=== PATIENT | male | born 1945 | race Caucasian/White ===

== ENCOUNTER 2019-06-29 12:12 | Emergency (ER) | payer OTHER ==
--- NOTE | 2019-06-29 13:42 | RAD REPORT ---
EXAM DESCRIPTION: RAD - Chest Pa And Lat (2 Views) - 06/29/2019 1:35 pm CLINICAL HISTORY: BLUNT CHEST TRAUMA Chest pain. COMPARISON: CHEST PA AND LAT 2 VIEW dated 02/02/2014; CHEST SINGLE VIEW dated 05/26/2009; CHEST SINGLE VIEW dated 05/23/2009; CHEST SINGLE VIEW dated 05/21/2009 FINDINGS: Emphysematous changes are present throughout the lungs. Nondisplaced left lateral seventh, eighth and ninth rib fractures seen. No pneumothorax. Trace left pleural fluid. Heart is mildly enla rged in size.
[2019-06-29] MEDS ORDERED: MORPHINE 4 MG/ML SYR ONE (14:33)
[2019-06-29] MEDS ORDERED: ONDANSETRON 4 MG/2 ML VIAL ONE (14:33)
--- NOTE | 2019-06-29 15:16 | RAD REPORT ---
EXAM DESCRIPTION: CT - Thorax Wo Con - 06/29/2019 2:41 pm CLINICAL HISTORY: PAIN, fall, left-sided chest pain, abnormal chest film COMPARISON: Chest Pa And Lat (2 Views) dated 06/29/2019 TECHNIQUE: Axial 5 mm thick images of the chest were obtained without IV contrast. All CT scans are performed using dose optimization technique as appropriate and may include automated exposure control or mA/KV adjustment according to patient size. FINDINGS: Lungs are fibrotic. Minimal atelectasis change in the posterior gutter. No pulmonary contu jose or acute significant lung parenchymal process. No pleural thickening or pleural effusion. No pne umothorax. No abnormal mediastinal or hilar masses or lymphadenopathy seen. No gross aortic or pulmonary artery finding suspected. Assessment is limited in the absence of IV contrast. No pericardial thickening or effusion. No chest wall mass or abnormal axillary lymphadenopathy. Prominent thoracic spine degenerative changes are present. No thoracic spine compression fracture. La teral left seventh- ninth ribs are fractured. These are nondisplaced fractures. There is questionable nondisplaced fracture of the left sixth rib. These are in a typical linear traumatic orientation. No significant hematoma in the soft tissues. IMPRESSION: Nondisplaced left lateral seventh- ninth rib fractures with questionable nondisplaced si xth rib fracture. Minimal atelectasis changes are present. No pneumothorax, pulmonary contusion or hemothorax.
--- NOTE | 2019-06-29 15:54 | EDPHYS ---
Physician Documentation [facility] Name: Mitch Jim Jr Age: 74 yrs Sex: Male : 1945 Arrival Date: 06/29/2019 Time: 12:16 Bed 20 Private MD: ED Physician Shawn Mota HPI: 06/28 19:56 This 74 yrs old Male presents to ER via Ambulatory with complaints of Fall tw4 Injury. 19:56 Details of fall: The patient fell from an upright position, while standing. tw4 19:56 Onset: The symptoms/episode began/occurred 3 day(s) ago. Associated injuries: The tw4 patient sustained left breast. The patient has not experienced similar symptoms in the past. Historical: - Allergies: 12:58 No Known Allergies; ca1 - Home Meds: 12:58 metoprolol tartrate 25 mg Oral tab 1 tab once daily [Active]; aspirin 81 mg Oral chew 1 ca1 tab once daily [Active]; Symbicort 160-4.5 mcg/actuation inhalation HFAA 2 puffs 2 times per day [Active]; temazepam 30 mg Oral cap 1 cap once daily [Active]; hydrocodone-acetaminophen 5-325 mg Oral tab 1 tab three times a day [Active]; gabapentin 600 mg oral tab 1 tab 3 times per day [Active]; cyclobenzaprine 10 mg Oral tab 1 tab daily [Active]; Requip 1 mg Oral tab 1 tab daily [Active]; - PMHx: 12:58 Hypertension; ca1 - Immunization history:: Adult Immunizations up to date, Pneumococcal vaccine is up to date, Flu vaccine is up to date. - Social history:: Smoking status: Patient reports the use of cigarette tobacco products, smokes one pack cigarettes per day. ROS: 19:56 Constitutional: Negative for fever, chills, and weight loss, Respiratory: Negative for tw4 shortness of breath, cough, wheezing, and pleuritic chest pain, Abdomen/GI: Negative for abdominal pain, nausea, vomiting, diarrhea, and constipation, Back: Negative for injury and pain, MS/Extremity: Negative for injury and deformity, Skin: Negative for injury, rash, and discoloration, Neuro: Negative for headache, weakness, numbness, tingling, and seizure. 19:56 Eyes: Negative for injury, pain, redness, and discharge. 19:56 Cardiovascular: Positive for chest pain, Negative for edema, orthopnea. Exam: 19:56 Constitutional: This is a well developed, well nourished patient who is awake, alert, tw4 and in no acute distress. Head/Face: Normocephalic, atraumatic. Cardiovascular: Regular rate and rhythm with a normal S1 and S2. No gallops, murmurs, or rubs. Normal PMI, no JVD. No pulse deficits. Respiratory: Lungs have equal breath sounds bilaterally, clear to auscultation and percussion. No rales, rhonchi or wheezes noted. No increased work of breathing, no retractions or nasal flaring. Abdomen/GI: Soft, non-tender, with normal bowel sounds. No distension or tympany. No guarding or rebound. No evidence of tenderness throughout. Back: No spinal tenderness. No costovertebral tenderness. Full range of motion. MS/ Extremity: Pulses equal, no cyanosis. Neurovascular intact. Full, normal range of motion. Neuro: Awake and alert, GCS 15, oriented to person, place, time, and situation. Cranial nerves II-XII grossly intact. Motor strength 5/5 in all extremities. Sensory grossly intact. Cerebellar exam normal. Normal gait. 19:56 Chest/axilla: Inspection: normal, Palpation: Vital Signs: 12:48 BP 128 / 73; Pulse 68; Resp 18 S; Temp 97(TE); Pulse Ox 97% on R/A; Weight 68.04 kg ca1 (R); Height 6 ft. 2 in. (187.96 cm) (R); Pain 7/10; 14:16 BP 143 / 65; Pulse 63; Resp 18; Temp 98.6; Pulse Ox 97% on R/A; mg2 16:10 BP 122 / 74; Pulse 63; Resp 18; Pulse Ox 96% on R/A; mg2 12:48 Body Mass Index 19.26 (68.04 kg, 187.96 cm) ca1 Johnny Coma Score: 13:56 Eye Response: spontaneous(4). Verbal Response: oriented(5). Motor Response: obeys mg2 commands(6). Total: 15. Trauma Score (Adult): 13:56 Eye Response: spontaneous(1); Verbal Response: oriented(1); Motor Response: obeys mg2 commands(2); Systolic BP: > 89 mm Hg(4); Respiratory Rate: 10 to 29 per min(4); Glasford Score: 15; Trauma Score: 12 MDM: 14:09 Patient medically screened. tw4 19:56 Differential diagnosis: abrasion, closed head injury, fracture. Data reviewed: vital tw4 signs, nurses notes. Counseling: I had a detailed discussion with the patient and/or guardian regarding: the historical points, exam findings, and any diagnostic results supporting the discharge/admit diagnosis. Special discussion: I discussed with the patient/guardian in detail that at this point there is no indication for admission to the hospital. It is understood, however, that if the symptoms persist or worsen the patient needs to return immediately for re-evaluation. 06/28 12:59 Order name: XRAY Chest Pa And Lat (2 Views); Complete Time: 13:55 ca1 06/28 14:16 Order name: CT Chest Wo Con; Complete Time: 15:51 tw4 06/28 15:51 Interpretation: Abnormal. tw4 Administered Medications: 15:00 Drug: morphine 4 mg Route: IVP; Site: right antecubital; mg2 16:10 Follow up: Response: No adverse reaction; Marked relief of symptoms; RASS: Alert and mg2 Calm (0) 15:00 Drug: Zofran (Ondansetron) 4 mg Route: IVP; Site: right antecubital; mg2 16:09 Follow up: Response: No adverse reaction mg2 Disposition: 06/29/19 15:53 Discharged to Home. Impression: Fracture of one rib, left side. - Condition is Stable. - Discharge Instructions: Rib Fracture, Dteb-so-Indt. - Medication Reconciliation Form, Thank You Letter, Antibiotic Education, Prescription Opioid Use form. - Follow up: Private Physician; When: Upon discharge from the Emergency Department; Reason: Recheck today's complaints, Continuance of care, Re-evaluation by your physician. - Problem is new. - Symptoms have improved. Signatures: Dispatcher [employer] EDMS Shawn Mota MD MD tw4 Dar Mayorga, MARIELA RN mg2 Danni Oliver RN RN ca1 Corrections: (The following items were deleted from the chart) 15:52 15:51 No acute disease except. tw4 tw4 16:20 15:53 06/29/2019 15:53 Discharged to Home. Impression: Fracture of one rib, left side. mg2 Condition is Stable. Forms are Medication Reconciliation Form, Thank You Letter, Antibiotic Education, Prescription Opioid Use. Follow up: Private Physician; When: Upon discharge from the Emergency Department; Reason: Recheck today's complaints, Continuance of care, Re-evaluation by your physician. Problem is new. Symptoms have improved. tw4
--- NOTE | 2019-06-29 15:54 | ER ---
Nurse's Notes [facility] Name: Mitch Jim Jr Age: 74 yrs Sex: Male : 1945 Arrival Date: 06/29/2019 Time: 12:16 Bed 20 Private MD: Diagnosis: Fracture of one rib, left side Presentation: 06/28 12:48 Chief complaint: Patient states: a week and half ago, Fell and hit the L side of the ca1 body. Chest Xray done on Saturday at [place]. Resulted today and told to come to the ER for rib fractures. Xray reads, "1) Fracture L lateral 7th through 9th ribs. 2) Small Pleural effusion. Cannot rule out small L hemothorax'. Coronavirus screen: The patient has NOT traveled to [place] in the past 14 days. The patient has NOT had contact with known and/or suspected case of Coronavirus. Ebola Screen: Patient negative for fever greater than or equal to 101.5 degrees Fahrenheit, and additional compatible Ebola Virus Disease symptoms Patient denies exposure to infectious person. Patient denies travel to an Ebola-affected area in the 21 days before illness onset. No symptoms or risks identified at this time. Initial Sepsis Screen: Does the patient meet any 2 criteria? No. Patient's initial sepsis screen is negative. Does the patient have a suspected source of infection? No. Patient's initial sepsis screen is negative. Risk Assessment: Do you want to hurt yourself or someone else? Patient reports no desire to harm self or others. Onset of symptoms was June 29, 2019. 12:48 Method Of Arrival: Ambulatory ca1 12:48 Acuity: MARYLIN 3 ca1 Triage Assessment: 12:58 General: Appears in no apparent distress. comfortable, Behavior is calm, cooperative, ca1 appropriate for age. Respiratory: Airway is patent Respiratory effort is even, unlabored, Respiratory pattern is regular, symmetrical. Historical: - Allergies: 12:58 No Known Allergies; ca1 - Home Meds: 12:58 metoprolol tartrate 25 mg Oral tab 1 tab once daily [Active]; aspirin 81 mg Oral chew 1 ca1 tab once daily [Active]; Symbicort 160-4.5 mcg/actuation inhalation HFAA 2 puffs 2 times per day [Active]; temazepam 30 mg Oral cap 1 cap once daily [Active]; hydrocodone-acetaminophen 5-325 mg Oral tab 1 tab three times a day [Active]; gabapentin 600 mg oral tab 1 tab 3 times per day [Active]; cyclobenzaprine 10 mg Oral tab 1 tab daily [Active]; Requip 1 mg Oral tab 1 tab daily [Active]; - PMHx: 12:58 Hypertension; ca1 - Immunization history:: Adult Immunizations up to date, Pneumococcal vaccine is up to date, Flu vaccine is up to date. - Social history:: Smoking status: Patient reports the use of cigarette tobacco products, smokes one pack cigarettes per day. Screenin:58 Abuse screen: Denies threats or abuse. Denies injuries from another. Nutritional mg2 screening: No deficits noted. Tuberculosis screening: No symptoms or risk factors identified. 14:00 Fall Risk mg2 Primary Survey: 13:56 NO uncontrolled hemorrhage observed. A: The patient is alert. Breathing/Chest: mg2 Respiratory pattern: regular, Respiratory effort: spontaneous, unlabored. Circulation:. Disability Alert. Exposure/Environment: All clothing and personal items were removed. Forensic evidence collection is not deemed to be indicated at this time. Items placed in patient belonging bag. There is no evidence of uncontrolled external bleeding. No obvious injuries are noted at this time. A warming method has been applied: A warm blanket has been provided to the patient. Assessment: 13:59 General: Appears in no apparent distress. comfortable, Behavior is calm, cooperative. mg2 Pain: Complains of pain in chest. Neuro: Level of Consciousness is awake, alert, obeys commands, Oriented to person, place, time, situation. Cardiovascular: Capillary refill < 3 seconds Patient's skin is warm and dry. Respiratory: Airway is patent Respiratory effort is even, unlabored, Respiratory pattern is regular, symmetrical. GI: No signs and/or symptoms were reported involving the gastrointestinal system. : No signs and/or symptoms were reported regarding the genitourinary system. EENT: No signs and/or symptoms were reported regarding the EENT system. Derm: Skin is intact, is healthy with good turgor, Skin is pink, warm \\T\\ dry. normal. Musculoskeletal: Circulation, motion, and sensation intact. Capillary refill < 3 seconds. 14:30 Reassessment: pt sent to ct scan. mg2 Vital Signs: 12:48 BP 128 / 73; Pulse 68; Resp 18 S; Temp 97(TE); Pulse Ox 97% on R/A; Weight 68.04 kg ca1 (R); Height 6 ft. 2 in. (187.96 cm) (R); Pain 7/10; 14:16 BP 143 / 65; Pulse 63; Resp 18; Temp 98.6; Pulse Ox 97% on R/A; mg2 16:10 BP 122 / 74; Pulse 63; Resp 18; Pulse Ox 96% on R/A; mg2 12:48 Body Mass Index 19.26 (68.04 kg, 187.96 cm) ca1 Johnny Coma Score: 13:56 Eye Response: spontaneous(4). Verbal Response: oriented(5). Motor Response: obeys mg2 commands(6). Total: 15. Trauma Score (Adult): 13:56 Eye Response: spontaneous(1); Verbal Response: oriented(1); Motor Response: obeys mg2 commands(2); Systolic BP: > 89 mm Hg(4); Respiratory Rate: 10 to 29 per min(4); Johnny Score: 15; Trauma Score: 12 ED Course: 12:16 Patient arrived in ED. mr 12:54 Triage completed. ca1 12:58 Arm band placed on right wrist. ca1 13:36 XRAY Chest Pa And Lat (2 Views) In Process Unspecified. EDMS 13:46 Shawn Mota MD is Attending Physician. tw4 13:52 aDr Mayorga, RN is Primary Nurse. mg2 13:59 No provider procedures requiring assistance completed. mg2 14:00 Patient has correct armband on for positive identification. mg2 14:30 Inserted saline lock: 20 gauge in right antecubital area, using aseptic technique. mg2 14:44 CT Chest Wo Con In Process Unspecified. EDMS 16:20 IV discontinued, intact, bleeding controlled, No redness/swelling at site. Pressure mg2 dressing applied. Administered Medications: 15:00 Drug: morphine 4 mg Route: IVP; Site: right antecubital; mg2 16:10 Follow up: Response: No adverse reaction; Marked relief of symptoms; RASS: Alert and mg2 Calm (0) 15:00 Drug: Zofran (Ondansetron) 4 mg Route: IVP; Site: right antecubital; mg2 16:09 Follow up: Response: No adverse reaction mg2 Intake: 13:56 PO: 0ml; Total: 0ml. mg2 Outcome: 15:53 Discharge ordered by MD. [email or web address] 16:20 Discharged to home ambulatory, with family. mg2 16:20 Condition: good 16:20 Discharge instructions given to patient, family, Instructed on discharge instructions, follow up and referral plans. Demonstrated understanding of instructions, follow-up care. 16:20 Patient left the ED. mg2 Signatures: Dispatcher [employer] TAIWO Elmer Sara valdivia Shawn Mota MD MD tw4 Dar Mayorga RN RN mg2 Danni Oliver RN RN ca1 Corrections: (The following items were deleted from the chart) 14:30 13:59 Patient did not have IV access during this emergency room visit. mg2 mg2
[2019-06-29 17:45] VITALS: TEMP 98.6
[2019-06-29 17:49] VITALS: BP 122/74; O2SAT 96
== END 2019-06-29 16:20 | disposition home or self-care (01) ==
LOC: ER 12:12
DX: S22.32XA Fracture of one rib, left side, initial encounter for closed fracture (principal); W19.XXXA Unspecified fall, initial encounter; Y93.9 Activity, unspecified; Y92.9 Unspecified place or not applicable; I10 Essential (primary) hypertension; F17.210 Nicotine dependence, cigarettes, uncomplicated
CPT/HCPCS: 71250; 71046; 96375; 96374; 99283; J2405

== ENCOUNTER 2021-04-27 17:58 | Inpatient (IN) | payer OTHER ==
--- NOTE | 2021-05-07 10:30 | R.PREADM ---
PRE-ADMISSION SCREENING FORM SCREENING DATE AND TIME 05/07/2021 10:00 (EST) ANTICIPATED REHAB ADMISSION DATE 05/07/2021 REFERRING FACILITY [facility] REFERRAL DATE AND TIME 04/28/2021 08:37 (APPLICATIONS CONSULTANT) REFERRAL ROOM# J704 ACUTE ADMIT DATE 04/27/2021 Previous Rehabilitation(s): No. 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 Jemma Nevarez REFERRING PHYSICIAN Dr. Jemma Nevarez REHAB FACILITY [facility] CLINICAL LIAISON [place] Nance PHYSICIAN REVIEWER Dr. Salvador Hager M.D. MR# [id number] NAME LUCIA JIM ADDRESS [address] [facility] [address] [facility] [id number] DATE OF 1945 AGE 76 SSN# [id number] GENDER male MARITAL STATUS RACE white PREF. LANGUAGE (IF NON-[place]ER) French ADMIT FROM 02 - [facility] PRE-HOSPITAL LIVING SETTING 01 - Home (private home/apt. board/care, assisted living, retirement, transitional living) HOME TYPE AND DETAILS Type of home: single family house # of steps to enter the residence: 0 # of steps within the residence: 0 # of levels in the residence: 1 PRE-HOSPITAL LIVING WITH Family/Relatives FAMILY SUPPORT Yes FAMILY SUPPORT DETAILS Per PT eval, pt reports living with his sister. PRIMARY FAMILY CONTACT NAME Megan Jim Jr PRIMARY FAMILY CONTACT PHONE PRIMARY FAMILY CONTACT RELATIONSHIP Spouse PHONE PRIMARY FAMILY CONTACT ON ADM.? no IS PRIMARY FAMILY CONTACT AUTH. REP.? no 1ST EMERGENCY CONTACT Megan Jim Jr 1ST CONTACT PHONE 1ST CONTACT RELATIONSHIP Spouse PHONE 1ST CONTACT ON ADM. no IS 1ST CONTACT AUTH. REP.? no PHONE 2ND CONTACT ON ADM.? no PATIENT EMPLOYMENT STATUS Not Working PATIENT EMPLOYER No Employer PAYOR INFORMATION: 1ST PAYOR NAME Medicare A B 1ST PAYOR 2ND PAYOR NAME [employer] 2ND PAYOR PHONE 2ND PAYOR INJURY/ILLNESS DUE TO ACCIDENT? No ANOTHER [employer] RESPONSIBLE? No PRIMARY REHAB/ACUTE DIAGNOSIS: Acute L MCA stroke ONSET DATE 04/27/2021 REHAB IMPAIRMENT CATEGORY (SHAWN): 01 Stroke (STR) MEETS 60% rule AFFECTED EXTREMITIES: RLE, and RUE PRIMARY DIAGNOSIS-RELATED SURGERIES: Cerebral Angiogram 04/27/2021 Peg tube placement 05/03/2021 INTERVENTIONS: - Dysarthria/Dysphagia Peg tube placed 05/03/2021 per pt's chart - Respiration Supplemental O2 as needed to maintain O2 sats above 88% per MD progress note 05/03/2021 - CV BP control gaol SBP < 140, on lisinopril 5mg po qday, titrate oral agents - per MD progress note 08/2021 - Hyperlipidemia LDL 19 at goal <70, low dose statin for pleiotropic effect - per MD progress note 05/03/2021 - HF TTE shows 30-35% and diffuse hypokinesis; no change from previous, Metoprolol 25 mg BID, lisinopril 5 mg - per MD progress note - Renal Avoid Nephrotoxic agents - per MD progress note 05/03/2021 - HEME Anemia, monitor, transfuse for Hb <7 - per MD progress note 05/03/2021 - ID, PNA, possible aspiration, MRSA+ s/p ceftriaxone, vancomycin, flagyl started 04/28, afebrile, no leukocytosis since then --> de-escala te to po clindamycin to complete 7 days (started 05/02) - per MD progress note 05/03/2021 - Prophylaxis DVT: SQH, Bowel regimen: senna; last BM 05/01 - per MD progress note 05/03/2021 RISK FOR COMPLICATIONS: - Aspiration Clinical staff will monitor for coughing, drooling, congestion Nursing will monitor patient swallowing during meals Speech will evaluate swallowing and dysphagia Swallowing difficulties per therapy notes. Monitor for signs of aspiration. NURSING OFFICER as ordered by MD patient on peg tube 05/03/2021 - UTI Monitor for frequency, burning, discomfort, or incontinence - CVA Monitor signs and symptoms of stroke - PNA Clinical staff to encourage OOB movements/tasks/activities Clinical staff to encourage breathing exercises - Skin Breakdown Nursing will assess skin daily using assessment tool and will place on Skin Breakdown Precautions as Indicated per protocol - Pain Clinical staff will assess patient's pain level every shift per protocol to monitor for pain manageme nt effectiveness Educate patient on pain management strategies Medications will be given and the pain level reassessed. Clinical Staff may employ other methods such as: massage, distraction, decrease stimulus, etc. as needed - Falls Educated pt on fall prevention strategies to reduce/eliminate fall risk Patient will be evaluated for Fall Precautions and will be placed on Fall Precautions as indicated pe r protocol. - Impaired Safety Educate patient on safety awareness strategies. Educate patient on safety hazards - Bleeding Monitor lab values - Limb Ischemia Assess circulation each shift Report any changes to MD - Sespsis Monitor lab values - Respiratory Monitor O2 sats. SUMMARY OF ACUTE HOSPITALIZATION: On 04/27/2021 Pt. presented to [facility] with sudden onset of right-side weakness. Pt. is a 76 yo white male. On 04/27/2021 he was admitted to [facility] with diagnosis Acute L MCA stroke. His impairment category is Stroke 01 - Right Body (Left Brain) (01.2). Pre-morbidly, Pt. was independent/mod-I in Safety Awareness, Locomotion, Social Cognition, Transfers Control, and Balance; and he had good Transfers Control, Sphincter Control, Self-Care, Communication, and Endurance. Currently, he has deficits of Locomotion, Safety Awareness, Social Cognition, Balance, Transfers Cont rol, Sphincter Control, Self-Care, Communication, and Endurance. Pt. is now referred to [facility] for acute in-patient rehabilitation in order to maximize patient's functional independence in activities of daily living, strength, ROM, and mobi lity. Patient has realistic goal of being discharged at assistance level partial assist to independent to r eside at Home with Family/Relatives. interdisciplinary approach by acute IRF, pt. demonstrates great potential and motivation to get stronger, safer, and more independent to return to [facility]. Pt demonstrates a strong need for an intensive team: rehab doctor, nurse, social insurance analyst, and therapist to meet functional and medical goals. It is reasonable and necessary for the patient to come to acute IRF to safely dc. Pt is medically stable but in need of 24 hour nursing, doctor supervision, and oversight while receiving active and ongoing intensive (OT/PT/ST). The patient is reasonably expected to participate in 3 hours of therapy a day/15 hours a week. COVID-19 screening performed. Patient denies a new onset of fever, cough, difficulty breathing, sore throat, body aches and non-allergy nasal congestion in the past 24 hours. Patient denies travel outside of [place] in the past 14 days. Patient denies any contact with someone who has a confirmed diagnosis of or is under investigation for COVID-19 in the past 14 days. Patient has been tested negative for COVID- 19. 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 PAST SURGICAL HISTORY: Percutaneous endoscopic gastrostomy tube placement 05/03/2021 Cerebral Angiogram 04/27/2021 MEDICATION ALLERGIES: No Known Drug Allergies (NKDA) ENVIRONMENTAL ALLERGIES: None Known - Substance Allergies None Known - Other Allergies None Known CODE STATUS: Full code WEIGHT/HEIGHT/BMI: WEIGHT 154 lbs HEIGHT ' 6.0" BMI 20.9 DIET: - Diet Type NPO - Diet - Solid Texture Regular - Diet - Liquid Texture Regular - Tube Feed N/A Pt found to have L brain stroke causing increased weakness, facial droop, and decreased sensitivity t o R side - per pt's chart REVIEW OF SYSTEMS: - Gen Alert and awake Lying in bed No apparent distress Oriented to: person, time, and place - Vital Signs Temperature: 97.6 F SBP/DBP: 132/76 Pulse: 86 Resp: 21 Vital signs stable, afebrile - CVS RRR VITAL SIGNS Temperature: 97.6 F SBP/DBP: 132/76 Pulse: 86 Resp: 21 Vital signs stable, afebrile Vitals obtained in pt's chart, documented by nursing 05/02/2021 MEDICATIONS/TREATMENT: Other- See attached MAR (Medication Administration Record). CURRENT SPHINCTER CONTROL: Pre-hospital bladder status: unspecified # of bladder accidents in the last 7 days prior to screenin Pre-hospital bowel status: unspecified # of bowel accidents in the last 7 days prior to screenin Last Bowel Movement Date: 05/07/2021 CURRENT LOCOMOTION STATUS: distance walked 0 feet DETAILED CURRENT FUNCTIONAL STATUS: - Bladder accident frequency: 7-Ind - No accidents in the past 7 days - Bowel accident frequency: 7-Ind - No accidents in the past 7 days - Walking score based on distance walked: 0(N/A) - Wheelchair score based on distance traveled: 0(N/A) QI SCORES: - Self-Care A. Eating 01-Dependent B. Oral hygiene 03-Partial/moderate assistance C. Toileting hygiene 02-Substantial/maximal assistance E. Shower/bathe self 02-Substantial/maximal assistance F. Upper body dressing 03-Partial/moderate assistance G. Lower body dressing 02-Substantial/maximal assistance H. Putting on/taking off footwear 02-Substantial/maximal assistance - Mobility A. Roll left and right 03-Partial/moderate assistance B. Sit to lying 03-Partial/moderate assistance C. Lying to sitting on side of bed 03-Partial/moderate assistance D. Sit to stand 03-Partial/moderate assistance E. Chair/taq-ia-nxxhl transfer 03-Partial/moderate assistance F. Toilet transfer 03-Partial/moderate assistance G. Car transfer 88-Not attempted due to medical condition or safety concerns I. Walk 10 feet 88-Not attempted due to medical condition or safety concerns J. Walk 50 feet with two turns 88-Not attempted due to medical condition or safety concerns K. Walk 150 feet 88-Not attempted due to medical condition or safety concerns L. Walking 10 feet on uneven surfaces 88-Not attempted due to medical condition or safety concerns M. 1 step (curb) 88-Not attempted due to medical condition or safety concerns N. 4 steps 88-Not attempted due to medical condition or safety concerns O. 12 steps 88-Not attempted due to medical condition or safety concerns P. Picking up object R. Wheel 50 feet with two turns 88-Not attempted due to medical condition or safety concerns S. Wheel 150 feet 88-Not attempted due to medical condition or safety concerns - Bladder and Bowel Bladder continence Bowel continence - Endurance Fair - Balance Fair - Safety Awareness Fair CURRENT FUNC. DEFICITS: Self-Care, Mobility, Endurance, Balance, and Safety Awareness CURRENT / PREVIOUS ASSISTIVE DEVICES: Oxygen Rolling Walker HISTORY OF FALLS. HAS THE PATIENT HAD TWO OR MORE FALLS IN THE PAST YEAR OR ANY FALL WITH INJURY IN T HE PAST YEAR?: Unknown PRIOR SURGERY. DID THE PATIENT HAVE MAJOR SURGERY DURING THE 100 DAYS PRIOR TO ADMISSION?: Yes THERAPY NOTES FROM ACUTE CARE: Gabrielle Jim Jr Clinicals.pdf ached. SPECIAL NEEDS: - Safety Concerns Skin breakdown precautions needed due to skin breakdown risk Fall precautions needed due to Fall history, Poor balance, and High fall risk Chair alarm - Respiratory Supplemental oxygen: 3 liters Nasal Canula - per OT note - Feeding Tube PEG tube - Limb precaution awareness to right side due to increased weakness as a result of stroke PRECAUTIONS: - Weight Bearing Precaution WBAT all extremities per pt's chart - Fall Precaution Bed alarm TABS alarm Wheel chair alarm - Skin Breakdown Risk skin assessments - Aspiration Precaution Pt on peg tube feeding - Safety Fall risk assist with xfers/STS - O2 saturations monitor O2 levels - Stroke Monitor signs and symptoms of stroke PATIENT NEEDS ACTIVE AND ONGOING THERAPEUTIC INTERVENTION OF MULTIPLE THERAPY DISCIPLINES, INCLUDING: - Dietary and Nutrition Adequate Nutrition. Nutritional Education. Nutritional Supplements. - Occupational Therapy Cognitive Retraining. Evaluate and Treat. ADL Training. Adaptive Equipment. Eating. Household Tasks. Patient/Family Education. Safety Awareness. Transfer Training. UE ROM. UE Strengthening. Visual Perce ptual Training. - Speech Therapy Cognitive Training. Expressive Language Skills. Memory Strategies. Receptive Language Skills. Speech Intelligibility Training. - Physical Therapy Balance Training. Evaluate and Treat. Gait Training. LE ROM. LE Strengthening. Medical Equipment Asse ssment and Evaluation. Mobility Training. Patient/Family Education. Safety Awareness. Transfer Traini ng. PATIENT NEEDS CLOSE MEDICAL SUPERVISION BY A REHABILITATION PHYSICIAN FOR: Coordination of Treatment Team Medical and Co-Morbidity Management Pain Management Post-Op follow up medication management PATIENT REQUIRES 24X7 REHAB NURSING FOR MEDICAL AND FUNCTIONAL MGT. 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 - Consensus on plan Discharge plan has been discussed with primary caregiver. Patient/Family is in agreement with the radha n. Primary caregiver is in agreement with the plan. - Patient/Family Goals Return home independently. - Planned Living Setting Upon Discharge Home, to live with Family/Relatives. Transitional Living. RECOMMENDED CARE LEVEL: IRF RECOMMENDATION DETAILS: Recommended Admission to Comprehensive Rehabilitation Program to Increase Functional Thayer SCREENER'S COMPLETENESS CONFIRMATION: - Screening Confirmation The patient data collection on this preadmission screening form is finished PHYSICIANS REVIEW AND ADMISSION DETERMINATION Admit - Based on my review of the Pre-Admission Screening results, in my medical judgment and experie nce, I concur with the findings and recommend admission to [facility], as this patient requires an IRF level of care. SIGNATURE PANEL: Air Brake Tester - [electronically] signed by Andrea Wallace on 05/05/2021 at 15:08 (APPLICATIONS CONSULTANT) Air Brake Tester - [electronically] signed by Soy Armstrong PT on 05/07/2021 at 10:10 (APPLICATIONS CONSULTANT) Physician Reviewer - [electronically] signed by Dr. Salvador Hager M.D. on 05/07/2021 at 10:29 (APPLICATIONS CONSULTANT )
--- OUTSIDE RECORDS SUMMARY | 2021-05-07 15:49 | XMS REPORT | Continuity of Care Document ---
:1945 Author Organization [facility] t Address [address] [place] [id number] Care Team Providers Name Role Phone Unavailable Unavailable Unavailable Problems This patient has no known problems. Allergies, Adverse Reactions, Alerts This patient has no known allergies or adverse reactions. Medications This patient has no known medications. Procedures This patient has no known procedures. Encounters Start End Encounter Admission Attending Care Care Encounter Source Date/Time Date/Time Type Type Clinicians Facility Department ID 2020-02-25 2020-02-[address] [facility] [id number] [facility] 00:00:00 00:00:00 Bernardino Donohue ent Clinics Results This patient has no known results.
[2021-05-07 16:36] VITALS: BMI 15.1
[2021-05-07] MEDS ORDERED: DOCUSATE NA/SENNA CONC 1 TAB PO PRN (18:26)
[2021-05-07] MEDS ORDERED: [UNRECOGNIZED DRUG - MIXTURE] FT SCH (18:30)
[2021-05-07 19:14] LABS: Urine Appearance CLEAR (Clear); Urine Bilirubin NEGATIVE (Negative); Urine Blood NEGATIVE (Negative); Urine Color YELLOW (Yellow); Urine Glucose NEGATIVE (Negative); Urine Protein NEGATIVE (Negative); Urine pH 7.5 (5.0-7.0)
[2021-05-07 19:21] LABS: Urine Microscopic Reflex NO UMIC
[2021-05-07] MEDS ORDERED: ALBUTEROL 2.5 MG/3 ML NEB SOL NEB SCH (20:00)
[2021-05-07] MEDS ORDERED: PIPERACIL/TAZO 3.375 GM VIAL IV ONE (20:17)
[2021-05-07] MEDS ORDERED: VANCOMYCIN 500 MG/VIAL ONE (20:25)
[2021-05-07] MEDS ORDERED: NA CHLORIDE 0.9% 250 ML ONE (20:46)
[2021-05-07] MEDS: VANCOMYCIN 750 MG in NA CHLORIDE 0.9% 150 ML IVPB SCH (21:00)
[2021-05-07] MEDS: MELATONIN 3 MG TABLET PO SCH (21:00)
[2021-05-07] MEDS: APIXABAN 5 MG TABLET PO SCH (21:02)
[2021-05-07] MEDS: ROSUVASTATIN 10 MG TAB PO SCH (21:03)
[2021-05-07] MEDS ORDERED: WATER FOR INJ,STERILE 10 ML ONE (21:09)
[2021-05-07] MEDS: ACETAMINOPHEN 160 MG/5 ML UCUP PO PRN (21:16)
[2021-05-07] MEDS: PIPER TAZO 3.375 GM in NA CHLORIDE 0.9% 100 ML IV SCH (22:44)
[2021-05-08] MEDS: PIPER TAZO 3.375 GM in NA CHLORIDE 0.9% 100 ML IV SCH ×3 (01:00→16:14)
[2021-05-08] MEDS: METOPROLOL TAR 25 MG TAB PO SCH ×2 (05:07→17:11)
[2021-05-08 06:34] LABS: Absolute Lymphocytes (CBC) 0.9 K/uL (0.7-4.9); Hematocrit 38.5 % (39.6-49.0); Lymphocytes % 8.8 % (15.3-44.8); MPV 7.2 fL (7.6-11.3); RBC Red Blood Cell Count 4.23 M/uL (4.33-5.43)
[2021-05-08 06:52] LABS: Albumin 2.3 g/dL (3.4-5.0); BUN Blood Urea Nitrogen 28 mg/dL (7-18); Bicarbonate 32 mmol/L (21-32); Glucose Level 120 mg/dL (74-106); Magnesium 1.9 mg/dL (1.8-2.4); Potassium 4.2 mmol/L (3.5-5.1); Prealbumin 19.8 mg/dL (20-40); Sodium Level 135 mmol/L (136-145)
[2021-05-08] MEDS: MULTIVITAMINS 5 ML ORAL SYR FT SCH ×2 (08:00→13:40)
[2021-05-08] MEDS ORDERED: lisinopriL 10 MG TAB PO SCH (08:00)
[2021-05-08] MEDS: THIAMINE HCL 100 MG TABLET PO SCH (08:03)
[2021-05-08] MEDS: NICOTINE 7 MG/PAT TD SCH (08:03)
[2021-05-08] MEDS: APIXABAN 5 MG TABLET PO SCH ×2 (08:03→19:42)
[2021-05-08] MEDS: FAMOTIDINE 20 MG TAB PO SCH ×2 (08:03→19:37)
[2021-05-08] MEDS: VANCOMYCIN 750 MG in NA CHLORIDE 0.9% 150 ML IVPB SCH (08:05)
--- NOTE | 2021-05-08 17:12 | R.HP ---
HISTORY AND PHYSICAL FACILITY: [facility] ENCOUNTER DATE AND TIME: 05/08/2021 16:56 (SHOE TURNER) MR#: [id number] NAME LUCIA BACON ADDRESS: [address] [place] [address]: [place] STATE: [place] [id number] PHONE: DATE OF : 1945 AGE: 76 SSN# [id number] GENDER: Male DEXTERITY Unknown dexterity MARITAL STATUS RACE White PRE-HOSPITAL LIVING SETTING 01 - Home (private home/apt. board/care, assisted living, senior living, transitional living) PRE-HOSPITAL LIVING WITH Family/Relatives ENCOUNTER PHYSICIAN: Dr. Salvador Hager M.D. REFERRING DOCTOR: Dr. Jemma Nevarez DATE OF ADMISSION: 05/07/2021 15:42 (SHOE TURNER) REFERRING FACILITY [facility] HOME TYPE AND DETAILS: Type of home: single family house # of steps to enter the residence: 0 # of steps within the residence: 0 # of levels in the residence: 1 ONSET DATE: 04/27/2021 PRIMARY DIAGNOSIS-RELATED SURGERIES: Cerebral Angiogram 04/27/2021 Peg tube placement 05/03/2021 HISTORY OF PRESENT ILLNESS (HPI): On 04/27/2021 Pt. presented to [facility] with sudden onset of right-side weakness. Pt. is a 76 yo white male. On 04/27/2021 he was admitted to [facility] with diagnosis Acute L MCA stroke. His impairment category is Stroke 01 - Right Body (Left Brain) (01.2). Pre-morbidly, Pt. was independent/mod-I in Safety Awareness, Locomotion, Social Cognition, Transfers Control, and Balance; and he had good Transfers Control, Sphincter Control, Self-Care, Communication, and Endurance. Currently, he has deficits of Locomotion, Safety Awareness, Social Cognition, Balance, Transfers Cont rol, Sphincter Control, Self-Care, Communication, and Endurance. Pt. is now referred to [facility] for acute in-patient rehabilitation in order to maximize patient's functional independence in activities of daily living, strength, ROM, and mobi lity. Patient has realistic goal of being discharged at assistance level partial assist to independent to r eside at Home with Family/Relatives. interdisciplinary approach by acute IRF, pt. demonstrates great potential and motivation to get stronger, safer, and more independent to return to [facility]. Pt demonstrates a strong need for an intensive team: rehab doctor, nurse, child welfare social worker, and therapist to meet functional and medical goals. It is reasonable and necessary for the patient to come to acute IRF to safely dc. Pt is medically stable but in need of 24 hour nursing, doctor supervision, and oversight while receiving active and ongoing intensive (OT/PT/ST). The patient is reasonably expected to participate in 3 hours of therapy a day/15 hours a week. COVID-19 screening performed. Patient denies a new onset of fever, cough, difficulty breathing, sore throat, body aches and non-allergy nasal congestion in the past 24 hours. Patient denies travel outside of [place] in the past 14 days. Patient denies any contact with someone who has a confirmed diagnosis of or is under investigation for COVID-19 in the past 14 days. Patient has been tested negative for COVID- 19. 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 PAST SURGICAL HISTORY: Percutaneous endoscopic gastrostomy tube placement 05/03/2021 Cerebral Angiogram 04/27/2021 SOCIAL HISTORY: - Home Living Family/Relatives REVIEW OF SYSTEMS: - Gen No Chills Fatigue No Fever - Eyes No Double Vision No itchiness - ENMT Difficulty Swallowing - CVS No Chest Discomfort No Chest Pain Fatigue No Weight Gain - Resp No Cough No Shortness of Breath - GI Continent No Abdominal Pain Constipation No Diarrhea - Continent No Kidney Pain No Painful Urination No Urinary Urgency - MSK No Joint Pain Muscle Cramps Stiffness - Skin No Itching No Rash No Suspicious Lesions - Neuro Coordination Difficulty No Difficulty with Concentration No Memory Loss No Seizures Weakness - Psych No Anxiety No Depression No HIV Exposure No Persistent Infections No Seasonal Allergies - Endo No Cold/Heat Intolerance No Excessive Hunger No Excessive Thirst No Excessive Urination PHYSICAL EXAM - Gen Alert and awake Lying in bed No apparent distress Oriented to: person, time, and place - Skin No breakdown No abnormalities - Eyes No abnormalities - ENMT No abnormalities - Neck No abnormalities - CVS RRR - Chest Mildly decreased breath sounds bilaterally. - Abd Soft - GI + bowel sounds Deferred - No abnormalities - Ext Mild right lower extremity edema. - MSK 4+/5 weakness in left upper and lower extremity - Neuro 4/5 strength right upper and lower extremities. - Psych No abnormalities - OTHER Ambulated 250' with contact guard assistance using a rolling walker. VITAL SIGNS Temperature: 98.0 F SBP/DBP: 118/58 Pulse: 66 Resp: 18 NURSING: - Shower allowing shower - Bladder care per protocol - Skin care per protocol PRECAUTIONS: - Weight Bearing Precaution WBAT all extremities per pt's chart - Fall Precaution Bed alarm TABS alarm Wheel chair alarm - Skin Breakdown Risk skin assessments - Aspiration Precaution Pt on peg tube feeding - Safety Fall risk assist with xfers/STS - O2 saturations monitor O2 levels - Stroke Monitor signs and symptoms of stroke ACTIVITIES OOB only with supervision QI SCORES: - Self-Care A. Eating 01-Dependent B. Oral hygiene 03-Partial/moderate assistance C. Toileting hygiene 02-Substantial/maximal assistance E. Shower/bathe self 02-Substantial/maximal assistance F. Upper body dressing 03-Partial/moderate assistance G. Lower body dressing 02-Substantial/maximal assistance H. Putting on/taking off footwear 02-Substantial/maximal assistance - Mobility A. Roll left and right 03-Partial/moderate assistance B. Sit to lying 03-Partial/moderate assistance C. Lying to sitting on side of bed 03-Partial/moderate assistance D. Sit to stand 03-Partial/moderate assistance E. Chair/mhg-[id number]-[id number] transfer 03-Partial/moderate assistance F. Toilet transfer 03-Partial/moderate assistance G. Car transfer 88-Not attempted due to medical condition or safety concerns I. Walk 10 feet 88-Not attempted due to medical condition or safety concerns J. Walk 50 feet with two turns 88-Not attempted due to medical condition or safety concerns K. Walk 150 feet 88-Not attempted due to medical condition or safety concerns L. Walking 10 feet on uneven surfaces 88-Not attempted due to medical condition or safety concerns M. 1 step (curb) 88-Not attempted due to medical condition or safety concerns N. 4 steps 88-Not attempted due to medical condition or safety concerns O. 12 steps 88-Not attempted due to medical condition or safety concerns P. Picking up object R. Wheel 50 feet with two turns 88-Not attempted due to medical condition or safety concerns S. Wheel 150 feet 88-Not attempted due to medical condition or safety concerns - Bladder and Bowel Bladder continence Bowel continence - Endurance Fair - Balance Fair - Safety Awareness Fair CURRENT [facility]. DEFICITS: Self-Care, Mobility, Endurance, Balance, and Safety Awareness MEDICATIONS: - Other See attached MAR (Medication Administration Record) ASSESSMENT: On 04/27/2021 Pt. presented to [facility] with sudden onset of right-side weakness.Pt. is a 76 yo white male.On 04/27/2021 he was admitted to [facility] with diagnosis Acute L MCA stroke.His impairment category is Stroke 01 - Right Body (Left Brain) (01.2).Pre-morbidly, Pt. was independent /mod-I in Safety Awareness, Locomotion, Social Cognition, Transfers Control, and Balance; and he had good Transfers Control, Sphincter Control, Self-Care, Communication, and Endurance.Currently, he has deficits of Locomotion, Safety Awareness, Social Cognition, Balance, Transfers Control, Sphincter Con trol, Self-Care, Communication, and Endurance.Pt. is now referred to [facility] for acute in-patient rehabilitation in order to maximize patient's functional independence in activ ities of daily living, strength, ROM, and mobility.- Rehab Goal Patient has realistic goal of being discharged at assistance level partial assist to independent to r eside at Home with Family/Relatives. interdisciplinary approach by acute IRF, pt. demonstrates great potential and motivation to get stronger, safer, and more independent to return to [facility]. Pt demonstrates a strong need for an intensive team: rehab doctor, nurse, child welfare social worker, and therapist to meet functional and medical goals. It is reasonable and necessary for the patient to come to acute IRF to safely dc. Pt is medically stable but in need of 24 hour nursing, doctor supervision, and oversight while receiving active and ongoing intensive (OT/PT/ST). The patient is reasonably expected to participate in 3 hours of therapy a day/15 hours a week. COVID-19 screening performed. Patient denies a new onset of fever, cough, difficulty breathing, sore throat, body aches and non-allergy nasal congestion in the past 24 hours. Patient denies travel outside of [place] in the past 14 days. Patient denies any contact with someone who has a confirmed diagnosis of or is under investigation for COVID-19 in the past 14 days. Patient has been tested negative for COVID- 19.REHAB PLAN: for Dementia, TBI, Stroke, or others - Physical Therapy Gait dysfunction - to improve, our physical therapists will perform initial evaluation of pt's status upon admission and devise an individualized program for Gait Training, and Wheel Chair mobility Inability to transfer - to improve, our physical therapists will perform initial evaluation of pt's s tatus upon admission and devise an individualized program for Bed mobility Need for home safety evaluation - to improve, our physical therapists will perform initial evaluation of pt's status upon admission and devise an individualized program for Home Evaluation Need in caregiver upon discharge - to improve, our physical therapists will perform initial evaluatio n of pt's status upon admission and devise an individualized program for Caregiver Training New precaution - to improve, our physical therapists will perform initial evaluation of pt's status u fredy admission and devise an individualized program for Patient precaution education Edema - to improve, our physical therapists will perform initial evaluation of pt's status upon admi ssion and devise an individualized program for Elevation Training, and Lymphedema Therapy Poor balance - to improve, our physical therapists will perform initial evaluation of pt's status upo n admission and devise an individualized program for Balance Training Poor endurance - to improve, our physical therapists will perform initial evaluation of pt's status u fredy admission and devise an individualized program for Endurance Training Weakness - to improve, our physical therapists will perform initial evaluation of pt's status upon ad mission and devise an individualized program for Aquatic Therapy, Neuromuscular Reeducation, and Stre ngthening Achieving independence - to improve, our physical therapists will perform initial evaluation of pt's status upon admission and devise an individualized program for Community Reintegration Activities - Occupational Therapy ADL deficits - to improve, our occupation therapists will perform initial evaluation of pt's status u fredy admission and devise an individualized program for Bathing, Bed mobility, Community Reintegration , Cooking, Dressing, Eating, Fine Motor Skills, Grooming, Homemaking, Kitchen Mobility, Laundry, Marisabel ent Education, Safety Awareness, Splinting - Positioning, Transfers(Toilet, Tub, Shower), and Wheel C hair Management Cognitive deficits - to improve, our occupation therapists will perform initial evaluation of pt's st atus upon admission and devise an individualized program for Cognition - orientation Need for patient care representative - to improve, our occupation therapists will perform initial evaluation of pt's s tatus upon admission and devise an individualized program for Caregiver Training Weakness - to improve, our occupation therapists will perform initial evaluation of pt's status upon admission and devise an individualized program for Aquatic Therapy, Balance, Endurance, UE ROM, and U E strengthening MEDICAL PLAN: - Diet Type Start NPO - Diet - Liquid Texture Start Regular - Tube Feed Start N/A - Bladder care per protocol - Skin Breakdown Risk skin assessments - Aspiration Precaution Pt on peg tube feeding - Weight Bearing Precaution WBAT all extremities - Fall Precaution Bed alarm TABS alarm Wheel chair alarm - Skin care per protocol - Other See attached MAR (Medication Administration Record) - Diet - Solid Texture Regular - Shower shower - Safety Fall risk assist with xfers/STS - O2 saturations monitor O2 levels - Stroke Monitor signs and symptoms of stroke DISCHARGE PLAN: - Estimated Length of Stay (days) 17. - Consensus on plan Discharge plan has been discussed with primary caregiver. Patient/Family is in agreement with the radha n. Primary caregiver is in agreement with the plan. - Patient/Family Goals Return home independently. - Planned Living Setting Upon Discharge Home, to live with Family/Relatives. Transitional Living. SIGNATURE PANEL: (SHOE TURNER)
--- NOTE | 2021-05-08 17:14 | PAPE ---
POST ADMISSION PHYSICIAN EVALUATION PATIENT: [facility] MR# [id number] REFERRING DOCTOR Dr. Jemma Nevarez EVALUATION DATE AND TIME 05/08/2021 17:12 (COUNTERINTELLIGENCE AGENT) NAME LUCIA BACON DATE OF 1945 AGE 76 PHONE N# [id number] GENDER male EVALUATING PHYSICIAN Dr. Salvador Hager M.D. ADMISSION DIAGNOSIS: Acute L MCA stroke ONSET DATE 04/27/2021 POST-ADMISSION FUNCTIONAL/MEDICAL STATUS: - Bladder Same accident frequency: 7-Ind - No accidents in the past 7 days - Bowel Same accident frequency: 7-Ind - No accidents in the past 7 days - Walking Same score based on distance walked: 0(N/A) - Wheelchair Same score based on distance traveled: 0(N/A) STATUS CHANGE EVALUATION: No change in Functional or Medical Status is identified compared with Pre-Admission screening. PATIENT NEEDS CLOSE MEDICAL SUPERVISION BY A REHABILITATION PHYSICIAN FOR: Coordination of Treatment Team Medical and Co-Morbidity Management Pain Management Post-Op follow up medication management PATIENT REQUIRES 24X7 REHAB NURSING FOR MEDICAL AND FUNCTIONAL MGT. OF THE FOLLOWING DEFICITS: Disease Management Medication Management Providing Safe Environment ADL's Ambulation Communication Pain Management Skin Integrity Swallowing Transfers PATIENT REQUIRES INTENSIVE, COORDINATED INTERDISCIPLINARY APPROACH TO REHAB: Arranging Home Equipment/Services Discharge Planning Family Intervention/Training Gas Or Water Meter Installer/Case Management LIST OF IDENTIFIED AND POTENTIAL PROBLEMS: Alteration in air exchange Alteration in leisure activities Bladder, Incontinence Bowel, Incontinence Falls, Actual or Potential Infection, Actual or Potential Mobility Impaired Pain, Alteration in Comfort Self Care Deficit Skin Integrity, Actual or Potential Urinary Tract Infection (UTI), Actual or Potential RISK FOR COMPLICATIONS - Aspiration Clinical staff will monitor for coughing, drooling, congestion. Nursing will monitor patient swallowi ng during meals. Speech will evaluate swallowing and dysphagia. Swallowing difficulties per therapy n otes. Monitor for signs of aspiration. ANIMAL CARE SPECIALIST as ordered by . patient on peg tube 05/03/2021. - UTI Monitor for frequency, burning, discomfort, or incontinence. - CVA Monitor signs and symptoms of stroke. - PNA Clinical staff to encourage OOB movements/tasks/activities. Clinical staff to encourage breathing exe rcises. - Skin Breakdown Nursing will assess skin daily using assessment tool and will place on Skin Breakdown Precautions as Indicated per protocol. - Pain Clinical staff will assess patient's pain level every shift per protocol to monitor for pain manageme nt effectiveness. Educate patient on pain management strategies. Medications will be given and the pa in level reassessed. Clinical Staff may employ other methods such as: massage, distraction, decrease stimulus, etc. as needed. - Falls Educated pt on fall prevention strategies to reduce/eliminate fall risk. Patient will be evaluated fo r Fall Precautions and will be placed on Fall Precautions as indicated per protocol. - Impaired Safety Educate patient on safety awareness strategies. Educate patient on safety hazards. - Bleeding Monitor lab values. - Limb Ischemia Assess circulation each shift. Report any changes to MD. - Sespsis Monitor lab values. - Respiratory Monitor O2 sats. INTERVENTIONS - Dysarthria/Dysphagia Peg tube placed 05/03/2021 per pt's chart. - Respiration Supplemental O2 as needed to maintain O2 sats above 88% per MD progress note 05/03/2021. - CV BP control gaol SBP < 140, on lisinopril 5mg po qday, titrate oral agents - per MD progress note 08/2021. - Hyperlipidemia LDL 19 at goal <70, low dose statin for pleiotropic effect - per MD progress note 05/03/2021. - HF TTE shows 30-35% and diffuse hypokinesis; no change from previous, Metoprolol 25 mg BID, lisinopril 5 mg - per MD progress note. - Renal Avoid Nephrotoxic agents - per MD progress note 05/03/2021. - HEME Anemia, monitor, transfuse for Hb <7 - per MD progress note 05/03/2021. - ID, PNA, possible aspiration, MRSA+ s/p ceftriaxone, vancomycin, flagyl started 04/28, afebrile, no leukocytosis since then --> de-escala te to po clindamycin to complete 7 days (started 05/02) - per MD progress note 05/03/2021. - Prophylaxis DVT: SQH, Bowel regimen: senna; last BM 05/01 - per progress note 05/03/2021. PATIENT COULD BE AT RISK FOR COMPLICATIONS FROM ADVERSE MEDICAL CONDITIONS DUE TO HIS/HER COMORBIDITI ES AND THE RIGORS OF THE INTENSIVE REHABILLITATION PROGRAM. METHODS OR INTERVENTIONS TO AVOID COMPLIC ATIONS INCLUDE: - Bleeding Stroke patients assessed for lethargy or change in status. - Infection Clinical staff to assess and manage the signs and symptoms of infection including fever, redness, war mth, etc. - Urinary Tract Infection - Aspiration Clinical staff will assess and manage coughing, drooling, congestion. - Falls Patient will be evaluated for Fall Precautions and will be placed on Fall Precautions as indicated pe r protocol. - Skin Breakdown Nursing will assess skin daily using assessment tool and will place on Skin Breakdown Precautions as indicated per protocol. - Pain Clinical staff may employ non-medication methods such as massage, distraction, decrease stimulus, etc . as needed. Clinical staff will assess patient's pain level every shift per protocol to assess and e nsure pain management effectiveness. Medications will be given and the pain level re-assessed. PRELIMINARY PLAN OF CARE: - Physical Therapy Patient needs Physical Therapy for a daily minimum of 1.5 hours at least 5 out of 7 days, to improve: Mobility, Strengthening, Transfers, Stretching, ROM, Endurance, Ability to manage stairs, Gait, and Balance. - Speech Therapy Patient needs Speech Therapy for a daily minimum of 0.5 hours at least 5 out of 7 days, to improve: S wallowing, Cognition, Language Skills, and Compensatory Strategies. - Rehabilitation Nursing Patient requires 24x7 Rehabilitation Nursing for: Pain Issues, Identifying and preventing risk factor s, Monitoring and reporting current medical conditions, Assisting with ambulation and transfer, Ernesto ting with all ADL-s, Teaching patients about disease process and medications, Family teaching, Provid ing safe environment, Bowel and Bladder Issues, Skin Integrity, and Medication Management. Patient needs Gas Or Water Meter Installer and/or Case Management for: Discharge Planning, Arranging Home Equipmen t or Services, and Family Interventions. - Dietary and Nutrition Services Patient needs Dietary and Nutrition Services for: Adequate Nutrition, Nutritional Supplements, and Nu tritional Education. - Occupational Therapy Patient needs Occupational Therapy for a daily minimum of 1.5 hours at least 5 out of 7 days, to impr ove Activities of Daily Living, including: Eating, Grooming, Bathing, Dressing, Toileting, Toilet Tra nsfers, Community Reintegration, Higher functional activities, Adaptive Equipment, Splinting, Househo ld Tasks, and Other activities as determined. QI SCORES: - Self-Care A. Eating 01-Dependent B. Oral hygiene 03-Partial/moderate assistance C. Toileting hygiene 02-Substantial/maximal assistance E. Shower/bathe self 02-Substantial/maximal assistance F. Upper body dressing 03-Partial/moderate assistance G. Lower body dressing 02-Substantial/maximal assistance H. Putting on/taking off footwear 02-Substantial/maximal assistance - Mobility A. Roll left and right 03-Partial/moderate assistance B. Sit to lying 03-Partial/moderate assistance C. Lying to sitting on side of bed 03-Partial/moderate assistance D. Sit to stand 03-Partial/moderate assistance E. Chair/[id number]-vi-[id number] transfer 03-Partial/moderate assistance F. Toilet transfer 03-Partial/moderate assistance G. Car transfer 88-Not attempted due to medical condition or safety concerns I. Walk 10 feet 88-Not attempted due to medical condition or safety concerns J. Walk 50 feet with two turns 88-Not attempted due to medical condition or safety concerns K. Walk 150 feet 88-Not attempted due to medical condition or safety concerns L. Walking 10 feet on uneven surfaces 88-Not attempted due to medical condition or safety concerns M. 1 step (curb) 88-Not attempted due to medical condition or safety concerns N. 4 steps 88-Not attempted due to medical condition or safety concerns O. 12 steps 88-Not attempted due to medical condition or safety concerns P. Picking up object R. Wheel 50 feet with two turns 88-Not attempted due to medical condition or safety concerns S. Wheel 150 feet 88-Not attempted due to medical condition or safety concerns - Bladder and Bowel Bladder continence Bowel continence - Endurance Fair - Balance Fair - Safety Awareness Fair POTENTIAL FUNCTIONAL GOALS FOR PATIENT TO ACHIEVE BY DISCHARGE: - Safety Precaution Patient will remain free from falls or injury at time of discharge. - Bed Mobility Patient will perform bed mobility at 4-Bradley level of assistance. - Transfers Patient will complete transfers from bed to chair at 4-Bradley level of assistance. - Mobility Patient will ambulate 150 ft with 4-Bradley level of assistance with RW. PATIENT REHAB POTENTIAL Glenis BACON is able and expected to receive 3 hours of individualized therapy daily on at least 5 of e very 7 days Glenis MCGUIREs prognosis for significant practical improvement within a reasonable period of time appea rs Good Expected level of measurable improvement will be of a practical value to Glenis BACON's functional capa city or adaptations to impairments Has a viable Discharge Plan Medically appropriate; condition is sufficiently stable to participate in intensive rehab program DISCHARGE PLAN: - Estimated Length of Stay (days) 17. - Consensus on plan Discharge plan has been discussed with primary caregiver. Patient/Family is in agreement with the radha n. Primary caregiver is in agreement with the plan. - Patient/Family Goals Return home independently. - Planned Living Setting Upon Discharge Home, to live with Family/Relatives. Transitional Living. CONCLUSION ON REHABILITATION NECESSITY: I have evaluated patient's pre-admission functional status and, comparing it to the patient's post-ad mission functional status now, I conclude that the pre-admission assessment was accurate. Patient's c ondition on admission supports the medical necessity of admission to IRF. It is safe to proceed with patient's therapy program. SIGNATURE PANEL: (COUNTERINTELLIGENCE AGENT)
[2021-05-08] MEDS: MELATONIN 3 MG TABLET PO SCH (19:58)
[2021-05-08] MEDS: ROSUVASTATIN 10 MG TAB PO SCH (19:58)
[2021-05-08] MEDS: JEVITY 1.5 CAL LIQUID 1,000 ML BOT RTH SCH (22:35)
[2021-05-09] MEDS: PIPER TAZO 3.375 GM in NA CHLORIDE 0.9% 100 ML IV SCH ×2 (00:22→10:42)
[2021-05-09] MEDS: METOPROLOL TAR 25 MG TAB PO SCH ×2 (05:06→17:09)
[2021-05-09] MEDS ORDERED: VANCOMYCIN 1 GM in NA CHLORIDE 0.9% 250 ML IVPB SCH (08:00)
[2021-05-09] MEDS: lisinopriL 10 MG TAB PO SCH (08:00)
[2021-05-09] MEDS: APIXABAN 5 MG TABLET PO SCH ×2 (08:20→20:36)
[2021-05-09] MEDS: FAMOTIDINE 20 MG TAB PO SCH ×2 (08:20→20:37)
[2021-05-09] MEDS: NICOTINE 7 MG/PAT TD SCH (08:20)
[2021-05-09] MEDS: THIAMINE HCL 100 MG TABLET PO SCH (08:21)
[2021-05-09] MEDS: MULTIVITAMINS 5 ML ORAL SYR FT SCH (08:23)
--- NOTE | 2021-05-09 14:05 | RAD REPORT ---
EXAM DESCRIPTION: RAD - Chest Single View - 05/09/2021 1:53 pm CLINICAL HISTORY: hx of pnuemonia from other facility COMPARISON: June 2019 TECHNIQUE: AP portable chest image was obtained 05/09/2021 1:53 pm . FINDINGS: Patient has a baseline fibrotic lung pattern that is not clearly different in the right jacob ng field or upper left lung field. Patchy interstitial and alveolar opacities are present in the lowe r left lung field consistent with a pneumonia. History indicates pneumonia diagnosed at an outside fa cility. No recent imaging is available to determine if any left base infiltrate may be stable, progre ssive or resolving. Failure and volume overload are not suspected. Heart and vasculature are normal. No measurable pleura l effusion and no pneumothorax. No acute bony abnormality seen. No acute aortic findings. Atheroscler otic calcifications are present. Bowel interposition is seen between the liver and the right hemidiaphragm is a normal anatomic varian t. IMPRESSION: Probable left lower lung field pneumonia. History indicates recent diagnosis of pneumonia at an outside facility. No recent comparison availabl e to determine progression, resolution or stability of pneumonia.
--- NOTE | 2021-05-09 18:36 | R.PN ---
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 Pt denied any Shortness of Breath. His IV solumedrol, Vancomycin and piperacillin/tazobactam were discontinued. Chest x-ray shows probab le left lower lung pneumonia. Normal WBC of 10.4 with neutrophis 80.4. May resume antibiotics dependi ng on clinical picture. Na 135, prealbumin 19.8, glucose 120. UA is normal. Covid-19 test is negative . He ambulated 430' with contact guard assistance using a rolling walker. He used 2L of )2 via nasal ca nnula. VITAL SIGNS Temperature: 99 F SBP/DBP: 117/65 Pulse: 83 Resp: 18 MEDICATION ALLERGIES: No Known Drug Allergies (NKDA) ENVIRONMENTAL ALLERGIES: None Known - Substance Allergies None Known - Other Allergies None Known NURSING: - Shower allowing shower - Bladder care per protocol - Skin care per protocol PRECAUTIONS: - Weight Bearing Precaution WBAT all extremities per pt's chart - Fall Precaution Bed alarm TABS alarm Wheel chair alarm - Skin Breakdown Risk skin assessments - Aspiration Precaution Pt on peg tube feeding - Safety Fall risk assist with xfers/STS - O2 saturations monitor O2 levels - Stroke Monitor signs and symptoms of stroke ACTIVITIES OOB only with supervision THERAPIES: - Dietary and Nutrition Adequate Nutrition. Nutritional Education. Nutritional Supplements. - Occupational Therapy Cognitive Retraining. Evaluate and Treat. ADL Training. Adaptive Equipment. Eating. Household Tasks. Patient/Family Education. Safety Awareness. Transfer Training. UE ROM. UE Strengthening. Visual Perce ptual Training. - Speech Therapy Cognitive Training. Expressive Language Skills. Memory Strategies. Receptive Language Skills. Speech Intelligibility Training. - Physical Therapy Balance Training. Evaluate and Treat. Gait Training. LE ROM. LE Strengthening. Medical Equipment Asse ssment and Evaluation. Mobility Training. Patient/Family Education. Safety Awareness. Transfer Traini ng. PHYSICAL EXAM - Gen Alert and awake Lying in bed No apparent distress Oriented to: person, time, and place - Skin No breakdown No abnormalities - Eyes No abnormalities - ENMT No abnormalities - Neck No abnormalities - CVS RRR - Chest Mildly decreased breath sounds bilaterally. - Abd Soft - GI + bowel sounds Deferred - No abnormalities - Ext Mild right lower extremity edema. - MSK 4+/5 weakness in left upper and lower extremity - Neuro 4/5 strength right upper and lower extremities. - Psych No abnormalities - OTHER Ambulated 250' with contact guard assistance using a rolling walker. ASSESSMENT: On 04/27/2021 Pt. presented to [facility] with sudden onset of right-side weakness.Pt. is a 76 yo white male.On 04/27/2021 he was admitted to [facility] with diagnosis Acute L MCA stroke.His impairment category is Stroke 01 - Right Body (Left Brain) (01.2).Pre-morbidly, Pt. was independent /mod-I in Safety Awareness, Locomotion, Social Cognition, Transfers Control, and Balance; and he had good Transfers Control, Sphincter Control, Self-Care, Communication, and Endurance.Currently, he has deficits of Locomotion, Safety Awareness, Social Cognition, Balance, Transfers Control, Sphincter Con trol, Self-Care, Communication, and Endurance.Pt. is now referred to [facility] for acute in-patient rehabilitation in order to maximize patient's functional independence in activ ities of daily living, strength, ROM, and mobility.- Rehab Goal Patient has realistic goal of being discharged at assistance level partial assist to independent to r eside at Home with Family/Relatives. MDM/PLAN: - Physical Therapy Gait dysfunction - to improve, our physical therapists will perform initial evaluation of pt's statu s upon admission and devise an individualized program for Gait Training, and Wheel Chair mobility Inability to transfer - to improve, our physical therapists will perform initial evaluation of pt's status upon admission and devise an individualized program for Bed mobility Need for home safety evaluation - to improve, our physical therapists will perform initial evaluatio n of pt's status upon admission and devise an individualized program for Home Evaluation Need in caregiver upon discharge - to improve, our physical therapists will perform initial evaluati on of pt's status upon admission and devise an individualized program for Caregiver Training New precaution - to improve, our physical therapists will perform initial evaluation of pt's status upon admission and devise an individualized program for Patient precaution education Edema - to improve, our physical therapists will perform initial evaluation of pt's status upon admis jose and devise an individualized program for Elevation Training, and Lymphedema Therapy Poor balance - to improve, our physical therapists will perform initial evaluation of pt's status up on admission and devise an individualized program for Balance Training Poor endurance - to improve, our physical therapists will perform initial evaluation of pt's status upon admission and devise an individualized program for Endurance Training Weakness - to improve, our physical therapists will perform initial evaluation of pt's status upon a dmission and devise an individualized program for Aquatic Therapy, Neuromuscular Reeducation, and Str engthening Achieving independence - to improve, our physical therapists will perform initial evaluation of pt's status upon admission and devise an individualized program for Community Reintegration Activities - Occupational Therapy ADL deficits - to improve, our occupation therapists will perform initial evaluation of pt's status upon admission and devise an individualized program for Bathing, Bed mobility, Community Reintegratio n, Cooking, Dressing, Eating, Fine Motor Skills, Grooming, Homemaking, Kitchen Mobility, Laundry, Pat ient Education, Safety Awareness, Splinting - Positioning, Transfers(Toilet, Tub, Shower), and Wheel Chair Management Cognitive deficits - to improve, our occupation therapists will perform initial evaluation of pt's s tatus upon admission and devise an individualized program for Cognition - orientation Need for point of care technician - to improve, our occupation therapists will perform initial evaluation of pt's status upon admission and devise an individualized program for Caregiver Training Weakness - to improve, our occupation therapists will perform initial evaluation of pt's status upon admission and devise an individualized program for Aquatic Therapy, Balance, Endurance, UE ROM, and UE strengthening - Other See attached MAR (Medication Administration Record) - Diet Type Continue NPO - Diet - Liquid Texture Continue Regular - Tube Feed Continue N/A - Bladder care per protocol - Skin Breakdown Risk skin assessments - Aspiration Precaution Pt on peg tube feeding - Weight Bearing Precaution WBAT all extremities - Fall Precaution Bed alarm TABS alarm Wheel chair alarm - Skin care per protocol - Diet - Solid Texture Continue Regular - Shower allowing shower - Safety Fall risk assist with xfers/STS - O2 saturations monitor O2 levels - Stroke Monitor signs and symptoms of stroke for Dementia, TBI, Stroke, or others FUNCTIONAL STATUS: UPDATED AT WEEKLY TEAM CONFERENCE - Bladder Same accident frequency: 7-Ind - No accidents in the past 7 days - Bowel Same accident frequency: 7-Ind - No accidents in the past 7 days - Walking Same score based on distance walked: 0(N/A) - Wheelchair Same score based on distance traveled: 0(N/A) FUNCTIONAL STATUS: - Self-Care A. Eating Bradley B. Grooming sup C. Bathing modA D. Dressing - Upper Bradley E. Dressing - Lower modA F. Toileting modA - Sphincter Control G. Bladder control sup H. Bowel control sup - Transfers Control I. Bed/Chair/Wheelchair Bradley J. Toilet Bradley K. Tub/Shower modA - Locomotion L. Walk/Wheelchair (B) Bradley M. Stairs maxA - Communication N. Comprehension (B) Bradley O. Expression (B) Bradley - Social Cognition P. Social Interaction sup Q. Problem Solving sup R. Memory sup - Endurance Fair - Balance Fair - Safety Awareness Fair QI SCORES: - Self-Care A. Eating 01-Dependent B. Oral hygiene 03-Partial/moderate assistance C. Toileting hygiene 02-Substantial/maximal assistance E. Shower/bathe self 02-Substantial/maximal assistance F. Upper body dressing 03-Partial/moderate assistance G. Lower body dressing 02-Substantial/maximal assistance H. Putting on/taking off footwear 02-Substantial/maximal assistance - Mobility A. Roll left and right 03-Partial/moderate assistance B. Sit to lying 03-Partial/moderate assistance C. Lying to sitting on side of bed 03-Partial/moderate assistance D. Sit to stand 03-Partial/moderate assistance E. Chair/[id number] transfer 03-Partial/moderate assistance F. Toilet transfer 03-Partial/moderate assistance G. Car transfer 88-Not attempted due to medical condition or safety concerns I. Walk 10 feet 88-Not attempted due to medical condition or safety concerns J. Walk 50 feet with two turns 88-Not attempted due to medical condition or safety concerns K. Walk 150 feet 88-Not attempted due to medical condition or safety concerns L. Walking 10 feet on uneven surfaces 88-Not attempted due to medical condition or safety concerns M. 1 step (curb) 88-Not attempted due to medical condition or safety concerns N. 4 steps 88-Not attempted due to medical condition or safety concerns O. 12 steps 88-Not attempted due to medical condition or safety concerns P. Picking up object R. Wheel 50 feet with two turns 88-Not attempted due to medical condition or safety concerns S. Wheel 150 feet 88-Not attempted due to medical condition or safety concerns - Bladder and Bowel Bladder continence Bowel continence - Endurance Fair - Balance Fair - Safety Awareness Fair CURRENT [facility]. 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
[2021-05-09] MEDS: ROSUVASTATIN 10 MG TAB PO SCH (20:37)
[2021-05-09] MEDS: MELATONIN 3 MG TABLET PO SCH (20:38)
[2021-05-10] MEDS: METOPROLOL TAR 25 MG TAB PO SCH ×2 (05:06→17:21)
[2021-05-10] MEDS: lisinopriL 10 MG TAB PO SCH (08:00)
[2021-05-10] MEDS: FAMOTIDINE 20 MG TAB PO SCH ×2 (08:56→19:28)
[2021-05-10] MEDS: NICOTINE 7 MG/PAT TD SCH (08:57)
[2021-05-10] MEDS: APIXABAN 5 MG TABLET PO SCH ×2 (08:57→19:28)
[2021-05-10] MEDS: THIAMINE HCL 100 MG TABLET PO SCH (08:57)
[2021-05-10] MEDS: MULTIVITAMINS 5 ML ORAL SYR FT SCH (08:58)
--- NOTE | 2021-05-10 17:47 | R.PN ---
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 Pt denied any Shortness of Breath. His IV solumedrol, Vancomycin and piperacillin/tazobactam were discontinued. Chest x-ray shows probab le left lower lung pneumonia. Normal WBC of 10.4 with neutrophis 80.4. May resume antibiotics dependi ng on clinical picture. Na 135, prealbumin 19.8, glucose 120. UA is normal. Covid-19 test is negative 05/10/21. Therapeutic exercised done with supervision. VITAL SIGNS Temperature: 96.7 F SBP/DBP: 135/83 Pulse: 65 Resp: 18 MEDICATION ALLERGIES: No Known Drug Allergies (NKDA) ENVIRONMENTAL ALLERGIES: None Known - Substance Allergies None Known - Other Allergies None Known NURSING: - Shower allowing shower - Bladder care per protocol - Skin care per protocol PRECAUTIONS: - Weight Bearing Precaution WBAT all extremities per pt's chart - Fall Precaution Bed alarm TABS alarm Wheel chair alarm - Skin Breakdown Risk skin assessments - Aspiration Precaution Pt on peg tube feeding - Safety Fall risk assist with xfers/STS - O2 saturations monitor O2 levels - Stroke Monitor signs and symptoms of stroke ACTIVITIES OOB only with supervision THERAPIES: - Dietary and Nutrition Adequate Nutrition. Nutritional Education. Nutritional Supplements. - Occupational Therapy Cognitive Retraining. Evaluate and Treat. ADL Training. Adaptive Equipment. Eating. Household Tasks. Patient/Family Education. Safety Awareness. Transfer Training. UE ROM. UE Strengthening. Visual Perce ptual Training. - Speech Therapy Cognitive Training. Expressive Language Skills. Memory Strategies. Receptive Language Skills. Speech Intelligibility Training. - Physical Therapy Balance Training. Evaluate and Treat. Gait Training. LE ROM. LE Strengthening. Medical Equipment Asse ssment and Evaluation. Mobility Training. Patient/Family Education. Safety Awareness. Transfer Traini ng. PHYSICAL EXAM - Gen Alert and awake Lying in bed No apparent distress Oriented to: person, time, and place - Skin No breakdown No abnormalities - Eyes No abnormalities - ENMT No abnormalities - Neck No abnormalities - CVS RRR - Chest Mildly decreased breath sounds bilaterally. - Abd Soft - GI + bowel sounds Deferred - No abnormalities - Ext Mild right lower extremity edema. - MSK 4+/5 weakness in left upper and lower extremity - Neuro 4/5 strength right upper and lower extremities. - Psych No abnormalities - OTHER Ambulated 250' with contact guard assistance using a rolling walker. ASSESSMENT: On 04/27/2021 Pt. presented to [facility] with sudden onset of right-side weakness.Pt. is a 76 yo white male.On 04/27/2021 he was admitted to [facility] with diagnosis Acute L MCA stroke.His impairment category is Stroke 01 - Right Body (Left Brain) (01.2).Pre-morbidly, Pt. was independent /mod-I in Safety Awareness, Locomotion, Social Cognition, Transfers Control, and Balance; and he had good Transfers Control, Sphincter Control, Self-Care, Communication, and Endurance.Currently, he has deficits of Locomotion, Safety Awareness, Social Cognition, Balance, Transfers Control, Sphincter Con trol, Self-Care, Communication, and Endurance.Pt. is now referred to [facility] for acute in-patient rehabilitation in order to maximize patient's functional independence in activ ities of daily living, strength, ROM, and mobility.- Rehab Goal Patient has realistic goal of being discharged at assistance level partial assist to independent to r eside at Home with Family/Relatives. MDM/PLAN: - Physical Therapy Gait dysfunction - to improve, our physical therapists will perform initial evaluation of pt's statu s upon admission and devise an individualized program for Gait Training, and Wheel Chair mobility Inability to transfer - to improve, our physical therapists will perform initial evaluation of pt's status upon admission and devise an individualized program for Bed mobility Need for home safety evaluation - to improve, our physical therapists will perform initial evaluatio n of pt's status upon admission and devise an individualized program for Home Evaluation Need in caregiver upon discharge - to improve, our physical therapists will perform initial evaluati on of pt's status upon admission and devise an individualized program for Caregiver Training New precaution - to improve, our physical therapists will perform initial evaluation of pt's status upon admission and devise an individualized program for Patient precaution education Edema - to improve, our physical therapists will perform initial evaluation of pt's status upon admi ssion and devise an individualized program for Elevation Training, and Lymphedema Therapy Poor balance - to improve, our physical therapists will perform initial evaluation of pt's status up on admission and devise an individualized program for Balance Training Poor endurance - to improve, our physical therapists will perform initial evaluation of pt's status upon admission and devise an individualized program for Endurance Training Weakness - to improve, our physical therapists will perform initial evaluation of pt's status upon a dmission and devise an individualized program for Aquatic Therapy, Neuromuscular Reeducation, and Str engthening Achieving independence - to improve, our physical therapists will perform initial evaluation of pt's status upon admission and devise an individualized program for Community Reintegration Activities - Occupational Therapy ADL deficits - to improve, our occupation therapists will perform initial evaluation of pt's status upon admission and devise an individualized program for Bathing, Bed mobility, Community Reintegratio n, Cooking, Dressing, Eating, Fine Motor Skills, Grooming, Homemaking, Kitchen Mobility, Laundry, Pat ient Education, Safety Awareness, Splinting - Positioning, Transfers(Toilet, Tub, Shower), and Wheel Chair Management Cognitive deficits - to improve, our occupation therapists will perform initial evaluation of pt's s tatus upon admission and devise an individualized program for Cognition - orientation Need for director long term care - to improve, our occupation therapists will perform initial evaluation of pt's status upon admission and devise an individualized program for Caregiver Training Weakness - to improve, our occupation therapists will perform initial evaluation of pt's status upon admission and devise an individualized program for Aquatic Therapy, Balance, Endurance, UE ROM, and UE strengthening - Other See attached MAR (Medication Administration Record) - Diet Type Continue NPO - Diet - Liquid Texture Continue Regular - Tube Feed Continue N/A - Bladder care per protocol - Skin Breakdown Risk skin assessments - Aspiration Precaution Pt on peg tube feeding - Weight Bearing Precaution WBAT all extremities - Fall Precaution Bed alarm TABS alarm Wheel chair alarm - Skin care per protocol - Diet - Solid Texture Continue Regular - Shower allowing shower - Safety Fall risk assist with xfers/STS - O2 saturations monitor O2 levels - Stroke Monitor signs and symptoms of stroke for Dementia, TBI, Stroke, or others FUNCTIONAL STATUS: UPDATED AT WEEKLY TEAM CONFERENCE - Bladder Same accident frequency: 7-Ind - No accidents in the past 7 days - Bowel Same accident frequency: 7-Ind - No accidents in the past 7 days - Walking Same score based on distance walked: 0(N/A) - Wheelchair Same score based on distance traveled: 0(N/A) FUNCTIONAL STATUS: - Self-Care A. Eating Bradley B. Grooming sup C. Bathing modA D. Dressing - Upper Bradley E. Dressing - Lower modA F. Toileting modA - Sphincter Control G. Bladder control sup H. Bowel control sup - Transfers Control I. Bed/Chair/Wheelchair Bradley J. Toilet Bradley K. Tub/Shower modA - Locomotion L. Walk/Wheelchair (B) Bradley M. Stairs maxA - Communication N. Comprehension (B) Bradley O. Expression (B) Bradley - Social Cognition P. Social Interaction sup Q. Problem Solving sup R. Memory sup - Endurance Fair - Balance Fair - Safety Awareness Fair QI SCORES: - Self-Care A. Eating 01-Dependent B. Oral hygiene 03-Partial/moderate assistance C. Toileting hygiene 02-Substantial/maximal assistance E. Shower/bathe self 02-Substantial/maximal assistance F. Upper body dressing 03-Partial/moderate assistance G. Lower body dressing 02-Substantial/maximal assistance H. Putting on/taking off footwear 02-Substantial/maximal assistance - Mobility A. Roll left and right 03-Partial/moderate assistance B. Sit to lying 03-Partial/moderate assistance C. Lying to sitting on side of bed 03-Partial/moderate assistance D. Sit to stand 03-Partial/moderate assistance E. Chair/[id number] transfer 03-Partial/moderate assistance F. Toilet transfer 03-Partial/moderate assistance G. Car transfer 88-Not attempted due to medical condition or safety concerns I. Walk 10 feet 88-Not attempted due to medical condition or safety concerns J. Walk 50 feet with two turns 88-Not attempted due to medical condition or safety concerns K. Walk 150 feet 88-Not attempted due to medical condition or safety concerns L. Walking 10 feet on uneven surfaces 88-Not attempted due to medical condition or safety concerns M. 1 step (curb) 88-Not attempted due to medical condition or safety concerns N. 4 steps 88-Not attempted due to medical condition or safety concerns O. 12 steps 88-Not attempted due to medical condition or safety concerns P. Picking up object R. Wheel 50 feet with two turns 88-Not attempted due to medical condition or safety concerns S. Wheel 150 feet 88-Not attempted due to medical condition or safety concerns - Bladder and Bowel Bladder continence Bowel continence - Endurance Fair - Balance Fair - Safety Awareness Fair CURRENT [facility]. 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
[2021-05-10] MEDS: ROSUVASTATIN 10 MG TAB PO SCH (19:28)
[2021-05-10] MEDS: MELATONIN 3 MG TABLET PO SCH (19:29)
[2021-05-10] MEDS: JEVITY 1.5 CAL LIQUID 1,000 ML BOT RTH SCH ×2 (21:38)
[2021-05-11] MEDS: METOPROLOL TAR 25 MG TAB PO SCH ×2 (05:12→16:59)
[2021-05-11 07:03] LABS: Absolute Lymphocytes (CBC) 0.8 K/uL (0.7-4.9); Hematocrit 37.2 % (39.6-49.0); Lymphocytes % 6.8 % (15.3-44.8); MPV 7.5 fL (7.6-11.3); RBC Red Blood Cell Count 4.06 M/uL (4.33-5.43)
[2021-05-11 07:26] LABS: Albumin 2.2 g/dL (3.4-5.0); Magnesium 2.6 mg/dL (1.8-2.4); Potassium 4.6 mmol/L (3.5-5.1); Prealbumin 17.9 mg/dL (20-40)
[2021-05-11] MEDS: lisinopriL 10 MG TAB PO SCH (08:00)
[2021-05-11] MEDS: THIAMINE HCL 100 MG TABLET PO SCH (08:00)
[2021-05-11] MEDS: MULTIVITAMINS 5 ML ORAL SYR FT SCH (09:40)
[2021-05-11] MEDS: NICOTINE 7 MG/PAT TD SCH (09:40)
[2021-05-11] MEDS: APIXABAN 5 MG TABLET PO SCH ×2 (09:41→20:49)
[2021-05-11] MEDS: FAMOTIDINE 20 MG TAB PO SCH ×2 (09:42→20:50)
[2021-05-11] MEDS ORDERED: levoFLOXacin 750 MG TAB PO ONE (14:45)
[2021-05-11] MEDS: ROSUVASTATIN 10 MG TAB PO SCH (20:28)
[2021-05-11] MEDS: JEVITY 1.5 CAL LIQUID 1,000 ML BOT RTH SCH (20:48)
[2021-05-11] MEDS: ENSURE HIGH PROTEIN 237 ML CAN PO SCH (20:49)
[2021-05-11] MEDS: MELATONIN 3 MG TABLET PO SCH (20:49)
[2021-05-12] MEDS: METOPROLOL TAR 25 MG TAB PO SCH ×2 (05:03→17:01)
[2021-05-12 06:12] LABS: Absolute Lymphocytes (CBC) 0.7 K/uL (0.7-4.9); Hematocrit 34.9 % (39.6-49.0); MPV 7.3 fL (7.6-11.3); RBC Red Blood Cell Count 3.83 M/uL (4.33-5.43)
[2021-05-12 06:31] LABS: Potassium 5.1 mmol/L (3.5-5.1)
--- NOTE | 2021-05-12 07:34 | RAD REPORT ---
EXAM DESCRIPTION: RAD - Chest Single View - 05/12/2021 6:24 am CLINICAL HISTORY: comparison LLL pneumonia COMPARISON: Chest Single View dated 05/09/2021; Chest Pa And Lat (2 Views) dated 06/29/2019; CHEST PA A ND LAT 2 VIEW dated 02/02/2014; CHEST SINGLE VIEW dated 05/26/2009; Thorax Wo Con dated 06/29/2019 FINDINGS: Lines: None. Lungs: Airspace disease the left lung base is not significantly changed. Pleural: Small left effusion. Cardiac: The heart size is within normal limits. Bones: No acute fractures. Other: IMPRESSION: Left basilar airspace disease is unchanged since 05/09/2021 the could reflect pneumonia with associated small effusion.
[2021-05-12] MEDS: lisinopriL 10 MG TAB PO SCH (08:00)
[2021-05-12] MEDS: APIXABAN 5 MG TABLET PO SCH ×2 (08:18→20:12)
[2021-05-12] MEDS: FAMOTIDINE 20 MG TAB PO SCH ×2 (08:18→20:12)
[2021-05-12] MEDS: NICOTINE 7 MG/PAT TD SCH (08:18)
[2021-05-12] MEDS: THIAMINE HCL 100 MG TABLET PO SCH (08:18)
[2021-05-12] MEDS: ENSURE HIGH PROTEIN 237 ML CAN PO SCH ×2 (08:19→20:12)
[2021-05-12] MEDS: MULTIVITAMINS 5 ML ORAL SYR FT SCH (08:19)
[2021-05-12 08:43] LABS: Blood Morphology Comment NOT SEEN (NOT SEEN); Platelet Estimate ADEQ; White Blood Cell Scan OK (OK)
--- NOTE | 2021-05-12 10:01 | P.RH.PN ---
Vital Signs: Last Vital Signs Temp 97.3 F 05/12/21 07:45 Pulse 64 05/12/21 09:00 Resp 18 05/12/21 07:45 BP 118/68 05/12/21 09:00 Pulse Ox 96 05/12/21 07:45 Laboratory: Laboratory Last Values WBC 14.70 K/uL (4.3-10.9) H D 05/12/21 05:45 RBC 3.83 M/uL (4.33-5.43) L 05/12/21 05:45 Hgb 11.4 g/dL (13.6-17.9) L 05/12/21 05:45 Hct 34.9 % (39.6-49.0) L 05/12/21 05:45 MCV 91.3 fL (80-100) 05/12/21 05:45 MCH 29.9 pg (27.0-35.0) 05/12/21 05:45 MCHC 32.7 g/dL (32.0-36.0) 05/12/21 05:45 RDW 14.5 % (12.1-15.2) 05/12/21 05:45 Plt Count 379 K/uL (152-406) 05/12/21 05:45 MPV 7.3 fL (7.6-11.3) L 05/12/21 05:45 Neutrophils % 86.2 % (41.7-73.7) H 05/12/21 05:45 Lymphocytes % 5.0 % (15.3-44.8) L 05/12/21 05:45 Monocytes % 7.8 % (3.3-12.3) 05/12/21 05:45 Eosinophils % 0.9 % (0-4.4) 05/12/21 05:45 Basophils % 0.1 % (0-1.3) 05/12/21 05:45 Absolute Neutrophils 12.6 K/uL (1.8-8.0) H 05/12/21 05:45 Absolute Lymphocytes 0.7 K/uL (0.7-4.9) 05/12/21 05:45 Absolute Monocytes 1.1 K/uL (0.1-1.3) 05/12/21 05:45 Absolute Eosinophils 0.1 K/uL (0-0.5) 05/12/21 05:45 Absolute Basophils 0.0 K/uL (0-0.5) 05/12/21 05:45 Platelet Estimate Adeq 05/12/21 05:45 Morphology Comment Not seen (NOT SEEN) 05/12/21 05:45 Sodium 137 mmol/L (136-145) 05/12/21 05:45 Potassium 5.1 mmol/L (3.5-5.1) 05/12/21 05:45 Chloride 95 mmol/L (98-107) L 05/12/21 05:45 Carbon Dioxide 36 mmol/L (21-32) H 05/12/21 05:45 BUN 69 mg/dL (7-18) H 05/12/21 05:45 Creatinine 1.76 mg/dL (0.55-1.3) H 05/12/21 05:45 Estimated GFR 38 mL/min (=/>90) L 05/12/21 05:45 Glucose 141 mg/dL (74-106) H 05/12/21 05:45 Calcium 9.1 mg/dL (8.5-10.1) 05/12/21 05:45 Magnesium 2.6 mg/dL (1.8-2.4) H D 05/11/21 06:33 Albumin 2.2 g/dL (3.4-5.0) L 05/11/21 06:33 Prealbumin 17.9 mg/dL (20-40) L 05/11/21 06:33 Urine Color Yellow (Yellow) 05/07/21 17:30 Urine Appearance Clear (Clear) 05/07/21 17:30 Urine pH 7.5 (5.0-7.0) H 05/07/21 17:30 Ur Specific [place] 1.020 (1.005-1.030) 05/07/21 17:30 Glucose (UA)(Auto) Negative (Negative) 05/07/21 17:30 Urine Ketones Negative (Negative) 05/07/21 17:30 Urine Blood Negative (Negative) 05/07/21 17:30 Urine Nitrite Negative (Negative) 05/07/21 17:30 Urine Bilirubin Negative (Negative) 05/07/21 17:30 Urine Urobilinogen 1.0 mg/dL (0.2-1.0) 05/07/21 17:30 Ur Leukocyte Esterase Negative (Negative) 05/07/21 17:30 Urine Total Protein Negative (Negative) 05/07/21 17:30 SARS-CoV-2 Rap RNA(RT-PCR) Negative (NEGATIVE) 05/10/21 09:40 Smear Scan Ok (OK) 05/12/21 05:45 Weight: 118 lb Wound Present: No Closed Surgical Incision Present: No Negative Pressure Wound Therapy Present: No Physician Update: He is still aspirating with sips of water and ice chips. He has an aspiration pneumonia and is on Levaquin. Walking 250' with standby assistance. Contact guard with ADLs. Comment: redness to sacral area noted, calazime lotion applied Functional Improvement: Patient is working hard to meet his goals. Patient has improved his balance and endurance. Summary: Patient's care plan and fci goals have been reviewed and revised as necessary. Please see the Rehabilitation Signature page for all necessary signatures.
[2021-05-12] MEDS: PIPER TAZO 3.375 GM in NA CHLORIDE 0.9% 100 ML IV SCH ×2 (11:17→16:27)
[2021-05-12] MEDS ORDERED: JEVITY 1.5 CAL LIQUID 1,000 ML BOT RTH SCH (12:15)
[2021-05-12] MEDS: VANCOMYCIN 1 GM in NA CHLORIDE 0.9% 250 ML IVPB SCH (13:29)
[2021-05-12] MEDS: MELATONIN 3 MG TABLET PO SCH (20:13)
[2021-05-12] MEDS: ROSUVASTATIN 10 MG TAB PO SCH (20:13)
[2021-05-12] MEDS: LOPERAMIDE HCL 2 MG CAPSULE PO PRN (23:46)
[2021-05-13] MEDS: PIPER TAZO 3.375 GM in NA CHLORIDE 0.9% 100 ML IV SCH ×3 (00:09→17:07)
[2021-05-13] MEDS: METOPROLOL TAR 25 MG TAB PO SCH ×2 (05:03→17:07)
[2021-05-13 06:34] LABS: Hematocrit 34.5 % (39.6-49.0); Lymphocytes % 8.8 % (15.3-44.8); MPV 7.5 fL (7.6-11.3); RBC Red Blood Cell Count 3.79 M/uL (4.33-5.43)
[2021-05-13 06:51] LABS: Potassium 4.7 mmol/L (3.5-5.1)
[2021-05-13] MEDS: APIXABAN 5 MG TABLET PO SCH ×2 (08:00→19:57)
[2021-05-13] MEDS: MULTIVITAMINS 5 ML ORAL SYR FT SCH (08:00)
[2021-05-13] MEDS: THIAMINE HCL 100 MG TABLET PO SCH (08:00)
[2021-05-13] MEDS ORDERED: levoFLOXacin 750 MG TAB PO SCH (08:00)
[2021-05-13] MEDS: ACETAMINOPHEN 160 MG/5 ML UCUP PO PRN ×2 (09:03→15:11)
[2021-05-13] MEDS: lisinopriL 10 MG TAB PO SCH (09:53)
[2021-05-13] MEDS: FAMOTIDINE 20 MG TAB PO SCH ×2 (09:54→19:57)
[2021-05-13] MEDS: NICOTINE 7 MG/PAT TD SCH (09:54)
[2021-05-13] MEDS: ENSURE HIGH PROTEIN 237 ML CAN PO SCH ×2 (09:57→19:58)
[2021-05-13] MEDS: ROSUVASTATIN 10 MG TAB PO SCH (19:56)
[2021-05-13] MEDS: DOXAZOSIN 2 MG TAB PO SCH (19:57)
[2021-05-13] MEDS: MELATONIN 3 MG TABLET PO SCH (19:57)
[2021-05-13] MEDS: ACETAMINOPHEN 500 MG TAB PO PRN (20:26)
[2021-05-13] MEDS ORDERED: TAMSULOSIN 0.4 MG SR CAP PO SCH (21:00)
[2021-05-14] MEDS: PIPER TAZO 3.375 GM in NA CHLORIDE 0.9% 100 ML IV SCH ×3 (00:05→17:00)
[2021-05-14] MEDS: VANCOMYCIN 1 GM in NA CHLORIDE 0.9% 250 ML IVPB SCH (02:40)
[2021-05-14] MEDS: METOPROLOL TAR 25 MG TAB PO SCH ×2 (05:03→17:19)
[2021-05-14] MEDS ORDERED: DOXAZOSIN 2 MG TAB PO SCH (08:00)
[2021-05-14] MEDS: ALBUTEROL 2.5 MG/3 ML NEB SOL NEB PRN (08:16)
[2021-05-14] MEDS: IPRATROPIUM BROM 0.5MG/2.5ML NEB PRN (08:16)
[2021-05-14] MEDS: MULTIVITAMINS 5 ML ORAL SYR FT SCH (08:45)
[2021-05-14] MEDS: THIAMINE HCL 100 MG TABLET PO SCH (08:45)
[2021-05-14] MEDS: ENSURE HIGH PROTEIN 237 ML CAN PO SCH ×2 (08:45→19:28)
[2021-05-14] MEDS: FAMOTIDINE 20 MG TAB PO SCH ×2 (08:45→19:27)
[2021-05-14] MEDS: ACETAMINOPHEN 500 MG TAB PO PRN ×2 (08:45→20:14)
[2021-05-14] MEDS: lisinopriL 10 MG TAB PO SCH (08:45)
[2021-05-14] MEDS: NICOTINE 7 MG/PAT TD SCH (08:45)
[2021-05-14] MEDS: APIXABAN 5 MG TABLET PO SCH ×2 (08:45→19:28)
[2021-05-14] MEDS: DOXAZOSIN 2 MG TAB PO SCH (19:26)
[2021-05-14] MEDS: ROSUVASTATIN 10 MG TAB PO SCH (19:26)
[2021-05-14] MEDS: MELATONIN 3 MG TABLET PO SCH (19:28)
[2021-05-14] MEDS ORDERED: NA CHLORIDE 0.9% 250 ML ONE (19:59)
[2021-05-15] MEDS: PIPER TAZO 3.375 GM in NA CHLORIDE 0.9% 100 ML IV SCH ×3 (00:22→16:33)
[2021-05-15] MEDS: METOPROLOL TAR 25 MG TAB PO SCH ×2 (05:12→17:00)
[2021-05-15 07:30] LABS: Absolute Lymphocytes (CBC) 1.2 K/uL (0.7-4.9); Lymphocytes % 10.5 % (15.3-44.8); MPV 7.3 fL (7.6-11.3); RBC Red Blood Cell Count 3.37 M/uL (4.33-5.43)
[2021-05-15 07:46] LABS: Potassium 4.6 mmol/L (3.5-5.1)
[2021-05-15] MEDS: APIXABAN 5 MG TABLET PO SCH (08:00)
[2021-05-15] MEDS: FAMOTIDINE 20 MG TAB PO SCH ×2 (08:17→20:33)
[2021-05-15] MEDS: NICOTINE 7 MG/PAT TD SCH (08:17)
[2021-05-15] MEDS: THIAMINE HCL 100 MG TABLET PO SCH (08:17)
[2021-05-15] MEDS: ACETAMINOPHEN 500 MG TAB PO PRN ×2 (08:18→16:59)
[2021-05-15] MEDS: lisinopriL 10 MG TAB PO SCH (08:18)
[2021-05-15] MEDS: MULTIVITAMINS 5 ML ORAL SYR FT SCH (08:21)
[2021-05-15] MEDS: ENSURE HIGH PROTEIN 237 ML CAN PO SCH ×2 (10:08→20:34)
--- NOTE | 2021-05-15 12:42 | RAD REPORT ---
EXAM DESCRIPTION: RAD - Abdomen 1 View (KUB) - 05/15/2021 12:32 pm CLINICAL HISTORY: abd pain COMPARISON: ESOPHAGRAM ONLY dated 04/04/2012; Thorax Wo Con dated 06/29/2019; Chest Single View dated ; Chest Single View dated 05/09/2021 FINDINGS: Nonobstructive bowel gas pattern. No acute osseous abnormality.Left basilar airspace disea se is again identified. Cardiomegaly. Nerve stimulator overlies the right hemiabdomen. IMPRESSION: Nonobstructive bowel gas pattern.
--- NOTE | 2021-05-15 15:41 | R.PN ---
PROGRESS NOTES ENCOUNTER DATE AND TIME: 05/15/2021 15:29 ([employer]) NAME LUCIA BACON DATE OF : 1945 DATE OF ADMISSION: 05/07/2021 15:42 ([employer]) Acute L MCA strokeCHIEF COMPLAINT: Right hemiparesis and aphasia SUBJECTIVE: Pt denied any depression. Pt denied any Shortness of Breath. Therapeutic exercised done with slow pace and supervision. WBC improved to 11.0 with 76.5 % neutrophils. Continue antibiotics Vancomycin 1 gm q 48 hrs, and Zosy n 3.375 mg q 8 hrs for 2 more days. Na 138, prealbumin 17.9, glucose 116, Front Office Supervisor 1.82, . UA is normal. C ovid-19 test is negative 05/10/21. Eliquis 5 mg twice daily. He reported 10/10 abdominal pain today with therapy. His KUB is unremarkable. Will do abdominal and p lauryn CT scan and kidney ultrasound and he has ongoing pain with difficulty initiating urine stream w hile his urine cath does not suggest an out flow obstruction problem. May get urologits consult with Dr. Fregoso. VITAL SIGNS Temperature: 97.6 F SBP/DBP: 126/60 Pulse: 60 Resp: 16 MEDICATION ALLERGIES: No Known Drug Allergies (NKDA) ENVIRONMENTAL ALLERGIES: None Known - Substance Allergies None Known - Other Allergies None Known NURSING: - Shower allowing shower - Bladder care per protocol - Skin care per protocol PRECAUTIONS: - Weight Bearing Precaution WBAT all extremities per pt's chart - Fall Precaution Bed alarm TABS alarm Wheel chair alarm - Skin Breakdown Risk skin assessments - Aspiration Precaution Pt on peg tube feeding - Safety Fall risk assist with xfers/STS - O2 saturations monitor O2 levels - Stroke Monitor signs and symptoms of stroke ACTIVITIES OOB only with supervision THERAPIES: - Dietary and Nutrition Adequate Nutrition. Nutritional Education. Nutritional Supplements. - Occupational Therapy Cognitive Retraining. Evaluate and Treat. ADL Training. Adaptive Equipment. Eating. Household Tasks. Patient/Family Education. Safety Awareness. Transfer Training. UE ROM. UE Strengthening. Visual Perce ptual Training. - Speech Therapy Cognitive Training. Expressive Language Skills. Memory Strategies. Receptive Language Skills. Speech Intelligibility Training. - Physical Therapy Balance Training. Evaluate and Treat. Gait Training. LE ROM. LE Strengthening. Medical Equipment Asse ssment and Evaluation. Mobility Training. Patient/Family Education. Safety Awareness. Transfer Traini ng. PHYSICAL EXAM - Gen Alert and awake Lying in bed No apparent distress Oriented to: person, time, and place - Skin No breakdown No abnormalities - Eyes No abnormalities - ENMT No abnormalities - Neck No abnormalities - CVS RRR - Chest Mildly decreased breath sounds bilaterally. - Abd Soft - GI + bowel sounds Deferred - No abnormalities - Ext Mild right lower extremity edema. - MSK 4+/5 weakness in left upper and lower extremity - Neuro 4/5 strength right upper and lower extremities. - Psych No abnormalities - OTHER Ambulated 250' with contact guard assistance using a rolling walker. ASSESSMENT: On 04/27/2021 Pt. presented to [facility] with sudden onset of right-side weakness.Pt. is a 76 yo white male.On 04/27/2021 he was admitted to [facility] with diagnosis Acute L MCA stroke.His impairment category is Stroke 01 - Right Body (Left Brain) (01.2).Pre-morbidly, Pt. was independent /mod-I in Safety Awareness, Locomotion, Social Cognition, Transfers Control, and Balance; and he had good Transfers Control, Sphincter Control, Self-Care, Communication, and Endurance.Currently, he has deficits of Locomotion, Safety Awareness, Social Cognition, Balance, Transfers Control, Sphincter Con trol, Self-Care, Communication, and Endurance.Pt. is now referred to [facility] for acute in-patient rehabilitation in order to maximize patient's functional independence in activ ities of daily living, strength, ROM, and mobility.- Rehab Goal Patient has realistic goal of being discharged at assistance level partial assist to independent to r eside at Home with Family/Relatives. MDM/PLAN: - Physical Therapy Gait dysfunction - to improve, our physical therapists will perform initial evaluation of pt's statu s upon admission and devise an individualized program for Gait Training, and Wheel Chair mobility Inability to transfer - to improve, our physical therapists will perform initial evaluation of pt's status upon admission and devise an individualized program for Bed mobility Need for home safety evaluation - to improve, our physical therapists will perform initial evaluatio n of pt's status upon admission and devise an individualized program for Home Evaluation Need in caregiver upon discharge - to improve, our physical therapists will perform initial evaluati on of pt's status upon admission and devise an individualized program for Caregiver Training New precaution - to improve, our physical therapists will perform initial evaluation of pt's status upon admission and devise an individualized program for Patient precaution education Edema - to improve, our physical therapists will perform initial evaluation of pt's status upon admi ssion and devise an individualized program for Elevation Training, and Lymphedema Therapy Poor balance - to improve, our physical therapists will perform initial evaluation of pt's status up on admission and devise an individualized program for Balance Training Poor endurance - to improve, our physical therapists will perform initial evaluation of pt's status upon admission and devise an individualized program for Endurance Training Weakness - to improve, our physical therapists will perform initial evaluation of pt's status upon a dmission and devise an individualized program for Aquatic Therapy, Neuromuscular Reeducation, and Str engthening Achieving independence - to improve, our physical therapists will perform initial evaluation of pt's status upon admission and devise an individualized program for Community Reintegration Activities - Occupational Therapy ADL deficits - to improve, our occupation therapists will perform initial evaluation of pt's status upon admission and devise an individualized program for Bathing, Bed mobility, Community Reintegratio n, Cooking, Dressing, Eating, Fine Motor Skills, Grooming, Homemaking, Kitchen Mobility, Laundry, Pat ient Education, Safety Awareness, Splinting - Positioning, Transfers(Toilet, Tub, Shower), and Wheel Chair Management Cognitive deficits - to improve, our occupation therapists will perform initial evaluation of pt's s tatus upon admission and devise an individualized program for Cognition - orientation Need for customer care assistant - to improve, our occupation therapists will perform initial evaluation of pt's status upon admission and devise an individualized program for Caregiver Training Weakness - to improve, our occupation therapists will perform initial evaluation of pt's status upon admission and devise an individualized program for Aquatic Therapy, Balance, Endurance, UE ROM, and UE strengthening - Other See attached MAR (Medication Administration Record) - Diet Type Continue NPO - Diet - Liquid Texture Continue Regular - Tube Feed Continue N/A - Bladder care per protocol - Skin Breakdown Risk skin assessments - Aspiration Precaution Pt on peg tube feeding - Weight Bearing Precaution WBAT all extremities - Fall Precaution Bed alarm TABS alarm Wheel chair alarm - Skin care per protocol - Diet - Solid Texture Continue Regular - Shower allowing shower - Safety Fall risk assist with xfers/STS - O2 saturations monitor O2 levels - Stroke Monitor signs and symptoms of stroke for Dementia, TBI, Stroke, or others FUNCTIONAL STATUS: UPDATED AT WEEKLY TEAM CONFERENCE - Bladder Same accident frequency: 7-Ind - No accidents in the past 7 days - Bowel Same accident frequency: 7-Ind - No accidents in the past 7 days - Walking Same score based on distance walked: 0(N/A) - Wheelchair Same score based on distance traveled: 0(N/A) FUNCTIONAL STATUS: - Self-Care A. Eating Bradley B. Grooming sup C. Bathing modA D. Dressing - Upper Bradley E. Dressing - Lower modA F. Toileting modA - Sphincter Control G. Bladder control sup H. Bowel control sup - Transfers Control I. Bed/Chair/Wheelchair Bradley J. Toilet Bradley K. Tub/Shower modA - Locomotion L. Walk/Wheelchair (B) Bradley M. Stairs maxA - Communication N. Comprehension (B) Bradley O. Expression (B) Bradley - Social Cognition P. Social Interaction sup Q. Problem Solving sup R. Memory sup - Endurance Fair - Balance Fair - Safety Awareness Fair QI SCORES: - Self-Care A. Eating 01-Dependent B. Oral hygiene 03-Partial/moderate assistance C. Toileting hygiene 02-Substantial/maximal assistance E. Shower/bathe self 02-Substantial/maximal assistance F. Upper body dressing 03-Partial/moderate assistance G. Lower body dressing 02-Substantial/maximal assistance H. Putting on/taking off footwear 02-Substantial/maximal assistance - Mobility A. Roll left and right 03-Partial/moderate assistance B. Sit to lying 03-Partial/moderate assistance C. Lying to sitting on side of bed 03-Partial/moderate assistance D. Sit to stand 03-Partial/moderate assistance E. Chair/[id number] transfer 03-Partial/moderate assistance F. Toilet transfer 03-Partial/moderate assistance G. Car transfer 88-Not attempted due to medical condition or safety concerns I. Walk 10 feet 88-Not attempted due to medical condition or safety concerns J. Walk 50 feet with two turns 88-Not attempted due to medical condition or safety concerns K. Walk 150 feet 88-Not attempted due to medical condition or safety concerns L. Walking 10 feet on uneven surfaces 88-Not attempted due to medical condition or safety concerns M. 1 step (curb) 88-Not attempted due to medical condition or safety concerns N. 4 steps 88-Not attempted due to medical condition or safety concerns O. 12 steps 88-Not attempted due to medical condition or safety concerns P. Picking up object R. Wheel 50 feet with two turns 88-Not attempted due to medical condition or safety concerns S. Wheel 150 feet 88-Not attempted due to medical condition or safety concerns - Bladder and Bowel Bladder continence Bowel continence - Endurance Fair - Balance Fair - Safety Awareness Fair CURRENT [facility]. DEFICITS: Self-Care, Mobility, Endurance, Balance, and Safety Awareness SIGNATURE PANEL: ([employer])
--- NOTE | 2021-05-15 16:01 | RAD REPORT ---
EXAM DESCRIPTION: CT - Abdomen Pelvis Wo Contrast - 05/15/2021 3:11 pm CLINICAL HISTORY: pain lower abd,pubic area COMPARISON: No comparisons TECHNIQUE: Axial [address] imaging of the abdomen and pelvis was performed without IV contrast. No IV contrast was given because of allergy, abnormal renal function, patient refusal or physician re quest. Oral contrast was given. All CT scans are performed using dose optimization technique as appropriate and may include automated exposure control or mA/KV adjustment according to patient size. FINDINGS: Areas of irregular consolidated parenchyma seen in each posterior lung base, left greater than right. No associated or measurable pleural effusions. There is no pneumothorax. No pericardial t hickening or effusion. The liver, spleen and pancreas show no suspicious findings on non-contrast imaging. Gallbladder is co ntracted or absent. No abnormal biliary tree dilatation. No hydronephrosis or suspicious renal mass. No significant adrenal finding. Isodense renal masses an d pyelonephritis cannot be excluded in the absence of IV contrast. Partially filled urinary bladder s hows no wall thickening or mass. No bladder calculi. A single punctate focus of air is present in the nondependent portion of the bladder lumen possibly from in- and out catheterization. Stomach is decompressed. PEG tube is in place. No mass or inflammatory stranding seen along the cours e of the PEG tube to the skin surface. Air and liquid bowel content seen throughout nondilated small bowel loops. No appendicitis findings. Air and mostly liquid stool are seen from cecum through sigmoi d portions of the colon without dilation. Rectum is dilated to 9 cm with solid stool, liquid stool an d air. No free air, free fluid or inflammatory stranding. No hernia, mass or bulky lymphadenopathy. No suspicious bony findings. Degenerative changes are present. Neurostimulator device is present in t he central canal of the lower spine. IMPRESSION: Rectum is dilated to 9 cm containing solid stool, liquid stool and air. No anal mass see n of CT sensitivity is limited. Remainder of the colon is distended but not dilated. No acute stomach or small bowel finding. Areas of consolidated parenchyma in each posterior lower lobe suspicious for infectious or even possi maurisio aspiration pneumonia. Full assessment is limited is the absence of IV contrast.
--- NOTE | 2021-05-15 16:08 | RAD REPORT ---
EXAM DESCRIPTION: US - Renal Ultrasound-Complete - 05/15/2021 3:55 pm CLINICAL HISTORY: pain when voiding, elevated creatinine COMPARISON: Abdomen Pelvis Wo Contrast dated 05/15/2021 FINDINGS: The right kidney measures approximately 7.8 x 4.7 x 3.7 cm. The left kidney measures 9.4 x 4.6 x 3.3 cm. Renal cortical thickness and echogenicity are normal. No hydronephrosis or suspicious renal mass. Partially filled urinary bladder shows no wall thickening or mass. No stone or intraluminal abnormali ty. Patient was unable to void for the examination. IMPRESSION: No hydronephrosis or suspicious renal mass. No bladder wall thickening or mass identifiable.
[2021-05-15] MEDS ORDERED: APIXABAN 5 MG TABLET PO SCH (20:00)
[2021-05-15] MEDS: APIXABAN 2.5 MG TABLET PO SCH (20:32)
[2021-05-15] MEDS: MELATONIN 3 MG TABLET PO SCH (20:33)
[2021-05-15] MEDS: DOXAZOSIN 2 MG TAB PO SCH (20:33)
[2021-05-15] MEDS: ROSUVASTATIN 10 MG TAB PO SCH (20:34)
[2021-05-16] MEDS: PIPER TAZO 3.375 GM in NA CHLORIDE 0.9% 100 ML IV SCH ×3 (00:34→16:12)
[2021-05-16 01:13] LABS: Absolute Lymphocytes (CBC) 1.1 K/uL (0.7-4.9); Hematocrit 30.4 % (39.6-49.0); Lymphocytes % 11.1 % (15.3-44.8); MPV 7.5 fL (7.6-11.3); RBC Red Blood Cell Count 3.34 M/uL (4.33-5.43)
[2021-05-16 01:24] LABS: Potassium 4.4 mmol/L (3.5-5.1)
[2021-05-16] MEDS ORDERED: VANCOMYCIN 1 GM in NA CHLORIDE 0.9% 250 ML IVPB SCH (02:00)
[2021-05-16] MEDS: METOPROLOL TAR 25 MG TAB PO SCH ×2 (05:03→17:04)
[2021-05-16] MEDS: ACETAMINOPHEN 500 MG TAB PO PRN (05:03)
[2021-05-16] MEDS: THIAMINE HCL 100 MG TABLET PO SCH (08:00)
[2021-05-16] MEDS: lisinopriL 10 MG TAB PO SCH (08:00)
[2021-05-16] MEDS: FAMOTIDINE 20 MG TAB PO SCH ×2 (08:47→20:08)
[2021-05-16] MEDS: NICOTINE 7 MG/PAT TD SCH (08:47)
[2021-05-16] MEDS: APIXABAN 2.5 MG TABLET PO SCH ×2 (08:47→20:10)
[2021-05-16] MEDS: MULTIVITAMINS 5 ML ORAL SYR FT SCH (08:58)
[2021-05-16] MEDS: ENSURE HIGH PROTEIN 237 ML CAN PO SCH (08:59)
[2021-05-16] MEDS: IPRATROPIUM BROM 0.5MG/2.5ML NEB PRN (14:59)
[2021-05-16] MEDS: ALBUTEROL 2.5 MG/3 ML NEB SOL NEB PRN (14:59)
--- NOTE | 2021-05-16 17:56 | R.PN ---
PROGRESS NOTES ENCOUNTER DATE AND TIME: 05/16/2021 17:46 (FLUME TENDER) NAME LUCIA BACON DATE OF : 1945 DATE OF ADMISSION: 05/07/2021 15:42 (FLUME TENDER) Acute L MCA strokeCHIEF COMPLAINT: Right hemiparesis and aphasia SUBJECTIVE: Pt denied any depression. Pt denied any Shortness of Breath. Therapeutic exercised done with slow pace and supervision. WBC improved to 9.6 with 72.2 % neutrophils. Continue antibiotics Vancomycin 1 gm q 48 hrs, and Zosyn 3.375 mg q 8 hrs for 1 more day. Will start Levaquin 750 mg daily for 10 more days. 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 UA is normal. Covid-19 test is negative 05/10/21. Eliquis 5 mg twice daily. He reported 10/10 abdominal pain today with therapy. May get urologits consult with Dr. Fregoso. Renal ultrasound is normal. No bladder wall thickening or mass. KUB: no bowel obstruction pattern. Ab domin and pelvic CT. Rectum dilated to 9 cm with solid stool, liquid stool and air. No anal mass. Patient should be upright and out of bed to urinate. He ambulated 20' with contact guard assistance using a rolling walker. VITAL SIGNS Temperature: 97.4 F SBP/DBP: 101/68 Pulse: 68 Resp: 14 MEDICATION ALLERGIES: No Known Drug Allergies (NKDA) ENVIRONMENTAL ALLERGIES: None Known - Substance Allergies None Known - Other Allergies None Known NURSING: - Shower allowing shower - Bladder care per protocol - Skin care per protocol PRECAUTIONS: - Weight Bearing Precaution WBAT all extremities per pt's chart - Fall Precaution Bed alarm TABS alarm Wheel chair alarm - Skin Breakdown Risk skin assessments - Aspiration Precaution Pt on peg tube feeding - Safety Fall risk assist with xfers/STS - O2 saturations monitor O2 levels - Stroke Monitor signs and symptoms of stroke ACTIVITIES OOB only with supervision THERAPIES: - Dietary and Nutrition Adequate Nutrition. Nutritional Education. Nutritional Supplements. - Occupational Therapy Cognitive Retraining. Evaluate and Treat. ADL Training. Adaptive Equipment. Eating. Household Tasks. Patient/Family Education. Safety Awareness. Transfer Training. UE ROM. UE Strengthening. Visual Perce ptual Training. - Speech Therapy Cognitive Training. Expressive Language Skills. Memory Strategies. Receptive Language Skills. Speech Intelligibility Training. - Physical Therapy Balance Training. Evaluate and Treat. Gait Training. LE ROM. LE Strengthening. Medical Equipment Asse ssment and Evaluation. Mobility Training. Patient/Family Education. Safety Awareness. Transfer Traini mayra. PHYSICAL EXAM - Gen Alert and awake Lying in bed No apparent distress Oriented to: person, time, and place - Skin No breakdown No abnormalities - Eyes No abnormalities - ENMT No abnormalities - Neck No abnormalities - CVS RRR - Chest Mildly decreased breath sounds bilaterally. - Abd Soft - GI + bowel sounds Deferred - No abnormalities - Ext Mild right lower extremity edema. - MSK 4+/5 weakness in left upper and lower extremity - Neuro 4/5 strength right upper and lower extremities. - Psych No abnormalities - OTHER Ambulated 250' with contact guard assistance using a rolling walker. ASSESSMENT: On 04/27/2021 Pt. presented to [facility] with sudden onset of right-side weakness.Pt. is a 76 yo white male.On 04/27/2021 he was admitted to [facility] with diagnosis Acute L MCA stroke.His impairment category is Stroke 01 - Right Body (Left Brain) (01.2).Pre-morbidly, Pt. was independent /mod-I in Safety Awareness, Locomotion, Social Cognition, Transfers Control, and Balance; and he had good Transfers Control, Sphincter Control, Self-Care, Communication, and Endurance.Currently, he has deficits of Locomotion, Safety Awareness, Social Cognition, Balance, Transfers Control, Sphincter Con trol, Self-Care, Communication, and Endurance.Pt. is now referred to [facility] for acute in-patient rehabilitation in order to maximize patient's functional independence in activ ities of daily living, strength, ROM, and mobility.- Rehab Goal Patient has realistic goal of being discharged at assistance level partial assist to independent to r eside at Home with Family/Relatives. MDM/PLAN: - Physical Therapy Gait dysfunction - to improve, our physical therapists will perform initial evaluation of pt's statu s upon admission and devise an individualized program for Gait Training, and Wheel Chair mobility Inability to transfer - to improve, our physical therapists will perform initial evaluation of pt's status upon admission and devise an individualized program for Bed mobility Need for home safety evaluation - to improve, our physical therapists will perform initial evaluatio n of pt's status upon admission and devise an individualized program for Home Evaluation Need in caregiver upon discharge - to improve, our physical therapists will perform initial evaluati on of pt's status upon admission and devise an individualized program for Caregiver Training New precaution - to improve, our physical therapists will perform initial evaluation of pt's status upon admission and devise an individualized program for Patient precaution education Edema - to improve, our physical therapists will perform initial evaluation of pt's status upon admi ssion and devise an individualized program for Elevation Training, and Lymphedema Therapy Poor balance - to improve, our physical therapists will perform initial evaluation of pt's status up on admission and devise an individualized program for Balance Training Poor endurance - to improve, our physical therapists will perform initial evaluation of pt's status upon admission and devise an individualized program for Endurance Training Weakness - to improve, our physical therapists will perform initial evaluation of pt's status upon a dmission and devise an individualized program for Aquatic Therapy, Neuromuscular Reeducation, and Str engthening Achieving independence - to improve, our physical therapists will perform initial evaluation of pt's status upon admission and devise an individualized program for Community Reintegration Activities - Occupational Therapy ADL deficits - to improve, our occupation therapists will perform initial evaluation of pt's status upon admission and devise an individualized program for Bathing, Bed mobility, Community Reintegratio n, Cooking, Dressing, Eating, Fine Motor Skills, Grooming, Homemaking, Kitchen Mobility, Laundry, Pat ient Education, Safety Awareness, Splinting - Positioning, Transfers(Toilet, Tub, Shower), and Wheel Chair Management Cognitive deficits - to improve, our occupation therapists will perform initial evaluation of pt's s tatus upon admission and devise an individualized program for Cognition - orientation Need for laboratory animal care veterinarian - to improve, our occupation therapists will perform initial evaluation of pt's status upon admission and devise an individualized program for Caregiver Training Weakness - to improve, our occupation therapists will perform initial evaluation of pt's status upon admission and devise an individualized program for Aquatic Therapy, Balance, Endurance, UE ROM, and UE strengthening - Other See attached MAR (Medication Administration Record) - Diet Type Continue NPO - Diet - Liquid Texture Continue Regular - Tube Feed Continue N/A - Bladder care per protocol - Skin Breakdown Risk skin assessments - Aspiration Precaution Pt on peg tube feeding - Weight Bearing Precaution WBAT all extremities - Fall Precaution Bed alarm TABS alarm Wheel chair alarm - Skin care per protocol - Diet - Solid Texture Continue Regular - Shower allowing shower - Safety Fall risk assist with xfers/STS - O2 saturations monitor O2 levels - Stroke Monitor signs and symptoms of stroke for Dementia, TBI, Stroke, or others FUNCTIONAL STATUS: UPDATED AT WEEKLY TEAM CONFERENCE - Bladder Same accident frequency: 7-Ind - No accidents in the past 7 days - Bowel Same accident frequency: 7-Ind - No accidents in the past 7 days - Walking Same score based on distance walked: 0(N/A) - Wheelchair Same score based on distance traveled: 0(N/A) FUNCTIONAL STATUS: - Self-Care A. Eating Bradley B. Grooming sup C. Bathing modA D. Dressing - Upper Bradley E. Dressing - Lower modA F. Toileting modA - Sphincter Control G. Bladder control sup H. Bowel control sup - Transfers Control I. Bed/Chair/Wheelchair Bradley J. Toilet Bradley K. Tub/Shower modA - Locomotion L. Walk/Wheelchair (B) Bradley M. Stairs maxA - Communication N. Comprehension (B) Bradley O. Expression (B) Bradley - Social Cognition P. Social Interaction sup Q. Problem Solving sup R. Memory sup - Endurance Fair - Balance Fair - Safety Awareness Fair QI SCORES: - Self-Care A. Eating 01-Dependent B. Oral hygiene 03-Partial/moderate assistance C. Toileting hygiene 02-Substantial/maximal assistance E. Shower/bathe self 02-Substantial/maximal assistance F. Upper body dressing 03-Partial/moderate assistance G. Lower body dressing 02-Substantial/maximal assistance H. Putting on/taking off footwear 02-Substantial/maximal assistance - Mobility A. Roll left and right 03-Partial/moderate assistance B. Sit to lying 03-Partial/moderate assistance C. Lying to sitting on side of bed 03-Partial/moderate assistance D. Sit to stand 03-Partial/moderate assistance E. Chair/euf-iv-jrduo transfer 03-Partial/moderate assistance F. Toilet transfer 03-Partial/moderate assistance G. Car transfer 88-Not attempted due to medical condition or safety concerns I. Walk 10 feet 88-Not attempted due to medical condition or safety concerns J. Walk 50 feet with two turns 88-Not attempted due to medical condition or safety concerns K. Walk 150 feet 88-Not attempted due to medical condition or safety concerns L. Walking 10 feet on uneven surfaces 88-Not attempted due to medical condition or safety concerns M. 1 step (curb) 88-Not attempted due to medical condition or safety concerns N. 4 steps 88-Not attempted due to medical condition or safety concerns O. 12 steps 88-Not attempted due to medical condition or safety concerns P. Picking up object R. Wheel 50 feet with two turns 88-Not attempted due to medical condition or safety concerns S. Wheel 150 feet 88-Not attempted due to medical condition or safety concerns - Bladder and Bowel Bladder continence Bowel continence - Endurance Fair - Balance Fair - Safety Awareness Fair CURRENT [facility]. DEFICITS: Self-Care, Mobility, Endurance, Balance, and Safety Awareness SIGNATURE PANEL: (FLUME TENDER)
[2021-05-16] MEDS: ROSUVASTATIN 10 MG TAB PO SCH (20:09)
[2021-05-16] MEDS: MELATONIN 3 MG TABLET PO SCH (20:11)
[2021-05-16] MEDS: DOXAZOSIN 2 MG TAB PO SCH (20:11)
--- NOTE | 2021-05-16 23:08 | CON ---
Date of Consult: 05/09/21 Reason For Consultation: Lower abdominal pain. History Of Present Illness: Mr. Jim is a 76-year-old gentleman who was admitted to [facility] on 04/27/2021 with a diagnosis of an acute left MCA stroke. He had significant impaired movement throughout according to the patient, but he has regained some of that movement in his bilateral upper and lower extremities. He notes he is able to stand currently, but he cannot walk significant distances. He has been admitted to the rehab unit and during this admission, he has complained of some suprapubic discomfort. This prompted a CT scan of the abdomen and pelvis as well as a renal ultrasound which also performed an ultrasound of the bladder. The patient notes his suprapubic discomfort occurs with the urge to void but may last for several minutes to hours, after the initial urge passes. He also notes that he has significant urge incontinence that requires him to wear multiple absorbent undergarments daily. He describes this as only having occurred for the last 2 to 3 days, but he notes that he has been undergoing intermittent catheterization twice a day for the last several weeks or potentially since the stroke. Review of the CT scan performed on 05/15/2021 at 3:11 p.m. revealed essentially normal upper tracts and bladder that was only partially filled with a tiny focus of air in it, likely from recent catheterization. There was no significant bladder wall thickness and there was no upper tract calculus or hydronephrosis. The ultrasound revealed similar findings suggestive of a non concerning exam also performed on 05/15/2021. Physical Examination: General: The patient is alert and awake. There is no dyspnea or audible signs of respiratory distress. Abdomen: Soft, nontender, and nondistended. There are no masses palpable. At this time, he has no suprapubic tenderness. No urethral Rashid catheter is in place and his phallus is circumcised without lesion with an orthotopic meatus without discharge. Laboratory Data: On 05/16/2021, creatinine 1.78 with an eGFR of 37. 05/07/2021, urinalysis was unremarkable and a culture was also no growth from that urinalysis. Assessment And Recommendations: This is a 76-year-old gentleman with left middle cerebral artery stroke on 04/27/2021, now with significant volume urge incontinence, potentially of an overflow nature, currently undergoing CIC as an inpatient on the rehab unit with bladder spasms causing pelvic pain. I recommend at this point, performing a bladder scan postvoid residual assessment, after he senses the urgency to void and the incontinence that results. If he is emptying significantly well, postvoid residual less than 250 to 300 cc. Since there is no evidence of hydronephrosis, he would likely not require ongoing CIC. I explained to the patient that sometimes the urinary symptoms will evolve, as the stroke evolves and the brain attempts to heal itself, so a person can go from an overactive bladder type circumstance to one of urinary retention. As a result, they need to be monitored. Similarly, if he had retention that predominated initially, he may now be in a phase of overactivity. Hence, the recommendation to check a post urge incontinent postvoid residual and only catheterize if that residual is significant. May consider Flomax or Uroxatral to assist with completeness of emptying. Subsequently, the patient should see me in followup for definitive evaluation which will involve urodynamics and potentially cystoscopic evaluation. As far as the suprapubic pain, this is likely secondary to bladder spasms associated with the urge and the incontinence. If the pain is severe and bothersome, one might consider oxybutynin therapy, if there are no other contraindications, but we would like to ensure that he is emptying adequately before starting the oxybutynin. I would not start oxybutynin if his post urge incontinence episode residual is greater than 150 cc. LORAINE/TAMARA Voice ID: [id number] Report ID: [id number] SHENG
[2021-05-17] MEDS: PIPER TAZO 3.375 GM in NA CHLORIDE 0.9% 100 ML IV SCH (00:23)
[2021-05-17 04:31] LABS: Absolute Lymphocytes (CBC) 1.1 K/uL (0.7-4.9); Hematocrit 30.6 % (39.6-49.0); Lymphocytes % 11.5 % (15.3-44.8); MPV 7.3 fL (7.6-11.3); RBC Red Blood Cell Count 3.36 M/uL (4.33-5.43)
[2021-05-17 04:51] LABS: Potassium 4.7 mmol/L (3.5-5.1)
[2021-05-17] MEDS: METOPROLOL TAR 25 MG TAB PO SCH ×2 (05:02→17:41)
[2021-05-17] MEDS ORDERED: levoFLOXacin 750 MG TAB PO SCH (08:00)
[2021-05-17] MEDS: APIXABAN 2.5 MG TABLET PO SCH ×2 (08:20→19:58)
[2021-05-17] MEDS: FAMOTIDINE 20 MG TAB PO SCH ×2 (08:21→19:56)
[2021-05-17] MEDS: THIAMINE HCL 100 MG TABLET PO SCH (08:21)
[2021-05-17] MEDS: NICOTINE 7 MG/PAT TD SCH (08:21)
[2021-05-17] MEDS: lisinopriL 10 MG TAB PO SCH (08:21)
[2021-05-17] MEDS: MULTIVITAMINS 5 ML ORAL SYR FT SCH (08:23)
[2021-05-17] MEDS: levoFLOXacin 750 MG TAB PO SCH (12:47)
[2021-05-17] MEDS: JEVITY 1.5 CAL LIQUID 1,000 ML BOT FT SCH ×3 (14:00→20:02)
--- NOTE | 2021-05-17 17:46 | R.PN ---
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 Pt denied any Shortness of Breath. WBC improved to 9.8 with 72.2 % neutrophils. Hgb 10.1. Continue antibiotics Vancomycin 1 gm q 48 hrs, and Zosyn 3.375 mg q 8 hrs for 1 more day. Will start Levaquin 750 mg daily for 10 more days. Na 17 8, prealbumin 17.9, glucose 116, Technical Support Technician 1.69, PSA 0.35. UA is normal. Covid-19 test is negative 05/10/21. Eliquis 5 mg twice daily. He reported 10/10 pain in the penis today. Thanks for the help of Dr. Fregoso. Renal ultrasound is normal. No bladder wall thickening or mass. KUB: no bowel obstruction pattern. Ab domin and pelvic CT. Rectum dilated to 9 cm with solid stool, liquid stool and air. No anal mass. Patient should be upright and out of bed to urinate. Bed mobility done with standby assistance VITAL SIGNS Temperature: 97.4 F SBP/DBP: 131/68 Pulse: 54 Resp: 16 MEDICATION ALLERGIES: No Known Drug Allergies (NKDA) ENVIRONMENTAL ALLERGIES: None Known - Substance Allergies None Known - Other Allergies None Known NURSING: - Shower allowing shower - Bladder care per protocol - Skin care per protocol PRECAUTIONS: - Weight Bearing Precaution WBAT all extremities per pt's chart - Fall Precaution Bed alarm TABS alarm Wheel chair alarm - Skin Breakdown Risk skin assessments - Aspiration Precaution Pt on peg tube feeding - Safety Fall risk assist with xfers/STS - O2 saturations monitor O2 levels - Stroke Monitor signs and symptoms of stroke ACTIVITIES OOB only with supervision THERAPIES: - Dietary and Nutrition Adequate Nutrition. Nutritional Education. Nutritional Supplements. - Occupational Therapy Cognitive Retraining. Evaluate and Treat. ADL Training. Adaptive Equipment. Eating. Household Tasks. Patient/Family Education. Safety Awareness. Transfer Training. UE ROM. UE Strengthening. Visual Perce ptual Training. - Speech Therapy Cognitive Training. Expressive Language Skills. Memory Strategies. Receptive Language Skills. Speech Intelligibility Training. - Physical Therapy Balance Training. Evaluate and Treat. Gait Training. LE ROM. LE Strengthening. Medical Equipment Asse ssment and Evaluation. Mobility Training. Patient/Family Education. Safety Awareness. Transfer Traini mayra. PHYSICAL EXAM - Gen Alert and awake Lying in bed No apparent distress Oriented to: person, time, and place - Skin No breakdown No abnormalities - Eyes No abnormalities - ENMT No abnormalities - Neck No abnormalities - CVS RRR - Chest Mildly decreased breath sounds bilaterally. - Abd Soft - GI + bowel sounds Deferred - No abnormalities - Ext Mild right lower extremity edema. - MSK 4+/5 weakness in left upper and lower extremity - Neuro 4/5 strength right upper and lower extremities. - Psych No abnormalities - OTHER Ambulated 250' with contact guard assistance using a rolling walker. ASSESSMENT: On 04/27/2021 Pt. presented to [facility] with sudden onset of right-side weakness.Pt. is a 76 yo white male.On 04/27/2021 he was admitted to [facility] with diagnosis Acute L MCA stroke.His impairment category is Stroke 01 - Right Body (Left Brain) (01.2).Pre-morbidly, Pt. was independent /mod-I in Safety Awareness, Locomotion, Social Cognition, Transfers Control, and Balance; and he had good Transfers Control, Sphincter Control, Self-Care, Communication, and Endurance.Currently, he has deficits of Locomotion, Safety Awareness, Social Cognition, Balance, Transfers Control, Sphincter Con trol, Self-Care, Communication, and Endurance.Pt. is now referred to [facility] for acute in-patient rehabilitation in order to maximize patient's functional independence in activ ities of daily living, strength, ROM, and mobility.- Rehab Goal Patient has realistic goal of being discharged at assistance level partial assist to independent to r eside at Home with Family/Relatives. MDM/PLAN: - Physical Therapy Gait dysfunction - to improve, our physical therapists will perform initial evaluation of pt's statu s upon admission and devise an individualized program for Gait Training, and Wheel Chair mobility Inability to transfer - to improve, our physical therapists will perform initial evaluation of pt's status upon admission and devise an individualized program for Bed mobility Need for home safety evaluation - to improve, our physical therapists will perform initial evaluatio n of pt's status upon admission and devise an individualized program for Home Evaluation Need in caregiver upon discharge - to improve, our physical therapists will perform initial evaluati on of pt's status upon admission and devise an individualized program for Caregiver Training New precaution - to improve, our physical therapists will perform initial evaluation of pt's status upon admission and devise an individualized program for Patient precaution education Edema - to improve, our physical therapists will perform initial evaluation of pt's status upon admi ssion and devise an individualized program for Elevation Training, and Lymphedema Therapy Poor balance - to improve, our physical therapists will perform initial evaluation of pt's status up on admission and devise an individualized program for Balance Training Poor endurance - to improve, our physical therapists will perform initial evaluation of pt's status upon admission and devise an individualized program for Endurance Training Weakness - to improve, our physical therapists will perform initial evaluation of pt's status upon a dmission and devise an individualized program for Aquatic Therapy, Neuromuscular Reeducation, and Str engthening Achieving independence - to improve, our physical therapists will perform initial evaluation of pt's status upon admission and devise an individualized program for Community Reintegration Activities - Occupational Therapy ADL deficits - to improve, our occupation therapists will perform initial evaluation of pt's status upon admission and devise an individualized program for Bathing, Bed mobility, Community Reintegratio n, Cooking, Dressing, Eating, Fine Motor Skills, Grooming, Homemaking, Kitchen Mobility, Laundry, Pat ient Education, Safety Awareness, Splinting - Positioning, Transfers(Toilet, Tub, Shower), and Wheel Chair Management Cognitive deficits - to improve, our occupation therapists will perform initial evaluation of pt's s tatus upon admission and devise an individualized program for Cognition - orientation Need for mall plant caretaker - to improve, our occupation therapists will perform initial evaluation of pt's status upon admission and devise an individualized program for Caregiver Training Weakness - to improve, our occupation therapists will perform initial evaluation of pt's status upon admission and devise an individualized program for Aquatic Therapy, Balance, Endurance, UE ROM, and UE strengthening - Other See attached MAR (Medication Administration Record) - Diet Type Continue NPO - Diet - Liquid Texture Continue Regular - Tube Feed Continue N/A - Bladder care per protocol - Skin Breakdown Risk skin assessments - Aspiration Precaution Pt on peg tube feeding - Weight Bearing Precaution WBAT all extremities - Fall Precaution Bed alarm TABS alarm Wheel chair alarm - Skin care per protocol - Diet - Solid Texture Continue Regular - Shower allowing shower - Safety Fall risk assist with xfers/STS - O2 saturations monitor O2 levels - Stroke Monitor signs and symptoms of stroke for Dementia, TBI, Stroke, or others FUNCTIONAL STATUS: UPDATED AT WEEKLY TEAM CONFERENCE - Bladder Same accident frequency: 7-Ind - No accidents in the past 7 days - Bowel Same accident frequency: 7-Ind - No accidents in the past 7 days - Walking Same score based on distance walked: 0(N/A) - Wheelchair Same score based on distance traveled: 0(N/A) FUNCTIONAL STATUS: - Self-Care A. Eating Bradley B. Grooming sup C. Bathing modA D. Dressing - Upper Bradley E. Dressing - Lower modA F. Toileting modA - Sphincter Control G. Bladder control sup H. Bowel control sup - Transfers Control I. Bed/Chair/Wheelchair Bradley J. Toilet Bradley K. Tub/Shower modA - Locomotion L. Walk/Wheelchair (B) Bradley M. Stairs maxA - Communication N. Comprehension (B) Bradley O. Expression (B) rBadley - Social Cognition P. Social Interaction sup Q. Problem Solving sup R. Memory sup - Endurance Fair - Balance Fair - Safety Awareness Fair QI SCORES: - Self-Care A. Eating 01-Dependent B. Oral hygiene 03-Partial/moderate assistance C. Toileting hygiene 02-Substantial/maximal assistance E. Shower/bathe self 02-Substantial/maximal assistance F. Upper body dressing 03-Partial/moderate assistance G. Lower body dressing 02-Substantial/maximal assistance H. Putting on/taking off footwear 02-Substantial/maximal assistance - Mobility A. Roll left and right 03-Partial/moderate assistance B. Sit to lying 03-Partial/moderate assistance C. Lying to sitting on side of bed 03-Partial/moderate assistance D. Sit to stand 03-Partial/moderate assistance E. Chair/[id number] transfer 03-Partial/moderate assistance F. Toilet transfer 03-Partial/moderate assistance G. Car transfer 88-Not attempted due to medical condition or safety concerns I. Walk 10 feet 88-Not attempted due to medical condition or safety concerns J. Walk 50 feet with two turns 88-Not attempted due to medical condition or safety concerns K. Walk 150 feet 88-Not attempted due to medical condition or safety concerns L. Walking 10 feet on uneven surfaces 88-Not attempted due to medical condition or safety concerns M. 1 step (curb) 88-Not attempted due to medical condition or safety concerns N. 4 steps 88-Not attempted due to medical condition or safety concerns O. 12 steps 88-Not attempted due to medical condition or safety concerns P. Picking up object R. Wheel 50 feet with two turns 88-Not attempted due to medical condition or safety concerns S. Wheel 150 feet 88-Not attempted due to medical condition or safety concerns - Bladder and Bowel Bladder continence Bowel continence - Endurance Fair - Balance Fair - Safety Awareness Fair CURRENT [facility]. 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
[2021-05-17 19:29] LABS: Urine Appearance CLEAR (Clear); Urine Bilirubin NEGATIVE (Negative); Urine Blood NEGATIVE (Negative); Urine Color YELLOW (Yellow); Urine Glucose NEGATIVE (Negative); Urine Protein NEGATIVE (Negative); Urine Specific Gravity 1.015 (1.005-1.030); Urine Urobilinogen 0.2 mg/dL (0.2-1.0); Urine pH 7.5 (5.0-7.0)
[2021-05-17 19:45] LABS: Urine Bacteria <20 /HPF (NONE SEEN); Urine RBC <5 /HPF (NONE SEEN)
[2021-05-17] MEDS: DOXAZOSIN 2 MG TAB PO SCH (19:56)
[2021-05-17] MEDS: ROSUVASTATIN 10 MG TAB PO SCH (19:58)
[2021-05-17] MEDS: ACETAMINOPHEN 500 MG TAB PO PRN ×2 (19:58→23:29)
[2021-05-17] MEDS: MELATONIN 3 MG TABLET PO SCH (19:58)
[2021-05-18] MEDS: ACETAMINOPHEN 500 MG TAB PO PRN ×2 (04:15→12:03)
[2021-05-18 04:40] LABS: Absolute Lymphocytes (CBC) 1.4 K/uL (0.7-4.9); Lymphocytes % 15.2 % (15.3-44.8); MPV 7.7 fL (7.6-11.3)
[2021-05-18 04:51] LABS: Albumin 2.1 g/dL (3.4-5.0); Magnesium 2.1 mg/dL (1.8-2.4); Phosphorus 3.4 mg/dL (2.5-4.9); Potassium 4.4 mmol/L (3.5-5.1); Prealbumin 12.5 mg/dL (20-40)
[2021-05-18] MEDS: METOPROLOL TAR 25 MG TAB PO SCH ×2 (05:12→17:31)
[2021-05-18] MEDS: FAMOTIDINE 20 MG TAB PO SCH ×2 (07:14→20:12)
[2021-05-18] MEDS: NICOTINE 7 MG/PAT TD SCH (07:15)
[2021-05-18] MEDS: THIAMINE HCL 100 MG TABLET PO SCH (07:15)
[2021-05-18] MEDS: JEVITY 1.5 CAL LIQUID 1,000 ML BOT FT SCH ×5 (07:15→20:14)
[2021-05-18] MEDS: APIXABAN 2.5 MG TABLET PO SCH ×2 (07:15→20:12)
[2021-05-18] MEDS: lisinopriL 10 MG TAB PO SCH (07:16)
[2021-05-18] MEDS: MULTIVITAMINS 5 ML ORAL SYR FT SCH (07:17)
--- NOTE | 2021-05-18 18:04 | R.PN ---
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 Pt denied any Shortness of Breath. Eliquis 5 mg twice daily. Patient states that pain is under control. Renal ultrasound is normal. No bladder wall thickening or mass. KUB: no bowel obstruction pattern. Ab domin and pelvic CT. Rectum dilated to 9 cm with solid stool, liquid stool and air. No anal mass. Patient should be upright and out of bed to urinate. Bed mobility done with standby assistance VITAL SIGNS Temperature: 97.8 F SBP/DBP: 125/58 Pulse: 82 Resp: 16 MEDICATION ALLERGIES: No Known Drug Allergies (NKDA) ENVIRONMENTAL ALLERGIES: None Known - Substance Allergies None Known - Other Allergies None Known NURSING: - Shower allowing shower - Bladder care per protocol - Skin care per protocol PRECAUTIONS: - Weight Bearing Precaution WBAT all extremities per pt's chart - Fall Precaution Bed alarm TABS alarm Wheel chair alarm - Skin Breakdown Risk skin assessments - Aspiration Precaution Pt on peg tube feeding - Safety Fall risk assist with xfers/STS - O2 saturations monitor O2 levels - Stroke Monitor signs and symptoms of stroke ACTIVITIES OOB only with supervision THERAPIES: - Dietary and Nutrition Adequate Nutrition. Nutritional Education. Nutritional Supplements. - Occupational Therapy Cognitive Retraining. Evaluate and Treat. ADL Training. Adaptive Equipment. Eating. Household Tasks. Patient/Family Education. Safety Awareness. Transfer Training. UE ROM. UE Strengthening. Visual Perce ptual Training. - Speech Therapy Cognitive Training. Expressive Language Skills. Memory Strategies. Receptive Language Skills. Speech Intelligibility Training. - Physical Therapy Balance Training. Evaluate and Treat. Gait Training. LE ROM. LE Strengthening. Medical Equipment Asse ssment and Evaluation. Mobility Training. Patient/Family Education. Safety Awareness. Transfer Traini ng. PHYSICAL EXAM - Gen Alert and awake Lying in bed No apparent distress Oriented to: person, time, and place - Skin No breakdown No abnormalities - Eyes No abnormalities - ENMT No abnormalities - Neck No abnormalities - CVS RRR - Chest Mildly decreased breath sounds bilaterally. - Abd Soft - GI + bowel sounds Deferred - No abnormalities - Ext Mild right lower extremity edema. - MSK 4+/5 weakness in left upper and lower extremity - Neuro 4/5 strength right upper and lower extremities. - Psych No abnormalities - OTHER Ambulated 250' with contact guard assistance using a rolling walker. ASSESSMENT: On 04/27/2021 Pt. presented to [facility] with sudden onset of right-side weakness.Pt. is a 76 yo white male.On 04/27/2021 he was admitted to [facility] with diagnosis Acute L MCA stroke.His impairment category is Stroke 01 - Right Body (Left Brain) (01.2).Pre-morbidly, Pt. was independent /mod-I in Safety Awareness, Locomotion, Social Cognition, Transfers Control, and Balance; and he had good Transfers Control, Sphincter Control, Self-Care, Communication, and Endurance.Currently, he has deficits of Locomotion, Safety Awareness, Social Cognition, Balance, Transfers Control, Sphincter Con trol, Self-Care, Communication, and Endurance.Pt. is now referred to [facility] for acute in-patient rehabilitation in order to maximize patient's functional independence in activ ities of daily living, strength, ROM, and mobility.- Rehab Goal Patient has realistic goal of being discharged at assistance level partial assist to independent to r eside at Home with Family/Relatives. MDM/PLAN: - Physical Therapy Gait dysfunction - to improve, our physical therapists will perform initial evaluation of pt's statu s upon admission and devise an individualized program for Gait Training, and Wheel Chair mobility Inability to transfer - to improve, our physical therapists will perform initial evaluation of pt's status upon admission and devise an individualized program for Bed mobility Need for home safety evaluation - to improve, our physical therapists will perform initial evaluatio n of pt's status upon admission and devise an individualized program for Home Evaluation Need in caregiver upon discharge - to improve, our physical therapists will perform initial evaluati on of pt's status upon admission and devise an individualized program for Caregiver Training New precaution - to improve, our physical therapists will perform initial evaluation of pt's status upon admission and devise an individualized program for Patient precaution education Edema - to improve, our physical therapists will perform initial evaluation of pt's status upon admi ssion and devise an individualized program for Elevation Training, and Lymphedema Therapy Poor balance - to improve, our physical therapists will perform initial evaluation of pt's status up on admission and devise an individualized program for Balance Training Poor endurance - to improve, our physical therapists will perform initial evaluation of pt's status upon admission and devise an individualized program for Endurance Training Weakness - to improve, our physical therapists will perform initial evaluation of pt's status upon a dmission and devise an individualized program for Aquatic Therapy, Neuromuscular Reeducation, and Str engthening Achieving independence - to improve, our physical therapists will perform initial evaluation of pt's status upon admission and devise an individualized program for Community Reintegration Activities - Occupational Therapy ADL deficits - to improve, our occupation therapists will perform initial evaluation of pt's status upon admission and devise an individualized program for Bathing, Bed mobility, Community Reintegratio n, Cooking, Dressing, Eating, Fine Motor Skills, Grooming, Homemaking, Kitchen Mobility, Laundry, Pat ient Education, Safety Awareness, Splinting - Positioning, Transfers(Toilet, Tub, Shower), and Wheel Chair Management Cognitive deficits - to improve, our occupation therapists will perform initial evaluation of pt's s tatus upon admission and devise an individualized program for Cognition - orientation Need for healthcare technician - to improve, our occupation therapists will perform initial evaluation of pt's status upon admission and devise an individualized program for Caregiver Training Weakness - to improve, our occupation therapists will perform initial evaluation of pt's status upon admission and devise an individualized program for Aquatic Therapy, Balance, Endurance, UE ROM, and UE strengthening - Other See attached MAR (Medication Administration Record) - Diet Type Continue NPO - Diet - Liquid Texture Continue Regular - Tube Feed Continue N/A - Bladder care per protocol - Skin Breakdown Risk skin assessments - Aspiration Precaution Pt on peg tube feeding - Weight Bearing Precaution WBAT all extremities - Fall Precaution Bed alarm TABS alarm Wheel chair alarm - Skin care per protocol - Diet - Solid Texture Continue Regular - Shower allowing shower - Safety Fall risk assist with xfers/STS - O2 saturations monitor O2 levels - Stroke Monitor signs and symptoms of stroke for Dementia, TBI, Stroke, or others FUNCTIONAL STATUS: UPDATED AT WEEKLY TEAM CONFERENCE - Bladder Same accident frequency: 7-Ind - No accidents in the past 7 days - Bowel Same accident frequency: 7-Ind - No accidents in the past 7 days - Walking Same score based on distance walked: 0(N/A) - Wheelchair Same score based on distance traveled: 0(N/A) FUNCTIONAL STATUS: - Self-Care A. Eating Bradley B. Grooming sup C. Bathing modA D. Dressing - Upper Bradley E. Dressing - Lower modA F. Toileting modA - Sphincter Control G. Bladder control sup H. Bowel control sup - Transfers Control I. Bed/Chair/Wheelchair Bradley J. Toilet Bradley K. Tub/Shower modA - Locomotion L. Walk/Wheelchair (B) Bradley M. Stairs maxA - Communication N. Comprehension (B) Bradley O. Expression (B) Bradley - Social Cognition P. Social Interaction sup Q. Problem Solving sup R. Memory sup - Endurance Fair - Balance Fair - Safety Awareness Fair QI SCORES: - Self-Care A. Eating 01-Dependent B. Oral hygiene 03-Partial/moderate assistance C. Toileting hygiene 02-Substantial/maximal assistance E. Shower/bathe self 02-Substantial/maximal assistance F. Upper body dressing 03-Partial/moderate assistance G. Lower body dressing 02-Substantial/maximal assistance H. Putting on/taking off footwear 02-Substantial/maximal assistance - Mobility A. Roll left and right 03-Partial/moderate assistance B. Sit to lying 03-Partial/moderate assistance C. Lying to sitting on side of bed 03-Partial/moderate assistance D. Sit to stand 03-Partial/moderate assistance E. Chair/myn-co-[id number] transfer 03-Partial/moderate assistance F. Toilet transfer 03-Partial/moderate assistance G. Car transfer 88-Not attempted due to medical condition or safety concerns I. Walk 10 feet 88-Not attempted due to medical condition or safety concerns J. Walk 50 feet with two turns 88-Not attempted due to medical condition or safety concerns K. Walk 150 feet 88-Not attempted due to medical condition or safety concerns L. Walking 10 feet on uneven surfaces 88-Not attempted due to medical condition or safety concerns M. 1 step (curb) 88-Not attempted due to medical condition or safety concerns N. 4 steps 88-Not attempted due to medical condition or safety concerns O. 12 steps 88-Not attempted due to medical condition or safety concerns P. Picking up object R. Wheel 50 feet with two turns 88-Not attempted due to medical condition or safety concerns S. Wheel 150 feet 88-Not attempted due to medical condition or safety concerns - Bladder and Bowel Bladder continence Bowel continence - Endurance Fair - Balance Fair - Safety Awareness Fair CURRENT [facility]. 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
[2021-05-18] MEDS: TERAZOSIN HCL 1 MG CAP PO SCH (20:12)
[2021-05-18] MEDS: ROSUVASTATIN 10 MG TAB PO SCH (20:12)
[2021-05-18] MEDS: OXYBUTYNIN CHLORIDE 5 MG TAB PO SCH (20:12)
[2021-05-18] MEDS: MELATONIN 3 MG TABLET PO SCH (20:14)
[2021-05-19] MEDS: METOPROLOL TAR 25 MG TAB PO SCH ×2 (05:09→17:27)
[2021-05-19] MEDS: FAMOTIDINE 20 MG TAB PO SCH ×2 (06:26→20:48)
[2021-05-19] MEDS: APIXABAN 2.5 MG TABLET PO SCH ×2 (06:27→20:48)
[2021-05-19] MEDS: THIAMINE HCL 100 MG TABLET PO SCH (06:27)
[2021-05-19] MEDS: JEVITY 1.5 CAL LIQUID 1,000 ML BOT FT SCH ×5 (06:28→20:49)
[2021-05-19] MEDS: MULTIVITAMINS 5 ML ORAL SYR FT SCH (06:28)
[2021-05-19] MEDS: lisinopriL 10 MG TAB PO SCH (08:00)
--- NOTE | 2021-05-19 10:01 | P.RH.PN ---
Expected Discharge Date: 05/22/21 Discharge Disposition Plan: Home Family Support: Yes Vital Signs: Last Vital Signs Temp 96.6 F L 05/19/21 07:48 Pulse 65 05/19/21 08:00 Resp 16 05/19/21 07:48 BP 116/45 L 05/19/21 08:00 Pulse Ox 94 05/19/21 07:48 Laboratory: Laboratory Last Values WBC 8.90 K/uL (4.3-10.9) 05/18/21 04:05 RBC 3.30 M/uL (4.33-5.43) L 05/18/21 04:05 Hgb 9.8 g/dL (13.6-17.9) L 05/18/21 04:05 Hct 30.0 % (39.6-49.0) L 05/18/21 04:05 MCV 90.7 fL (80-100) 05/18/21 04:05 MCH 29.6 pg (27.0-35.0) 05/18/21 04:05 MCHC 32.6 g/dL (32.0-36.0) 05/18/21 04:05 RDW 14.1 % (12.1-15.2) 05/18/21 04:05 Plt Count 248 K/uL (152-406) 05/18/21 04:05 MPV 7.7 fL (7.6-11.3) 05/18/21 04:05 Neutrophils % 67.2 % (41.7-73.7) 05/18/21 04:05 Lymphocytes % 15.2 % (15.3-44.8) L 05/18/21 04:05 Monocytes % 12.6 % (3.3-12.3) H 05/18/21 04:05 Eosinophils % 4.2 % (0-4.4) 05/18/21 04:05 Basophils % 0.8 % (0-1.3) 05/18/21 04:05 Absolute Neutrophils 6.0 K/uL (1.8-8.0) 05/18/21 04:05 Absolute Lymphocytes 1.4 K/uL (0.7-4.9) 05/18/21 04:05 Absolute Monocytes 1.1 K/uL (0.1-1.3) 05/18/21 04:05 Absolute Eosinophils 0.4 K/uL (0-0.5) 05/18/21 04:05 Absolute Basophils 0.1 K/uL (0-0.5) 05/18/21 04:05 Platelet Estimate Adeq 05/12/21 05:45 Morphology Comment Not seen (NOT SEEN) 05/12/21 05:45 Sodium 135 mmol/L (136-145) L 05/18/21 04:05 Potassium 4.4 mmol/L (3.5-5.1) 05/18/21 04:05 Chloride 101 mmol/L (98-107) 05/18/21 04:05 Carbon Dioxide 31 mmol/L (21-32) 05/18/21 04:05 BUN 53 mg/dL (7-18) H 05/18/21 04:05 Creatinine 1.60 mg/dL (0.55-1.3) H 05/18/21 04:05 Estimated GFR 42 mL/min (=/>90) L 05/18/21 04:05 Glucose 84 mg/dL (74-106) 05/18/21 04:05 Lactic Acid 0.7 mmol/L (0.4-2.0) 05/12/21 14:26 Calcium 8.9 mg/dL (8.5-10.1) 05/18/21 04:05 Phosphorus 3.4 mg/dL (2.5-4.9) 05/18/21 04:05 Magnesium 2.1 mg/dL (1.8-2.4) D 05/18/21 04:05 Lactate Dehydrogenase 210 U/L (87-241) 05/12/21 14:26 Albumin 2.1 g/dL (3.4-5.0) L 05/18/21 04:05 Prealbumin 12.5 mg/dL (20-40) L 05/18/21 04:05 Prostate Specific Ag 0.35 ng/mL (0-4.00) 05/16/21 00:50 Procalcitonin 0.07 ng/mL (<0.050) H 05/12/21 14:26 Urine Color Yellow (Yellow) 05/17/21 16:10 Urine Appearance Clear (Clear) 05/17/21 16:10 Urine pH 7.5 (5.0-7.0) H 05/17/21 16:10 Ur Specific [place] 1.015 (1.005-1.030) 05/17/21 16:10 Glucose (UA)(Auto) Negative (Negative) 05/17/21 16:10 Urine Ketones Negative (Negative) 05/17/21 16:10 Urine Blood Negative (Negative) 05/17/21 16:10 Urine Nitrite Negative (Negative) 05/17/21 16:10 Urine Bilirubin Negative (Negative) 05/17/21 16:10 Urine Urobilinogen 0.2 mg/dL (0.2-1.0) 05/17/21 16:10 Ur Leukocyte Esterase Negative (Negative) 05/17/21 16:10 Urine RBC <5 /HPF (NONE SEEN) 05/17/21 16:10 Urine WBC <5 /HPF (<5) 05/17/21 16:10 Ur Squamous Epith Cells <5 /HPF (NONE SEEN) 05/17/21 16:10 Urine Bacteria <20 /HPF (NONE SEEN) 05/17/21 16:10 Urine Culture Reflexed Not needed 05/17/21 16:10 Urine Total Protein Negative (Negative) 05/17/21 16:10 Vancomycin Trough 15.9 ug/mL (5.0-20.0) 05/16/21 00:50 SARS-CoV-2 Rap RNA(RT-PCR) Negative (NEGATIVE) 05/19/21 07:30 Smear Scan Ok (OK) 05/12/21 05:45 Weight: 107 lb 14.4 oz Wound Present: No Closed Surgical Incision Present: No Negative Pressure Wound Therapy Present: No Physician Update: He will be transferred to [facility] on Saturday. His WBCs are normal x 3. Repeat his chest x-ray on Saturday. He is making fair overall progress but require much more therapy. He is on bolus feeds with water added. Walking 20' only and is poorly motibility. He is on oxybutrin and hytrin with good re sponse. Comment: redness to sacral and anal area noted Functional Improvement: Patient is working hard to meet his goals. Patient has improved his balance and endurance. Summary: Patient's care plan and intermediate project manager goals have been reviewed and revised as necessary. Please see the Rehabilitation Signature page for all necessary signatures.
[2021-05-19] MEDS: NICOTINE 7 MG/PAT TD SCH (11:29)
[2021-05-19] MEDS ORDERED: NA CHLORIDE 0.9% 1,000 ML IV SCH (12:00)
[2021-05-19] MEDS: levoFLOXacin 750 MG TAB PO SCH (13:04)
--- NOTE | 2021-05-19 17:53 | RAD REPORT ---
EXAM DESCRIPTION: RAD - Chest Single View - 05/19/2021 5:20 pm CLINICAL HISTORY: compare with previous xray COMPARISON: Abdomen 1 View (KUB) dated 05/15/2021; Chest Single View dated 05/12/2021; Chest Single Vi ew dated 05/09/2021; Chest Pa And Lat (2 Views) dated 06/29/2019; Abdomen Pelvis Wo Contrast dated 04/29 FINDINGS: Lines: None. Lungs: Patchy airspace disease in lung bases is similar. Pleural: No significant pleural effusions or pneumothorax. Cardiac: The heart size is within normal limits. Bones: No acute fractures. Other: Air-filled colon in the right upper quadrant simulates free air. IMPRESSION: Basilar airspace disease, left greater than right, is similar prior and may reflect atel ectasis, aspiration, and/or pneumonia.
[2021-05-19] MEDS ORDERED: TERAZOSIN HCL 1 MG CAP ONE (20:08)
[2021-05-19] MEDS: TERAZOSIN HCL 1 MG CAP PO SCH (20:48)
[2021-05-19] MEDS: ROSUVASTATIN 10 MG TAB PO SCH (20:48)
[2021-05-19] MEDS: OXYBUTYNIN CHLORIDE 5 MG TAB PO SCH (20:49)
[2021-05-19] MEDS: MELATONIN 3 MG TABLET PO SCH (20:50)
[2021-05-19] MEDS: ACETAMINOPHEN 500 MG TAB PO PRN (20:50)
[2021-05-20] MEDS: METOPROLOL TAR 25 MG TAB PO SCH ×2 (05:34→17:14)
[2021-05-20] MEDS ORDERED: PANTOPRAZOLE 40MG TABLET PO SCH (06:30)
[2021-05-20 06:39] LABS: Absolute Lymphocytes (CBC) 1.2 K/uL (0.7-4.9); Hematocrit 28.2 % (39.6-49.0); Lymphocytes % 17.6 % (15.3-44.8); MPV 7.8 fL (7.6-11.3); RBC Red Blood Cell Count 3.11 M/uL (4.33-5.43)
[2021-05-20] MEDS: JEVITY 1.5 CAL LIQUID 1,000 ML BOT FT SCH ×4 (07:30→17:13)
[2021-05-20 07:56] LABS: Potassium 4.7 mmol/L (3.5-5.1)
[2021-05-20] MEDS ORDERED: FE SULF/FA/VIT B COMP & C TAB PO SCH (08:00)
[2021-05-20] MEDS: MULTIVITAMINS 5 ML ORAL SYR FT SCH (08:15)
[2021-05-20] MEDS: APIXABAN 2.5 MG TABLET PO SCH ×2 (08:15→20:39)
[2021-05-20] MEDS: NICOTINE 7 MG/PAT TD SCH (08:15)
[2021-05-20] MEDS: FAMOTIDINE 20 MG TAB PO SCH ×2 (08:15→20:39)
[2021-05-20] MEDS: THIAMINE HCL 100 MG TABLET PO SCH (08:15)
[2021-05-20] MEDS: lisinopriL 10 MG TAB PO SCH (08:17)
[2021-05-20] MEDS ORDERED: ZINC OXIDE 20% OINTMENT 60gm TOP SCH (20:00)
[2021-05-20] MEDS: TERAZOSIN HCL 1 MG CAP PO SCH (20:39)
[2021-05-20] MEDS: OXYBUTYNIN CHLORIDE 5 MG TAB PO SCH (20:40)
[2021-05-20] MEDS: MELATONIN 3 MG TABLET PO SCH (20:40)
[2021-05-20] MEDS: JEVITY 1.5 CAL LIQUID 1,000 ML BOT RTH SCH (20:40)
[2021-05-20] MEDS: ACETAMINOPHEN 500 MG TAB PO PRN (20:40)
[2021-05-20] MEDS: ROSUVASTATIN 10 MG TAB PO SCH (20:41)
[2021-05-21] MEDS: JEVITY 1.5 CAL LIQUID 1,000 ML BOT FT SCH ×4 (05:00→16:58)
[2021-05-21] MEDS: METOPROLOL TAR 25 MG TAB PO SCH ×2 (05:01→16:57)
[2021-05-21] MEDS: PANTOPRAZOLE 40MG TABLET PO SCH (05:01)
[2021-05-21] MEDS: lisinopriL 10 MG TAB PO SCH (08:00)
[2021-05-21] MEDS: MULTIVITAMINS 5 ML ORAL SYR FT SCH (08:10)
[2021-05-21] MEDS: THIAMINE HCL 100 MG TABLET PO SCH (08:11)
[2021-05-21] MEDS: FAMOTIDINE 20 MG TAB PO SCH ×2 (08:11→20:18)
[2021-05-21] MEDS: APIXABAN 2.5 MG TABLET PO SCH ×2 (08:11→20:18)
[2021-05-21] MEDS: NICOTINE 7 MG/PAT TD SCH (08:11)
[2021-05-21] MEDS: levoFLOXacin 750 MG TAB PO SCH (12:00)
[2021-05-21] MEDS: ROSUVASTATIN 10 MG TAB PO SCH (20:19)
[2021-05-21] MEDS: JEVITY 1.5 CAL LIQUID 1,000 ML BOT RTH SCH (20:20)
[2021-05-21] MEDS: OXYBUTYNIN CHLORIDE 5 MG TAB PO SCH (20:20)
[2021-05-21] MEDS: MELATONIN 3 MG TABLET PO SCH (20:20)
[2021-05-21] MEDS ORDERED: TERAZOSIN HCL 1 MG CAP ONE (20:40)
[2021-05-21] MEDS: TERAZOSIN HCL 1 MG CAP PO SCH (20:50)
[2021-05-22] MEDS: METOPROLOL TAR 25 MG TAB PO SCH (05:30)
[2021-05-22] MEDS: PANTOPRAZOLE 40MG TABLET PO SCH (05:31)
[2021-05-22] MEDS: JEVITY 1.5 CAL LIQUID 1,000 ML BOT FT SCH ×4 (05:36→16:30)
[2021-05-22 07:30] VITALS: TEMP 98
[2021-05-22] MEDS: lisinopriL 10 MG TAB PO SCH (08:00)
[2021-05-22] MEDS: APIXABAN 2.5 MG TABLET PO SCH (08:23)
[2021-05-22] MEDS: THIAMINE HCL 100 MG TABLET PO SCH (08:23)
[2021-05-22] MEDS: MULTIVITAMINS 5 ML ORAL SYR FT SCH (08:24)
[2021-05-22] MEDS: NICOTINE 7 MG/PAT TD SCH (08:24)
[2021-05-22] MEDS: FAMOTIDINE 20 MG TAB PO SCH (08:24)
[2021-05-22 08:25] VITALS: BP 116/68
[2021-05-22 09:43] VITALS: O2SAT 98
[2021-05-22] MEDS: LOPERAMIDE HCL 2 MG CAPSULE PO PRN (14:03)
[2021-05-22] MEDS: ACETAMINOPHEN 500 MG TAB PO PRN (16:27)
--- NOTE | 2021-05-22 17:58 | R.PN ---
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 Pt denied any Shortness of Breath. Eliquis 5 mg twice daily. Patient states that pain is under control. Renal ultrasound is normal. No bladder wall thickening or mass. KUB: no bowel obstruction pattern. Ab domin and pelvic CT. Rectum dilated to 9 cm with solid stool, liquid stool and air. No anal mass. Patient should be upright and out of bed to urinate. Bed mobility done with standby assistance WBC 6.9, Hgb 9.2, Na 133, [employer] Advisor 1.49, prealbumin 12.5, Psa 0.35. Covid-19 test in negative today. Ambulated 600' with supervision using a rolling walker and 2 L of O2. Also self-propelled wheelchair 250' independently. VITAL SIGNS Temperature: 98.0 F SBP/DBP: 116/68 Pulse: 57 Resp: 16 MEDICATION ALLERGIES: No Known Drug Allergies (NKDA) ENVIRONMENTAL ALLERGIES: None Known - Substance Allergies None Known - Other Allergies None Known NURSING: - Shower allowing shower - Bladder care per protocol - Skin care per protocol PRECAUTIONS: - Weight Bearing Precaution WBAT all extremities per pt's chart - Fall Precaution Bed alarm TABS alarm Wheel chair alarm - Skin Breakdown Risk skin assessments - Aspiration Precaution Pt on peg tube feeding - Safety Fall risk assist with xfers/STS - O2 saturations monitor O2 levels - Stroke Monitor signs and symptoms of stroke ACTIVITIES OOB only with supervision THERAPIES: - Dietary and Nutrition Adequate Nutrition. Nutritional Education. Nutritional Supplements. - Occupational Therapy Cognitive Retraining. Evaluate and Treat. ADL Training. Adaptive Equipment. Eating. Household Tasks. Patient/Family Education. Safety Awareness. Transfer Training. UE ROM. UE Strengthening. Visual Perce ptual Training. - Speech Therapy Cognitive Training. Expressive Language Skills. Memory Strategies. Receptive Language Skills. Speech Intelligibility Training. - Physical Therapy Balance Training. Evaluate and Treat. Gait Training. LE ROM. LE Strengthening. Medical Equipment Asse ssment and Evaluation. Mobility Training. Patient/Family Education. Safety Awareness. Transfer Traini ng. PHYSICAL EXAM - Gen Alert and awake Lying in bed No apparent distress Oriented to: person, time, and place - Skin No breakdown No abnormalities - Eyes No abnormalities - ENMT No abnormalities - Neck No abnormalities - CVS RRR - Chest Mildly decreased breath sounds bilaterally. - Abd Soft - GI + bowel sounds Deferred - No abnormalities - Ext Mild right lower extremity edema. - MSK 4+/5 weakness in left upper and lower extremity - Neuro 4/5 strength right upper and lower extremities. - Psych No abnormalities - OTHER Ambulated 250' with contact guard assistance using a rolling walker. ASSESSMENT: On 04/27/2021 Pt. presented to [facility] with sudden onset of right-side weakness.Pt. is a 76 yo white male.On 04/27/2021 he was admitted to [facility] with diagnosis Acute L MCA stroke.His impairment category is Stroke 01 - Right Body (Left Brain) (01.2).Pre-morbidly, Pt. was independent /mod-I in Safety Awareness, Locomotion, Social Cognition, Transfers Control, and Balance; and he had good Transfers Control, Sphincter Control, Self-Care, Communication, and Endurance.Currently, he has deficits of Locomotion, Safety Awareness, Social Cognition, Balance, Transfers Control, Sphincter Con trol, Self-Care, Communication, and Endurance.Pt. is now referred to [facility] for acute in-patient rehabilitation in order to maximize patient's functional independence in activ ities of daily living, strength, ROM, and mobility.- Rehab Goal Patient has realistic goal of being discharged at assistance level partial assist to independent to r eside at Home with Family/Relatives. MDM/PLAN: - Physical Therapy Gait dysfunction - to improve, our physical therapists will perform initial evaluation of pt's statu s upon admission and devise an individualized program for Gait Training, and Wheel Chair mobility Inability to transfer - to improve, our physical therapists will perform initial evaluation of pt's status upon admission and devise an individualized program for Bed mobility Need for home safety evaluation - to improve, our physical therapists will perform initial evaluatio n of pt's status upon admission and devise an individualized program for Home Evaluation Need in caregiver upon discharge - to improve, our physical therapists will perform initial evaluati on of pt's status upon admission and devise an individualized program for Caregiver Training New precaution - to improve, our physical therapists will perform initial evaluation of pt's status upon admission and devise an individualized program for Patient precaution education Edema - to improve, our physical therapists will perform initial evaluation of pt's status upon admi ssion and devise an individualized program for Elevation Training, and Lymphedema Therapy Poor balance - to improve, our physical therapists will perform initial evaluation of pt's status up on admission and devise an individualized program for Balance Training Poor endurance - to improve, our physical therapists will perform initial evaluation of pt's status upon admission and devise an individualized program for Endurance Training Weakness - to improve, our physical therapists will perform initial evaluation of pt's status upon a dmission and devise an individualized program for Aquatic Therapy, Neuromuscular Reeducation, and Str engthening Achieving independence - to improve, our physical therapists will perform initial evaluation of pt's status upon admission and devise an individualized program for Community Reintegration Activities - Occupational Therapy ADL deficits - to improve, our occupation therapists will perform initial evaluation of pt's status upon admission and devise an individualized program for Bathing, Bed mobility, Community Reintegratio n, Cooking, Dressing, Eating, Fine Motor Skills, Grooming, Homemaking, Kitchen Mobility, Laundry, Pat ient Education, Safety Awareness, Splinting - Positioning, Transfers(Toilet, Tub, Shower), and Wheel Chair Management Cognitive deficits - to improve, our occupation therapists will perform initial evaluation of pt's s tatus upon admission and devise an individualized program for Cognition - orientation Need for ambulatory care - to improve, our occupation therapists will perform initial evaluation of pt's status upon admission and devise an individualized program for Caregiver Training Weakness - to improve, our occupation therapists will perform initial evaluation of pt's status upon admission and devise an individualized program for Aquatic Therapy, Balance, Endurance, UE ROM, and UE strengthening - Other See attached MAR (Medication Administration Record) - Diet Type Continue NPO - Diet - Liquid Texture Continue Regular - Tube Feed Continue N/A - Bladder care per protocol - Skin Breakdown Risk skin assessments - Aspiration Precaution Pt on peg tube feeding - Weight Bearing Precaution WBAT all extremities - Fall Precaution Bed alarm TABS alarm Wheel chair alarm - Skin care per protocol - Diet - Solid Texture Continue Regular - Shower allowing shower - Safety Fall risk assist with xfers/STS - O2 saturations monitor O2 levels - Stroke Monitor signs and symptoms of stroke for Dementia, TBI, Stroke, or others FUNCTIONAL STATUS: UPDATED AT WEEKLY TEAM CONFERENCE - Bladder Same accident frequency: 7-Ind - No accidents in the past 7 days - Bowel Same accident frequency: 7-Ind - No accidents in the past 7 days - Walking Same score based on distance walked: 0(N/A) - Wheelchair Same score based on distance traveled: 0(N/A) FUNCTIONAL STATUS: - Self-Care A. Eating Bradley B. Grooming sup C. Bathing modA D. Dressing - Upper Bradley E. Dressing - Lower modA F. Toileting modA - Sphincter Control G. Bladder control sup H. Bowel control sup - Transfers Control I. Bed/Chair/Wheelchair Bradley J. Toilet Bradley K. Tub/Shower modA - Locomotion L. Walk/Wheelchair (B) Bradley M. Stairs maxA - Communication N. Comprehension (B) Bradley O. Expression (B) Bradley - Social Cognition P. Social Interaction sup Q. Problem Solving sup R. Memory sup - Endurance Fair - Balance Fair - Safety Awareness Fair QI SCORES: - Self-Care A. Eating 01-Dependent B. Oral hygiene 03-Partial/moderate assistance C. Toileting hygiene 02-Substantial/maximal assistance E. Shower/bathe self 02-Substantial/maximal assistance F. Upper body dressing 03-Partial/moderate assistance G. Lower body dressing 02-Substantial/maximal assistance H. Putting on/taking off footwear 02-Substantial/maximal assistance - Mobility A. Roll left and right 03-Partial/moderate assistance B. Sit to lying 03-Partial/moderate assistance C. Lying to sitting on side of bed 03-Partial/moderate assistance D. Sit to stand 03-Partial/moderate assistance E. Chair/[id number] transfer 03-Partial/moderate assistance F. Toilet transfer 03-Partial/moderate assistance G. Car transfer 88-Not attempted due to medical condition or safety concerns I. Walk 10 feet 88-Not attempted due to medical condition or safety concerns J. Walk 50 feet with two turns 88-Not attempted due to medical condition or safety concerns K. Walk 150 feet 88-Not attempted due to medical condition or safety concerns L. Walking 10 feet on uneven surfaces 88-Not attempted due to medical condition or safety concerns M. 1 step (curb) 88-Not attempted due to medical condition or safety concerns N. 4 steps 88-Not attempted due to medical condition or safety concerns O. 12 steps 88-Not attempted due to medical condition or safety concerns P. Picking up object R. Wheel 50 feet with two turns 88-Not attempted due to medical condition or safety concerns S. Wheel 150 feet 88-Not attempted due to medical condition or safety concerns - Bladder and Bowel Bladder continence Bowel continence - Endurance Fair - Balance Fair - Safety Awareness Fair CURRENT [facility]. DEFICITS: Self-Care, Mobility, Endurance, Balance, and Safety Awareness SIGNATURE PANEL: (GIS SCIENTIST)
== END 2021-05-22 16:55 | DRG 56 ==
LOC: 5TH 05-07 15:45
PROVIDERS: ADMIT Psychiatry & Neurology Neurology with Special Qualifications in Child Neurology; ATTEND Psychiatry & Neurology Neurology with Special Qualifications in Child Neurology
DX: I69.351 Hemiplegia and hemiparesis following cerebral infarction affecting right dominant side (principal); J69.0 Pneumonitis due to inhalation of food and vomit; I69.320 Aphasia following cerebral infarction; N32.89 Other specified disorders of bladder; I48.91 Unspecified atrial fibrillation; Z20.822 Contact with and (suspected) exposure to COVID-19
CPT/HCPCS: 36415; 71045; 74018; 74176; 76770; 80048; 80202; 81001; 81003; 82040; 82274; 82565; 83605; 83615; 83735; 84100; 84134; 84145; 84153; 85025; 87086; 87088; 92523; 92526; 97110; 97116; 97127; 97161; 97530; J2543; J3370; J7030; J7050; U0003

== ENCOUNTER 2021-07-11 12:03 | Inpatient (IN) | payer OTHER ==
--- OUTSIDE RECORDS SUMMARY | 2021-07-11 12:10 | XMS REPORT | Continuity of Care Document ---
:1945 Author Organization [facility] t Address [address] [place] [address] Care Team Providers Name Role Phone INES Attending Clinician Unavailable Payers Payer Name Policy Type Policy Number Effective Date Expiration Date S laurie [employer] OPEN CHOICE [id number] 2000 2024 PPO 00:00:00 00:00:00 MEDICARE PART A [id number] 2009 2024 AND B 00:00:00 00:00:00 Problems This patient has no known problems. Allergies, Adverse Reactions, Alerts This patient has no known allergies or adverse reactions. Medications This patient has no known medications. Procedures This patient has no known procedures. Encounters Start End Encounter Admission Attending Care Care Encounter Source Date/Time Date/Time Type Type Clinicians Facility Department ID 2021-05-26 Outpatient [facility] [id number] [place] 15:24:16 [facility] 2021-05-26 Outpatient [facility] [id number] [place] 15:24:15 [facility] 2021-05-24 Outpatient [facility] [id number] [facility] 12:00:28 [id number] 2020-02-25 2020-02-25 Outpatient [facility] [id number] [facility] Results This patient has no known results.
--- NOTE | 2021-07-11 12:42 | RAD REPORT ---
EXAM DESCRIPTION: CT - Ct Stroke Brain Wo Cont - 07/11/2021 12:29 pm CLINICAL HISTORY: APHASIA Headache, drowsiness, CVA COMPARISON: Abdomen Pelvis Wo Contrast dated 05/15/2021; Thorax Wo Con dated 06/29/2019 TECHNIQUE: All CT scans are performed using dose optimization technique as appropriate and may inclu de automated exposure control or mA/KV adjustment according to patient size. FINDINGS: No intracranial hemorrhage, hydrocephalus or extra-axial fluid collection.Large area of gl iosis is seen right occipital lobe compatible with old infarction. 5 cm area of intermediate diminish ed density is seen left frontotemporal of both left parietal region compatible with subacute infarct. The paranasal sinuses and mastoids are clear. The calvarium is intact. IMPRESSION: Large nonhemorrhagic areas of subacute infarct are seen in the left cerebral hemisphere as detailed. The findings were discussed with Dr. Lopez On 07/11/2021 at 12:37 p.m. by telephone.
[2021-07-11 12:50] LABS: Absolute Lymphocytes (CBC) 1.2 K/uL (0.7-4.9); Lymphocytes % 17.8 % (15.3-44.8); MPV 6.9 fL (7.6-11.3)
[2021-07-11 12:56] LABS: Protime INR 1.12
--- NOTE | 2021-07-11 13:01 | RAD REPORT ---
EXAM DESCRIPTION: RAD - Chest Single View - 07/11/2021 12:48 pm CLINICAL HISTORY: confusion Chest pain. COMPARISON: Chest Single View dated 05/19/2021; Abdomen 1 View (KUB) dated 05/15/2021; Chest Single Vi ew dated 05/12/2021; Chest Single View dated 05/09/2021 FINDINGS: Portable technique limits examination quality. Moderate bilateral pulmonary opacities are present, greater on the left, likely representing pneumoni a. The heart is moderately enlarged. No displaced fractures.
[2021-07-11] MEDS ORDERED: CEFTRIAXONE 1000 MG/VIAL ONE (13:18)
[2021-07-11] MEDS ORDERED: AZITHROMYCIN 500 MG INJ IVPB ONE (13:19)
[2021-07-11] MEDS ORDERED: NA CHLORIDE 0.9% 250 ML ONE (13:19)
[2021-07-11 13:22] LABS: Potassium 5.1 mmol/L (3.5-5.1); Troponin High Sensitivity 34.2 pg/mL (<58.9)
--- NOTE | 2021-07-11 14:29 | ER ---
Nurse's Notes [facility] Name: Mitch Jim Jr Age: 76 yrs Sex: Male : 1945 Arrival Date: 07/11/2021 Time: 12:08 Bed 6 Private MD: David Mcknight T Diagnosis: Other pneumonia, unspecified organism;Aphasia;Anemia, unspecified;Hyponatremia Presentation: 07/11 12:15 Chief complaint: Spouse and/or significant other states: Spouse states for the past 3 ab2 days he has not been talking right or saying the correct things. He has not been able to follow directions with confusion. Had a CVA in March of 2021. Coronavirus screen: Vaccine status: Patient reports receiving the 2nd dose of the covid vaccine. Client denies travel out of the [place] in the last 14 days. Ebola Screen: Patient denies travel to an Ebola-affected area in the 21 days before illness onset. An acute neurological deficit is present. The charge nurse has been notified. The patient has been moved to a treatment area. The patients blood glucose was checked before arriving to the hospital and was found to be normal. Initial Sepsis Screen: Does the patient meet any 2 criteria? No. Patient's initial sepsis screen is negative. Does the patient have a suspected source of infection? No. Patient's initial sepsis screen is negative. Risk Assessment: Do you want to hurt yourself or someone else? Patient reports no desire to harm self or others. Onset of symptoms was July 08, 2021. 12:15 Method Of Arrival: Ambulatory ab2 12:15 Acuity: MARYLIN 2 ab2 Triage Assessment: 12:18 The onset of the patients symptoms was more than six hours ago. General: Appears in no ab2 apparent distress. Behavior is cooperative, drowsy. Pain: Denies pain. EENT: No signs and/or symptoms were reported regarding the EENT system. Neuro: Level of Consciousness is awake, alert, confused, Oriented to person. Cardiovascular:. Respiratory: Airway is patent Respiratory effort is even, unlabored, Respiratory pattern is regular, symmetrical. GI: No signs and/or symptoms were reported involving the gastrointestinal system. : No signs and/or symptoms were reported regarding the genitourinary system. Derm: Skin is fragile, is thin. Stroke Activation: Physician: Stroke Attending; Name: Lopez; Notified At: ; Arrived At: Physician: Chief Stroke Resident; Name: ; Notified At: ; Arrived At: Physician: Stroke Resident; Name: ; Notified At: ; Arrived At: Physician: ED Attending; Name: ; Notified At: ; Arrived At: Physician: ED Resident; Name: ; Notified At: ; Arrived At: 12:15 Lopez evaluated in triage. no stroke alert ab2 Historical: - Allergies: 12:18 No Known Allergies; ab2 - Home Meds: 12:18 aspirin 81 mg Oral chew 1 tab once daily [Active]; gabapentin 600 mg Oral tab 1 tab 3 ab2 times per day [Active]; hydrocodone-acetaminophen 5-325 mg Oral tab 1 tab three times a day [Active]; cyclobenzaprine 10 mg Oral tab 1 tab daily [Active]; metoprolol tartrate 25 mg Oral tab 1 tab once daily [Active]; Requip 1 mg Oral tab 1 tab daily [Active]; Symbicort 160-4.5 mcg/actuation inhalation HFAA 2 puffs 2 times per day [Active]; - PMHx: 12:18 Hypertension; Cerebrovascular accident; ab2 - PSHx: 12:18 Pain pump; ab2 - Immunization history:: Adult Immunizations up to date. - Social history:: Smoking status: Patient reports the use of cigarette tobacco products, smokes one-half pack cigarettes per day. Screenin:30 Abuse screen: Denies threats or abuse. Denies injuries from another. Nutritional ww screening: No deficits noted. Tuberculosis screening: No symptoms or risk factors identified. Fall Risk No fall in past 12 months (0 pts). No secondary diagnosis (0 pts). IV access (20 points). Ambulatory Aid- Furniture (30 pts.). Gait- Weak (10 pts.). Mental Status- Overestimates/Forgets Limitations (15 pts.). Total Fonseca Fall Scale indicates High Risk Score (45 or more points). Fall prevention measures have been instituted. Side Rails Up X 2 Placed Close to Nursing Station 1:1 Attendant Assigned Frequent Obs/Assessments Occuring Family Present and informed to notify staff if the need to leave the bedside As available patient and family educated on Fall Prevention Program and Strategies. Assessment: 12:30 VAN Scoring: Arm Drift: Patients demonstrates NO arm weakness. Patient is VAN Negative. ww T-PA (Activase) Screening: Indications: Treatment will start within 4.5 hours onset of symptoms: No. General: Appears comfortable, emaciated, Behavior is cooperative, drowsy. Pain: Denies pain. Neuro: Level of Consciousness is awake, confused, Oriented to person, Scrap Hooker are equal bilaterally Moves all extremities. Weakness Facial symmetry appears normal. Cardiovascular: Patient's skin is warm and dry. Rhythm is irregular Chest pain is denied. Respiratory: Airway is patent Respiratory effort is unlabored, Respiratory pattern is regular, symmetrical. GI: No signs and/or symptoms were reported involving the gastrointestinal system. : No signs and/or symptoms were reported regarding the genitourinary system. Derm: Skin is fragile, is thin, with poor turgor. 13:00 Reassessment: Patient appears in no apparent distress at this time. No changes from ww previously documented assessment. Patient and/or family updated on plan of care and expected duration. Pain level reassessed. 13:49 Reassessment: Patient appears in no apparent distress at this time. No changes from ww previously documented assessment. Patient and/or family updated on plan of care and expected duration. Pain level reassessed. 14:25 Reassessment: Patient appears in no apparent distress at this time. No changes from ww previously documented assessment. sleeping ing bed , spouse at bedside, repositioned in bed. 15:01 Reassessment: Patient appears in no apparent distress at this time. No changes from ww previously documented assessment. Patient and/or family updated on plan of care and expected duration. Pain level reassessed. Transported to CT. Attempted report. [place] stated the nurse that is receiving patient is eating and will call back. Vital Signs: 12:15 BP 137 / 85; Resp 18; Temp 99; Weight 63.5 kg; Height 6 ft. 2 in. (187.96 cm); Pain ab2 0/10; 12:30 BP 133 / 64; Pulse 74; Resp 22; Pulse Ox 89% on R/A; ww 13:33 BP 125 / 53; Pulse 72; Resp 21; Pulse Ox 95% on 3 lpm NC; ww 14:30 BP 113 / 64; Pulse 85; Resp 22; Pulse Ox 92% on 4 lpm NC; vg1 12:15 Body Mass Index 17.97 (63.50 kg, 187.96 cm) ab2 Johnny Coma Score: 12:30 Eye Response: spontaneous(4). Verbal Response: confused(4). Motor Response: obeys ww commands(6). Total: 14. 13:33 Eye Response: spontaneous(4). Verbal Response: confused(4). Motor Response: obeys ww commands(6). Total: 14. NIH Stroke Scale Scores: 12:30 NIHSS Score: 4 ww ED Course: 12:08 Patient arrived in ED. mr 12:08 David Mcknight MD is Private Physician. mr 12:11 Harman Lopez DO is Attending Physician. ms3 12:18 Triage completed. ab2 12:18 Arm band placed on left wrist. ab2 12:25 Tracey Hidalgo, MARIELA is Primary Nurse. ww 12:29 CT Stroke Brain w/o Contrast In Process Unspecified. EDMS 12:30 Patient has correct armband on for positive identification. Placed in gown. Bed in low ww position. Call light in reach. Side rails up X2. Adult w/ patient. threat monitoring analyst on. Pulse ox on. NIBP on. 12:37 EKG done, by ED staff, reviewed by Harman Lopez DO. em1 12:45 Inserted saline lock: 20 gauge in right forearm, using aseptic technique. Blood ww collected. 12:47 Stroke CXR 1 View In Process Unspecified. EDMS 13:00 Basic Metabolic Panel Sent. ww 13:25 First set of blood cultures drawn by me. vg1 13:42 Second set of blood cultures drawn by me. vg1 14:27 Prince Francisco MD is Hospitalizing Provider. ms3 14:57 Inserted saline lock: 20 gauge in left forearm, using aseptic technique. ww 15:07 Chest Angio In Process Unspecified. EDMS 15:30 No provider procedures requiring assistance completed. Patient admitted, IV remains in ww place. Administered Medications: 13:30 Drug: Rocephin (cefTRIAXone) 1 grams Route: IV; Rate: bolus; Site: right wrist; vg1 14:02 Follow up: IV Status: Completed infusion vg1 13:50 Drug: AZITHromycin 500 mg Route: IVPB; Infused Over: 1 hrs; Site: right wrist; vg1 14:50 Follow up: IV Status: Completed infusion; IV Intake: 250ml vg1 Point of Care Testing: Blood Glucose: 12:18 Blood Glucose: 104 mg/dL; ab2 Ranges: Intake: 14:50 IV: 250ml; Total: 250ml. vg1 Outcome: 14:28 Decision to Hospitalize by Provider. ms3 15:30 Admitted to Med/surg accompanied by tech, via stretcher, with oxygen, with chart, ww Report called to Juan Carlos 15:30 Condition: stable 15:30 Instructed on the need for admit. 15:54 Patient left the ED. ww NIH Stroke Scale - NIH Stroke Score Date: 07/11/2021 Time: 12:30 Total Score = 4 1a. Level of Consciousness (LOC) - 0(Alert) 1b. Level of Consciousness (LOC) (Month \T\ Age) - 1(One) 1c. LOC Commands (Open \T\ Closes Eyes/Simulation Software Engineer) - 1(One) 2. Best Gaze (Lateral Gaze Paresis) - 0(Normal) 3. Visual Field Loss - 0(No visual loss) 4. Facial Palsy - 0(Normal) 5a. Left Arm: Motor (10-second hold) - 0(No drift) 5b. Right Arm: Motor (10-second hold) - 0(No drift) 6a. Left Leg: Motor (5-second hold - always test supine) - 0(No drift) 6b. Right Leg: Motor (5-second hold - always test supine) - 0(No drift) 7. Limb Ataxia (finger/nose \T\ heel/chau - test with eyes open) - 0(Absent) 8. Sensory Loss (pinprick arms/legs/face) - 0(Normal) 9. Best Language: Aphasia (description/naming/reading) - 1(Mild to moderate aphasia) 10. Dysarthria (speech clarity - read or repeat words) - 1(Mild to Moderate) 11. Extinction and Inattention (visual/tactile/auditory/spatial/personal) - 0(No abnormality) Initials: ww Signatures: Dispatcher [employer] EDWI PayneSara davison Eric em1 Leonila Conley, RN RN vg1 Harman Lopez DO DO ms3 Tracey Hidalgo, RN RN ww Ron Foreman ab2 Corrections: (The following items were deleted from the chart) 14:01 14:01 BP 125 / 53; Pulse 72bpm; Resp 21bpm; Pulse Ox 95% 3 lpm Nasal Cannula; wwww 14:01 14:01 GCS: 14, ww ww
--- NOTE | 2021-07-11 14:29 | EDPHYS ---
Physician Documentation [facility] Name: Mitch Jim Jr Age: 76 yrs Sex: Male : 1945 Arrival Date: 07/11/2021 Time: 12:08 Bed 6 Private MD: David Mcknight T ED Physician Harman Lopez HPI: 07/11 12:18 This 76 yrs old Male presents to ER via Ambulatory with complaints of Confusion, ms3 Trouble Talking. 12:18 The patient presents to the emergency department with a speech or higher order brain ms3 function problem, aphasia, that is moderate. Onset: The symptoms/episode began/occurred 3 day(s) ago. Associated signs and symptoms: Pertinent negatives: weakness. Severity of symptoms: in the emergency department the symptoms are unchanged. Patient's baseline: Neuro: alert and fully oriented, Motor: no deficits, Ambulation: walks without assistance, Speech: normal, The patient has a previous history of CVA. 76-year-old male presents with his for confusion and difficulty finding words for 3 days. Patient denies pain. Patient denies alleviating or inciting factors. Patient denies fevers, chills, nausea, vomiting, headache.. Historical: - Allergies: 12:18 No Known Allergies; ab2 - Home Meds: 12:18 aspirin 81 mg Oral chew 1 tab once daily [Active]; gabapentin 600 mg Oral tab 1 tab 3 ab2 times per day [Active]; hydrocodone-acetaminophen 5-325 mg Oral tab 1 tab three times a day [Active]; cyclobenzaprine 10 mg Oral tab 1 tab daily [Active]; metoprolol tartrate 25 mg Oral tab 1 tab once daily [Active]; Requip 1 mg Oral tab 1 tab daily [Active]; Symbicort 160-4.5 mcg/actuation inhalation HFAA 2 puffs 2 times per day [Active]; - PMHx: 12:18 Hypertension; Cerebrovascular accident; ab2 - PSHx: 12:18 Pain pump; ab2 - Immunization history:: Adult Immunizations up to date. - Social history:: Smoking status: Patient reports the use of cigarette tobacco products, smokes one-half pack cigarettes per day. ROS: 12:18 Constitutional: Negative for fever, and chills. Eyes: Negative for injury, pain, ms3 redness, and discharge, Neck: Negative for injury, pain, and swelling, Cardiovascular: Negative for chest pain, and palpitations. Respiratory: Negative for shortness of breath, cough, wheezing, and pleuritic chest pain, Abdomen/GI: Negative for abdominal pain, nausea, vomiting, diarrhea, and constipation, Back: Negative for injury and pain, MS/Extremity: Negative for injury and deformity, Skin: Negative for injury, rash, and discoloration. 12:18 Neuro: Positive for Difficulty finding words. Exam: 11:33 ECG was reviewed by the Attending Physician. ms3 12:18 Constitutional: This is a well developed, well nourished patient who is awake, alert, ms3 and in no acute distress. Head/Face: Normocephalic, atraumatic. Eyes: Pupils equal round and reactive to light, extra-ocular motions intact. Lids and lashes normal. Conjunctiva and sclera are non-icteric and not injected. Periorbital areas with no swelling, redness, or edema. Chest/axilla: Normal chest wall appearance and motion. Nontender with no deformity. Cardiovascular: Regular rate and rhythm with a normal S1 and S2. No gallops, murmurs, or rubs. Normal PMI, no JVD. No pulse deficits. Respiratory: Lungs have equal breath sounds bilaterally, clear to auscultation and percussion. No rales, rhonchi or wheezes noted. No increased work of breathing, no retractions or nasal flaring. Abdomen/GI: Soft, non-tender, with normal bowel sounds. No distension or tympany. No guarding or rebound. No evidence of tenderness throughout. Skin: Warm, dry with normal turgor. Normal color with no rashes, no lesions, and no evidence of cellulitis. 12:18 Neuro: 12:25 Neuro: Orientation: to person, Mentation: responsive to voice able to follow commands, ms3 Motor: is normal, Sensation: is normal, Difficulty finding words and using inappropriate words. Vital Signs: 12:15 BP 137 / 85; Resp 18; Temp 99; Weight 63.5 kg; Height 6 ft. 2 in. (187.96 cm); Pain ab2 0/10; 12:30 BP 133 / 64; Pulse 74; Resp 22; Pulse Ox 89% on R/A; ww 13:33 BP 125 / 53; Pulse 72; Resp 21; Pulse Ox 95% on 3 lpm NC; ww 14:30 BP 113 / 64; Pulse 85; Resp 22; Pulse Ox 92% on 4 lpm NC; vg1 12:15 Body Mass Index 17.97 (63.50 kg, 187.96 cm) ab2 NIH Stroke Scale Scores: 12:30 NIHSS Score: 4 ww Johnny Coma Score: 12:30 Eye Response: spontaneous(4). Verbal Response: confused(4). Motor Response: obeys ww commands(6). Total: 14. 13:33 Eye Response: spontaneous(4). Verbal Response: confused(4). Motor Response: obeys ww commands(6). Total: 14. MDM: 12:21 Patient medically screened. ms3 14:30 Data reviewed: vital signs, nurses notes, lab test result(s), radiologic studies, CT ms3 scan, plain films. Data interpreted: breakdown man: rate is 82 beats/min, rhythm is atrial fibrillation. Test interpretation: by ED physician or midlevel provider: ECG. Counseling: I had a detailed discussion with the patient and/or guardian regarding: the historical points, exam findings, and any diagnostic results supporting the discharge/admit diagnosis, lab results, radiology results, the need for further work-up and treatment in the hospital. ED course: Discussed case with Dr Hager. Hydrate and treat PNA. Discussed case with Dr Francisco and he accepts patient as admission. Discussed plan for admission with patient's and she understands and agrees with plan. Patient remains in stable condition in the emergency department. 07/11 12:17 Order name: Basic Metabolic Panel ms3 07/11 12:17 Order name: CBC with Diff; Complete Time: 13:10 ms3 07/11 12:17 Order name: Protime (+inr); Complete Time: 13:10 ms3 07/11 12:17 Order name: Ptt, Activated; Complete Time: 13:10 ms3 07/11 12:17 Order name: Troponin HS; Complete Time: 14:00 ms3 07/11 12:18 Order name: Urine Microscopic Only ms3 07/11 12:17 Order name: CT Stroke Brain w/o Contrast; Complete Time: 13:10 ms3 07/11 12:18 Order name: Basic Metabolic Panel; Complete Time: 14:00 EDMS 07/11 12:27 Order name: Glucose, Ancillary Testing; Complete Time: 13:10 EDMS 07/11 13:12 Order name: Blood Culture Adult (2) ms3 07/11 13:18 Order name: SARS-COV-2 RT PCR; Complete Time: 14:18 EDMS 07/11 14:45 Order name: Lactate EDMS 07/11 14:52 Order name: AMMONIA ww 07/11 12:17 Order name: Stroke CXR 1 View; Complete Time: 13:10 ms3 07/11 12:17 Order name: EKG; Complete Time: 12:19 ms3 07/11 12:17 Order name: Accucheck; Complete Time: 12:25 ms3 07/11 12:17 Order name: Cardiac monitoring; Complete Time: 12:43 ms3 07/11 12:17 Order name: EKG - Nurse/Tech; Complete Time: 12:37 ms3 07/11 12:17 Order name: IV Saline Lock; Complete Time: 12:43 ms3 07/11 12:17 Order name: Labs collected and sent; Complete Time: 12:43 ms3 07/11 12:17 Order name: NPO; Complete Time: 12:25 ms3 07/11 12:17 Order name: O2 Per Protocol; Complete Time: 12:25 ms3 07/11 12:17 Order name: O2 Sat Monitoring; Complete Time: 12:25 ms3 07/11 14:45 Order name: Chest Angio EDMS 07/11 14:56 Order name: Echo with Doppler EDMS EC:33 Rate is 79 beats/min. Rhythm is irregularly irregular, A fib. Left axis deviation ms3 noted. Clinical impression: Atrial Fibrillation. Interpreted by me. Reviewed by me. Administered Medications: 13:30 Drug: Rocephin (cefTRIAXone) 1 grams Route: IV; Rate: bolus; Site: right wrist; vg1 14:02 Follow up: IV Status: Completed infusion vg1 13:50 Drug: AZITHromycin 500 mg Route: IVPB; Infused Over: 1 hrs; Site: right wrist; vg1 14:50 Follow up: IV Status: Completed infusion; IV Intake: 250ml vg1 Point of Care Testing: Blood Glucose: 12:18 Blood Glucose: 104 mg/dL; ab2 Ranges: Critical Glucose Levels:Adult <50 mg/dl or >400 mg/dl <40 mg/dl or >180 mg/dl Disposition Summary: 07/11/21 14:28 Hospitalization Ordered Hospitalization Status: Inpatient Admission ms3 Provider: Prince purvi Francisco3 Location: Telemetry/MedSurg (Inpatient) ms3 Condition: Stable ms3 Problem: new ms3 Symptoms: have improved ms3 Bed/Room Type: Standard ms3 Room Assignment: 405(07/11/21 14:56) dw Diagnosis - Other pneumonia, unspecified organism ms3 - Aphasia ms3 - Anemia, unspecified ms3 - Hyponatremia ms3 Forms: - Medication Reconciliation Form ms3 - SBAR form ms3 NIH Stroke Scale - NIH Stroke Score Date: 07/11/2021 Time: 12:30 Total Score = 4 1a. Level of Consciousness (LOC) - 0(Alert) 1b. Level of Consciousness (LOC) (Month \T\ Age) - 1(One) 1c. LOC Commands (Open \T\ Closes Eyes/Muffler Tender) - 1(One) 2. Best Gaze (Lateral Gaze Paresis) - 0(Normal) 3. Visual Field Loss - 0(No visual loss) 4. Facial Palsy - 0(Normal) 5a. Left Arm: Motor (10-second hold) - 0(No drift) 5b. Right Arm: Motor (10-second hold) - 0(No drift) 6a. Left Leg: Motor (5-second hold - always test supine) - 0(No drift) 6b. Right Leg: Motor (5-second hold - always test supine) - 0(No drift) 7. Limb Ataxia (finger/nose \T\ heel/chau - test with eyes open) - 0(Absent) 8. Sensory Loss (pinprick arms/legs/face) - 0(Normal) 9. Best Language: Aphasia (description/naming/reading) - 1(Mild to moderate aphasia) 10. Dysarthria (speech clarity - read or repeat words) - 1(Mild to Moderate) 11. Extinction and Inattention (visual/tactile/auditory/spatial/personal) - 0(No abnormality) Initials: ww Signatures: Dispatcher [employer] Daniela Silveira RN RN dw Garcia, Victoria, RN RN vg1 Harman Lopez DO DO ms3 Bleininger, Ron ab2 Corrections: (The following items were deleted from the chart) 12:26 12:18 Constitutional: This is a well developed, well nourished patient who is ms3 awake, alert, and in no acute distress. Head/Face: Normocephalic, atraumatic. Eyes: Pupils equal round and reactive to light, extra-ocular motions intact. Lids and lashes normal. Conjunctiva and sclera are non-icteric and not injected. Periorbital areas with no swelling, redness, or edema. Chest/axilla: Normal chest wall appearance and motion. Nontender with no deformity. Cardiovascular: Regular rate and rhythm with a normal S1 and S2. No gallops, murmurs, or rubs. Normal PMI, no JVD. No pulse deficits. Respiratory: Lungs have equal breath sounds bilaterally, clear to auscultation and percussion. No rales, rhonchi or wheezes noted. No increased work of breathing, no retractions or nasal flaring. Abdomen/GI: Soft, non-tender, with normal bowel sounds. No distension or tympany. No guarding or rebound. No evidence of tenderness throughout. Skin: Warm, dry with normal turgor. Normal color with no rashes, no lesions, and no evidence of cellulitis. ms3 13:19 12:25 COVID 19 CPL+MR.LAB.BRZ ordered. EDMS EDMS 14:56 14:28 ms3 dw
--- NOTE | 2021-07-11 14:53 | P.HP ---
Certification for Inpatient Patient admitted to: Inpatient With expected LOS: >2 Midnights Practitioner: I am a practitioner with admitting privileges, knowledge of patient current condition, hospital course, and medical plan of care. Services: Services provided to patient in accordance with Admission requirements found in Title 42 Section 412.3 of the Code of Federal Regulations Patient History Date of Service: 07/11/21 Reason for admission: Aphasia for 3 days History of Present Illness: Patient is a 76-year-old male with a known past medical history of atrial fibrillation, recent stroke in March 2021 followed by rehab. He presented to the ER today complaining of aphasia ongoing for the past 3 days. This was noticed by his who is also at bedside. Apparently, after his stroke late last year, patient did not have any functional deficits. He was able to ambulate without assistance and complete his ADLs. His CT abdomen and pelvis here is revealing a large nonhemorrhagic stroke, which the radiologist estimates 6 to 8 weeks old. Additional work-up included a chest x-ray which showed bilateral pneumonia. Patient is hypoxic on 5 L in the ER. Allergies No Known Allergies Allergy (Verified 05/07/21 16:16) Home Medications: Acetaminophen [Tylenol] 650 mg PO Q6H PRN 05/07/21 Multivitamin [Multiple Vitamins] 1 each PO DAILY 05/07/21 Nicotine [Nicoderm*] 1 patch TD DAILY 05/07/21 Albuterol Neb [Proventil 0.083% Neb Soln] 2.5 mg NEB [id number] PRN amp 05/22/21 Apixaban [Eliquis *] 2.5 mg PO BID tablet 05/22/21 Famotidine [Pepcid*] 20 mg PO BID tab 05/22/21 Ferrous Sulfate [Ferrous Sulfate Elixir*] 5 ml PO TID #450 osyr 05/22/21 Ipratropium Neb [Atrovent*] 0.5 mg NEB [id number] PRN amp 05/22/21 Jevity 1.5 Mark Liquid 237 ml FT 0500,0900,1300,1700 bot 05/22/21 Jevity 1.5 Mark Liquid 237 ml RTH 2100 bot 05/22/21 Loperamide [Imodium*] 4 mg PO Q4H PRN cap 05/22/21 Melatonin [Children's Sleep] 5 ml PO BEDTIME #30 liquid 05/22/21 Metoprolol Tartrate [Lopressor*] 25 mg PO BID 6AM 6PM tab 05/22/21 Multivitamin Oral Liq [Theravite Liq*] 5 ml FT DAILY osyr 05/22/21 Nicotine [Nicoderm Cq] 14 mg TD DAILY #30 patch.td24 05/22/21 Oxybutynin Chloride [Ditropan*] 5 mg PO BEDTIME tab 05/22/21 Pantoprazole [Protonix Tab*] 40 mg PO 0600 tab 05/22/21 Rosuvastatin [Crestor*] 5 mg PO BEDTIME tab 05/22/21 Terazosin HCl [Hytrin*] 1 mg PO BEDTIME cap 05/22/21 Thiamine HCl [Vitamin B-1*] 100 mg PO DAILY tablet 05/22/21 levoFLOXacin [Levaquin*] 750 mg PO Q48H #14 tab 05/22/21 lisinopriL [Prinivil*] 10 mg PO DAILY tab 05/22/21 - Past Medical/Surgical History Diabetic: No -: CVA -: A-fibb -: hyperlipidema -: COPD -: Baclofen pain pump lower rt ABD -: chronic neck and lower back pain -: PEG 05/03/21 -: thrombectomy 04/18 -: hip surg - Social History Alcohol use: No CD- Drugs: No Caffeine use: Yes Physical Examination - Physical Exam General: Cachectic, Confused HEENT: Atraumatic, Normocephalic Respiratory: Diminished, Other (No wheezing or crackles) Cardiovascular: Regular rate/rhythm, Normal S1 S2 Musculoskeletal: Other (Severe sarcopenia) - Studies Laboratory Data (last 24 hrs) 07/11/21 12:42: PT 12.3, INR 1.12, APTT 34.4 07/11/21 12:42: WBC 6.90, Hgb 9.4 L, Hct 29.0 L, Plt Count 344 07/11/21 12:42: Sodium 131 L, Potassium 5.1, BUN 25 H, Creatinine 0.95, Glucose 101 Assessment and Plan - Problems (Diagnosis) (1) Acute hypoxemic respiratory failure Current Visit: Yes Status: Acute (2) Bilateral pneumonia Current Visit: Yes Status: Acute (3) Atrial fibrillation Current Visit: Yes Status: Acute (4) Stroke, recent, without late effect Current Visit: Yes Status: Acute - Advance Directives Does patient have a Living Will: No Does patient have a Durable POA for Healthcare: No Physician Review Additional Text: Assessment Patient is a 76-year-old male severely cachectic with a recent history of stroke late last year. He was brought in for evaluation of ongoing aphasia. Since his admission, he was found to have bilateral pneumonia and acute hypoxemic respiratory failure. His CT head recaptured a large nonhemorrhagic s troke. Acute hypoxemic respiratory failure Bilateral pneumonia Aphasia Recent stroke Severe malnutrition Plan: We will admit inpatient with telemetry We will obtain a CT angio of the chest to rule out PE Continue ceftriaxone and azithromycin Follow-up blood cultures COVID-19 has been ruled out We will obtain a RADHA
--- NOTE | 2021-07-11 15:36 | RAD REPORT ---
EXAM DESCRIPTION: CT - Chest Angio - 07/11/2021 3:07 pm CLINICAL HISTORY: Chest pain. r/o PE COMPARISON: Thorax Wo Con dated 06/29/2019 TECHNIQUE: CT angiogram of the pulmonary arteries was performed with MIP. All CT scans are performed using dose optimization technique as appropriate and may include automated exposure control or mA/KV adjustment according to patient size. FINDINGS: No evidence of pulmonary thromboembolism. No acute aortic finding demonstrated. Aortic atherosclerosis. Moderate infiltrate pattern with lung consolidation is seen in posterior left upper lobe, lingula, le ft lung base and right lung base. Loculated small to moderate amount of pleural fluid is seen superior left thoracic cage. Small amount right pleural fluid also noted. Significant cardiomegaly. Subacute right posterior lower rib fractures noted. IMPRESSION: No evidence of pulmonary thromboembolism. Multifocal airspace consolidation bilaterally as detailed likely infiltrate/pneumonia.
[2021-07-11] MEDS ORDERED: LORazepam 2 MG/ML VIAL IV ONE (19:36)
--- NOTE | 2021-07-11 20:59 | RAD REPORT ---
EXAM DESCRIPTION: RAD - Chest Single View - 07/11/2021 8:39 pm CLINICAL HISTORY: Shortness of Breath Chest pain. COMPARISON: Chest Single View dated 07/11/2021; Chest Single View dated 05/19/2021; Abdomen 1 View ([facility]) dated 05/15/2021; Chest Single View dated 05/12/2021 FINDINGS: Portable technique limits examination quality. Moderate bilateral pulmonary opacities are noted, greater on the left. Since earlier study same day, there has been mild worsening in lung aeration. The heart is moderately enlarged in size. No displace d fractures. IMPRESSION: Mild worsening in lung aeration is noted since earlier today.
[2021-07-11 21:02] LABS: Absolute Lymphocytes (CBC) 0.9 K/uL (0.7-4.9); Hematocrit 30.2 % (39.6-49.0); Lymphocytes % 16.2 % (15.3-44.8); MPV 7.2 fL (7.6-11.3); RBC Red Blood Cell Count 3.42 M/uL (4.33-5.43)
[2021-07-11 21:02] LABS: Arterial Blood Carboxyhemoglob 5.2 % (0-1.5); Blood Gas Oxyhemoglobin 79.7 % (94-97)
[2021-07-12] MEDS ORDERED: LORazepam 2 MG/ML VIAL IV ONE ×2 (02:11→04:50)
[2021-07-12] MEDS ORDERED: LORazepam 2 MG/ML VIAL ONE (04:51)
[2021-07-12] MEDS ORDERED: NA CHLORIDE 0.9% 1,000 ML IV SCH (05:00)
[2021-07-12 05:08] LABS: Albumin 2.3 g/dL (3.4-5.0); Bilirubin Total 0.3 mg/dL (0.2-1.0); Potassium 4.7 mmol/L (3.5-5.1)
[2021-07-12] MEDS: D5 0.45 NS 1,000 ML IV SCH ×2 (06:27→20:48)
--- NOTE | 2021-07-12 07:25 | EKG ---
Test Date: 2021-07-11 Test Time: 11:33:33 Speech Correction Assistant: REAGAN MEASUREMENT RESULTS: Intervals: Rate: 79 CA: QRSD: 144 QT: 394 QTc: 451 [place]: P: CA: QRS: -81 T: 92 INTERPRETIVE STATEMENTS: Atrial fibrillation Left axis deviation Right bundle branch block Anterior infarct, age undetermined T wave abnormality, consider lateral ischemia Abnormal ECG Compared to ECG 05/16/2009 14:16:22 Left-axis deviation now present T-wave abnormality now present Possible ischemia now present Ventricular premature complex(es) no longer present Left anterior fascicular block no longer present Myocardial infarct finding still present Electronically Signed On 07-12-21 07:22:11 CDT by James Valdez
[2021-07-12] MEDS: LORazepam 2 MG/ML VIAL IV PRN ×3 (08:55→21:07)
[2021-07-12] MEDS ORDERED: AZITHROMYCIN IV 500 MG in NA CHLORIDE 0.9% 250 ML IVPB SCH (09:00)
[2021-07-12] MEDS ORDERED: CEFTRIAXONE 1,000 MG in NA CHLORIDE 0.9% 50 ML IVPB SCH (09:00)
[2021-07-12] MEDS: Meropenem 1,000 MG in NA CHLORIDE 0.9% 100 ML IV SCH ×2 (09:37→17:07)
--- NOTE | 2021-07-12 10:15 | P.PN ---
Subjective Date of Service: 07/12/21 Chief Complaint: Aphasia for 3 days Subjective: Worsening (Increased O2 requirement since admission. Placed on NIV. Seems better this morning, more alert and awake.) Physical Examination - Vital Signs Temperature: 97.1 F Blood Pressure: 135/84 Pulse: 88 Respirations: 21 Pulse Ox (%): 100 - Physical Exam General: Alert, In no apparent distress, Cachectic HEENT: Atraumatic, Normocephalic Respiratory: Other (BIPAP in place) Cardiovascular: Regular rate/rhythm, Normal S1 S2 Musculoskeletal: No clubbing, No swelling, No contractures Neurological: Other (restless) - Studies Laboratory Data (last 24 hrs) 07/11/21 12:42: PT 12.3, INR 1.12, APTT 34.4 07/11/21 12:42: WBC 6.90, Hgb 9.4 L, Hct 29.0 L, Plt Count 344 07/11/21 12:42: Sodium 131 L, Potassium 5.1, BUN 25 H, Creatinine 0.95, Glucose 101 Assessment And Plan - Current Problems (Diagnosis) (1) Acute hypoxemic respiratory failure Current Visit: Yes Status: Acute (2) Bilateral pneumonia Current Visit: Yes Status: Acute (3) Atrial fibrillation Current Visit: Yes Status: Acute (4) Stroke, recent, without late effect Current Visit: Yes Status: Acute Physician Review Additional Text: Assessment Patient is a 76-year-old male severely cachectic with a recent history of stroke late last year. He was brought in for evaluation of ongoing aphasia. Since his admission, he was found to have bilateral pneumonia and acute hypoxemic respiratory failure. His CT head recaptured a large nonhemorrhagic stroke. Acute hypoxemic respiratory failure Bilateral pneumonia Aphasia Recent stroke Severe malnutrition Plan: PE ruled out Antibiotics widened to Meropenem Continue NIV and wean down as tolerated Pulmonary consulted today. Started on IV Solumedrol Follow-up blood cultures Follow up TTE Lovenox for DVT ppx
[2021-07-12] MEDS: METHYLPREDNISOLONE 125 MG INJ IV SCH ×2 (11:38→20:47)
--- NOTE | 2021-07-12 12:13 | P.CNS ---
Date of Consult: 07/12/21 Reason for Consult: Pleural effusion Chief Complaint: Aphasia for 3 days History of Present Illness: Patient is 76 years of age with a history of stroke been having some aphasia for the past 3 days is able to ambulate currently has a had a large nonhemorrhagic stroke chest x-ray is very abnormal patient was also hypoxic Patient is anticoagulated has a pain pump Allergies No Known Allergies Allergy (Verified 05/07/21 16:16) Home Medications: Acetaminophen [Tylenol] 650 mg PO Q6H PRN 05/07/21 Multivitamin [Multiple Vitamins] 1 each PO DAILY 05/07/21 Nicotine [Nicoderm*] 1 patch TD DAILY 05/07/21 Albuterol Neb [Proventil 0.083% Neb Soln] 2.5 mg NEB [id number] PRN amp 05/22/21 Apixaban [Eliquis *] 2.5 mg PO BID tablet 05/22/21 Famotidine [Pepcid*] 20 mg PO BID tab 05/22/21 Ferrous Sulfate [Ferrous Sulfate Elixir*] 5 ml PO TID #450 osyr 05/22/21 Ipratropium Neb [Atrovent*] 0.5 mg NEB [id number] PRN amp 05/22/21 Jevity 1.5 Mark Liquid 237 ml FT 0500,0900,1300,1700 bot 05/22/21 Jevity 1.5 Mark Liquid 237 ml RTH 2100 bot 05/22/21 Loperamide [Imodium*] 4 mg PO Q4H PRN cap 05/22/21 Melatonin [Children's Sleep] 5 ml PO BEDTIME #30 liquid 05/22/21 Metoprolol Tartrate [Lopressor*] 25 mg PO BID 6AM 6PM tab 05/22/21 Multivitamin Oral Liq [Theravite Liq*] 5 ml FT DAILY osyr 05/22/21 Nicotine [Nicoderm Cq] 14 mg TD DAILY #30 patch.td24 05/22/21 Oxybutynin Chloride [Ditropan*] 5 mg PO BEDTIME tab 05/22/21 Pantoprazole [Protonix Tab*] 40 mg PO 0600 tab 05/22/21 Rosuvastatin [Crestor*] 5 mg PO BEDTIME tab 05/22/21 Terazosin HCl [Hytrin*] 1 mg PO BEDTIME cap 05/22/21 Thiamine HCl [Vitamin B-1*] 100 mg PO DAILY tablet 05/22/21 levoFLOXacin [Levaquin*] 750 mg PO Q48H #14 tab 05/22/21 lisinopriL [Prinivil*] 10 mg PO DAILY tab 05/22/21 - Past Medical/Surgical History Diabetic: No -: CVA -: A-fibb -: hyperlipidema -: COPD -: Baclofen pain pump lower rt ABD -: chronic neck and lower back pain -: PEG 05/03/21 -: thrombectomy 04/18 -: hip surg - Social History Smoking Status: Current every day smoker Alcohol use: No CD- Drugs: No Caffeine use: Yes Place of Residence: Home Review of Systems is unable to be obtained Physical Examination Temp Pulse Resp BP Pulse Ox 97.1 F 88 21 H 135/84 100 07/12/21 10:15 07/12/21 10:15 07/12/21 10:15 07/12/21 10:15 07/12/21 10:15 General: Alert, Mild distress Respiratory: Diminished (Diminished air entry on the left side) Cardiovascular: No edema, Regular rate/rhythm, Normal S1 S2 Gastrointestinal: Normal bowel sounds, Soft and benign Laboratory Data (last 24 hrs) 07/11/21 12:42: PT 12.3, INR 1.12, APTT 34.4 07/11/21 12:42: WBC 6.90, Hgb 9.4 L, Hct 29.0 L, Plt Count 344 07/11/21 12:42: Sodium 131 L, Potassium 5.1, BUN 25 H, Creatinine 0.95, Glucose 101 - Problems (1) Pleural effusion Current Visit: Yes Status: Acute Plan: Patient is 76 years of age admitted with aphasia he had a history of stroke x- ray abnormal he appears to have a loculated effusion with volume loss on the left side minimal effusion on the right lung cubitus x-rays and chest CT scan r eviewed patient is mildly hypoxic hypercapnic on admission his white count is normal oxygenation satisfactory he is a current smoker presumably has COPD CT scan reviewed bilateral pleural effusion loculated predominantly in the left side no evidence of active sepsis peers to have a trapped lung large area of infarct noted in the left cerebral hemisphere patient does not appear to be septic cultures are still pending prognosis very poor
--- NOTE | 2021-07-12 12:17 | RAD REPORT ---
EXAM DESCRIPTION: RAD - Chest Lateral Decubitus - 07/12/2021 11:22 am CLINICAL HISTORY: Bilateral Pleural effusion. COMPARISON: Chest Single View dated 07/11/2021; Chest Angio dated 07/11/2021 FINDINGS: A small layering right pleural effusion is seen measuring maximally 3.4 cm in thickness. N o significant layering left pleural fluid present.
--- NOTE | 2021-07-12 13:05 | ECHO ---
HEIGHT: 6 ft 2 in WEIGHT: 140 lb 0 oz DATE OF STUDY: 07/12/[address]: Prince Doc Francisco MD 2-DIMENSIONAL: YES M.MODE: YES DOPPLER: YES COLOR FLOW: YES TDS: NO PORTABLE: NO DEFINITY: NO BUBBLE STUDY: NO DIAGNOSIS: SHORTNESS OF BREATH CARDIAC HISTORY: CATHERIZATION: NO SURGERY: NO PROSTHETIC VALVE: NO PACEMAKER: NO MEASUREMENTS (cm) DIASTOLIC (NORMALS) SYSTOLIC (NORMALS) IVSd 1.4 (0.6-1.2) LA Diam 5.4 (1.9-4.0) LVEF 56% LVIDd 4.0 (3.5-5.7) LVIDs 2.8 (2.0-3.5) %FS 29% LVPWd 1.4 (0.6-1.2) Ao Diam 2.7 (2.0-3.7) 2 DIMENSIONAL ASSESSMENT: RIGHT ATRIUM: NORMAL LEFT ATRIUM: ENLARGED RIGHT VENTRICLE: NORMAL LEFT VENTRICLE: LEFT VENTRICULAR HYPERTROPHY TRICUSPID VALVE: NORMAL MITRAL VALVE: MITRAL ANNULAR CALCIFICATION PULMONIC VALVE: NORMAL AORTIC VALVE: NORMAL PERICARDIAL EFFUSION: SMALL AORTIC ROOT: NORMAL LEFT VENTRICULAR WALL MOTION: NORMAL DOPPLER/COLOR FLOW: MILD MITRAL AND AORTIC REGURGITATION. COMMENTS: MILD MITRAL AND AORTIC REGURGITATION. MITRAL ANNULAR CALCIFICATION. LEFT VENTRICULAR HYPERTROPHY. LEFT ATRIAL ENLARGEMENT. NORMAL LEFT VENTRICULAR EJECTION FRACTION. SMALL PERICARDIAL EFFUSION. TECHNOLOGIST: Paloma RASHID
[2021-07-12] MEDS: ALBUTEROL 2.5 MG/3 ML NEB SOL IH SCH ×2 (13:41→19:20)
[2021-07-12] MEDS ORDERED: ALBUTEROL 2.5 MG/3 ML NEB SOL NEB PRN (15:18)
[2021-07-12] MEDS ORDERED: ENOXAPARIN 40 MG/0.4 ML SQ SCH (17:00)
[2021-07-12] MEDS: JEVITY 1.5 CAL LIQUID 1,000 ML BOT FT SCH (17:00)
[2021-07-12] MEDS: NICOTINE 14 MG/PAT TD SCH (17:08)
[2021-07-12] MEDS: METOPROLOL TAR 25 MG TAB PO SCH (17:08)
[2021-07-12 20:36] LABS: Absolute Lymphocytes (CBC) 0.4 K/uL (0.7-4.9); Hematocrit 30.9 % (39.6-49.0); Lymphocytes % 8.2 % (15.3-44.8); MPV 7.2 fL (7.6-11.3)
[2021-07-12] MEDS: APIXABAN 2.5 MG TABLET PO SCH (20:48)
[2021-07-12] MEDS: OXYBUTYNIN CHLORIDE 5 MG TAB PO SCH (20:48)
[2021-07-12] MEDS: ROSUVASTATIN 5 MG PO SCH (20:48)
[2021-07-12] MEDS: JEVITY 1.5 CAL LIQUID 1,000 ML BOT RTH SCH (20:48)
[2021-07-12] MEDS: MELATONIN 5 MG TABLET PO SCH (20:48)
[2021-07-12] MEDS: TERAZOSIN HCL 1 MG CAP PO SCH (20:48)
[2021-07-12] MEDS ORDERED: ONDANSETRON 4 MG/2 ML VIAL IV PRN (20:59)
[2021-07-12] MEDS ORDERED: MELATONIN PO SCH (21:00)
[2021-07-12] MEDS ORDERED: ROSUVASTATIN 10 MG TAB PO SCH (21:00)
[2021-07-12 21:31] LABS: Anisocytosis SLIGHT; Blood Morphology Comment NOTED (NOT SEEN); Platelet Estimate ADEQ; Polychromasia SLIGHT; White Blood Cell Scan OK (OK)
[2021-07-13] MEDS: Meropenem 1,000 MG in NA CHLORIDE 0.9% 100 ML IV SCH ×2 (00:13→10:19)
[2021-07-13] MEDS: ALBUTEROL 2.5 MG/3 ML NEB SOL IH SCH ×4 (01:05→20:00)
[2021-07-13] MEDS: LORazepam 2 MG/ML VIAL IV PRN ×3 (03:39→17:40)
[2021-07-13 04:16] LABS: Hematocrit 31.1 % (39.6-49.0); Lymphocytes % 3.3 % (15.3-44.8); MPV 7.2 fL (7.6-11.3); RBC Red Blood Cell Count 3.56 M/uL (4.33-5.43)
[2021-07-13 04:17] LABS: Absolute Lymphocytes (CBC) 0.2 K/uL (0.7-4.9)
[2021-07-13 04:50] LABS: Potassium 5.2 mmol/L (3.5-5.1); Sodium Level 134 mmol/L (136-145)
[2021-07-13 04:52] LABS: Albumin 2.1 g/dL (3.4-5.0); BUN Blood Urea Nitrogen 22 mg/dL (7-18); Bicarbonate 34 mmol/L (21-32); Glucose Level 172 mg/dL (74-106)
[2021-07-13 04:55] LABS: ALT/SGPT 13 U/L (12-78); AST/SGOT 21 U/L (15-37)
[2021-07-13 04:57] LABS: Bilirubin Total 0.3 mg/dL (0.2-1.0); Protein, Total 6.5 g/dL (6.4-8.2)
[2021-07-13 04:58] LABS: Alkaline Phosphatase 82 U/L (45-117)
[2021-07-13] MEDS: JEVITY 1.5 CAL LIQUID 1,000 ML BOT FT SCH ×4 (05:00→17:00)
[2021-07-13] MEDS: PANTOPRAZOLE 40MG TABLET PO SCH (05:53)
[2021-07-13] MEDS: METOPROLOL TAR 25 MG TAB PO SCH (06:00)
[2021-07-13] MEDS ORDERED: lisinopriL 10 MG TAB PO SCH (09:00)
[2021-07-13] MEDS ORDERED: THIAMINE HCL 100 MG TABLET PO SCH (09:00)
--- NOTE | 2021-07-13 10:05 | RAD REPORT ---
EXAM DESCRIPTION: US - Chest - 07/13/2021 9:41 am CLINICAL HISTORY: Pleural effusion COMPARISON: July 12, 2021 chest x-ray IMPRESSION: Moderate right pleural effusion
[2021-07-13] MEDS: APIXABAN 2.5 MG TABLET PO SCH (10:17)
[2021-07-13] MEDS: NICOTINE 14 MG/PAT TD SCH (10:18)
[2021-07-13] MEDS: D5 0.45 NS 1,000 ML IV SCH ×2 (10:23→22:15)
[2021-07-13] MEDS: METHYLPREDNISOLONE 125 MG INJ IV SCH (10:24)
--- NOTE | 2021-07-13 10:48 | P.PN ---
Subjective Date of Service: 07/13/21 Chief Complaint: Aphasia for 3 days Subjective: Improving (Patient continues to require supplemental O2, currenlty on 3L with O2 sats of 98%) Physical Examination - Vital Signs Temperature: 97.4 F Blood Pressure: 100/55 Pulse: 88 Respirations: 15 Pulse Ox (%): 90 - Physical Exam General: In no apparent distress, Cooperative, Cachectic HEENT: Atraumatic, Normocephalic Respiratory: Diminished Cardiovascular: Regular rate/rhythm, Normal S1 S2 Musculoskeletal: Other (sarcopenia) Neurological: Dementia Assessment And Plan - Current Problems (Diagnosis) (1) Acute hypoxemic respiratory failure Current Visit: Yes Status: Acute (2) Bilateral pneumonia Current Visit: Yes Status: Acute (3) Atrial fibrillation Current Visit: Yes Status: Acute (4) Stroke, recent, without late effect Current Visit: Yes Status: Acute Physician Review Additional Text: Assessment Patient is a 76-year-old male severely cachectic with a recent history of stroke late last year. He was brought in for evaluation of ongoing aphasia. Since his admission, he was found to have bilateral pneumonia and acute hypoxemic respiratory failure. His CT head recaptured a large nonhemorrhagic stroke. Acute hypoxemic respiratory failure - PE ruled out Bilateral pneumonia Aphasia Recent stroke Severe malnutrition Plan: Improving on IV steroids Bacterial pneumonia is unlikely Will need placement to LTAC for acute respiratory failure, severe malnutrition Wean down Oxygen as tolerated TTE with mild MR/AR. LVEF is preserved Follow-up blood cultures Nutrition and TECHNICIAN PREVENTATIVE MEDICINE recommendations appreciated Lovenox for DVT ppx
--- NOTE | 2021-07-13 13:20 | P.PN ---
Subjective Date of Service: 07/13/21 Chief Complaint: Unresponsive No change in patient's condition he pulled out his [place] agitated moving all extremities unresponsive Review of Systems is unable to be obtained Physical Examination - Vital Signs Temperature: 98.5 F Blood Pressure: 107/67 Pulse: 110 Respirations: 96 Pulse Ox (%): 96 - Physical Exam General: Unresponsive Respiratory: Clear to auscultation bilaterally, Diminished Cardiovascular: No edema, Regular rate/rhythm Assessment And Plan - Current Problems (Diagnosis) (1) Pleural effusion Current Visit: Yes Status: Acute Plan: Patient has multiloculated effusion on the left side no evidence of active sepsis DC meropenem as likely need a surgical intervention she has deviation of the left hemithorax towards the left side oxygenation satisfactory will add thiamine consider an LTAC need a PEG tube (2) Altered mental status Current Visit: Yes Status: Acute Plan: Patient is a history of stroke able to do an assessment add IV thiamine continue with IV fluids possible underlying COPD patient is an active smoker Solu-Medrol to 50 IV twice daily continue with bronchodilators for now DC lisinopril and metoprolol blood pressure is low prognosis very poor Qualifiers: Altered mental status type: stupor Qualified Code(s): R40.1 - Stupor
[2021-07-13] MEDS: IPRATROPIUM BROM 0.5MG/2.5ML NEB PRN (20:00)
[2021-07-13] MEDS ORDERED: WATER FOR INJ,STERILE 10 ML IM PRN (20:27)
[2021-07-13] MEDS ORDERED: ZIPRASIDONE MESYLA 20 MG/VIAL IM ONE ×2 (20:27→20:32)
[2021-07-13] MEDS ORDERED: WATER FOR INJ,STERILE 10 ML ONE (20:33)
[2021-07-13] MEDS: THIAMINE 200 MG/2 ML INJ IVP SCH (20:38)
[2021-07-13] MEDS: ENOXAPARIN 40 MG/0.4 ML SQ SCH (20:38)
[2021-07-13] MEDS: METHYLPREDNISOLONE 40 MG INJ IV SCH (20:38)
[2021-07-13] MEDS: OXYBUTYNIN CHLORIDE 5 MG TAB PO SCH (20:39)
[2021-07-13] MEDS: JEVITY 1.5 CAL LIQUID 1,000 ML BOT RTH SCH (21:00)
[2021-07-13] MEDS: MELATONIN 5 MG TABLET PO SCH (21:00)
[2021-07-13] MEDS: TERAZOSIN HCL 1 MG CAP PO SCH (21:00)
[2021-07-13] MEDS: ROSUVASTATIN 5 MG PO SCH (21:00)
[2021-07-14] MEDS: IPRATROPIUM BROM 0.5MG/2.5ML NEB PRN (01:03)
[2021-07-14] MEDS: ALBUTEROL 2.5 MG/3 ML NEB SOL IH SCH ×4 (01:03→19:30)
[2021-07-14] MEDS: D5 0.45 NS 1,000 ML IV SCH ×3 (01:40→19:30)
[2021-07-14] MEDS: JEVITY 1.5 CAL LIQUID 1,000 ML BOT FT SCH ×4 (05:00→17:00)
[2021-07-14] MEDS: PANTOPRAZOLE 40MG TABLET PO SCH (06:00)
[2021-07-14 08:37] LABS: ALT/SGPT 16 U/L (12-78); AST/SGOT 24 U/L (15-37); Albumin 2.2 g/dL (3.4-5.0); Alkaline Phosphatase 73 U/L (45-117); BUN Blood Urea Nitrogen 19 mg/dL (7-18); Bicarbonate 35 mmol/L (21-32); Bilirubin Total 0.2 mg/dL (0.2-1.0); Glucose Level 156 mg/dL (74-106); Potassium 5.2 mmol/L (3.5-5.1); Protein, Total 6.7 g/dL (6.4-8.2); Sodium Level 136 mmol/L (136-145)
[2021-07-14] MEDS: THIAMINE 200 MG/2 ML INJ IVP SCH ×2 (09:53→20:36)
[2021-07-14] MEDS: METHYLPREDNISOLONE 40 MG INJ IV SCH (09:53)
[2021-07-14] MEDS: ENOXAPARIN 40 MG/0.4 ML SQ SCH ×2 (09:53→20:34)
--- NOTE | 2021-07-14 10:50 | P.PN ---
Subjective Date of Service: 07/14/21 Chief Complaint: COPD pleural effusion Patient is doing much better he is very alert responsive cooperative at the bedside he is a heavy smoker according to the he drinks Ensure at home Review of Systems is unable to be obtained Physical Examination - Vital Signs Temperature: 97 F Blood Pressure: 132/60 Pulse: 87 Respirations: 18 Pulse Ox (%): 92 - Physical Exam General: Alert, Cooperative Respiratory: Clear to auscultation bilaterally, Diminished (On the left side) Cardiovascular: No edema, Irregular heart rate/rhythm Assessment And Plan - Current Problems (Diagnosis) (1) Pleural effusion Current Visit: Yes Status: Acute Plan: Patient is doing much better we will plan for thoracentesis start on low-dose Lovenox due to atrial fibrillation discussed with the to proceed to thoracentesis possibly by Saturday (2) COPD (chronic obstructive pulmonary disease) Current Visit: Yes Status: Acute Plan: Patient is a heavy smoker continue with bronchodilators steroids and nebulizers Qualifiers: Emphysema type: unspecified
[2021-07-14 11:26] LABS: Absolute Lymphocytes (CBC) 0.5 K/uL (0.7-4.9); Hematocrit 31.1 % (39.6-49.0); Lymphocytes % 3.7 % (15.3-44.8); MPV 7.2 fL (7.6-11.3); RBC Red Blood Cell Count 3.55 M/uL (4.33-5.43)
--- NOTE | 2021-07-14 12:32 | RAD REPORT ---
EXAM DESCRIPTION: RAD - Chest Single View - 07/14/2021 11:50 am CLINICAL HISTORY: Status Post Thorocentesis COMPARISON: Portable 07/11/2021 chest exam, ultrasound chest 07/13/2021 TECHNIQUE: AP portable chest image was obtained 07/14/2021 11:50 am . FINDINGS: Available history indicates right-sided pleural effusion status post thoracentesis. No rig ht-sided pneumothorax is identified. Small amount of remnant pleural effusion identifiable. Left lung pleural and parenchymal opacification noted and unchanged. Heart is mostly obscured. No gross cardiomegaly seen. Delete select IMPRESSION: No post thoracentesis pneumothorax identifiable.
[2021-07-14 12:51] LABS: Platelet Estimate ADEQ; White Blood Cell Scan OK (OK)
[2021-07-14 12:52] LABS: Anisocytosis 1+; Blood Morphology Comment NOTED (NOT SEEN); Hypochromasia 1+; Platelets, Giant PRESENT; Poikilocytosis SLIGHT; Target Cells FEW
--- NOTE | 2021-07-14 13:07 | P.PN ---
Subjective Date of Service: 07/14/21 Chief Complaint: COPD pleural effusion Subjective: Worsening (Increased oxygen requirement x 24 hours. Currently on 5L. Evidence of pleural effusion on CXR. He fell in the afternoon. No visible signs of trauma/injury. Mental status unchanged compared to earlier evaluation.) Physical Examination - Vital Signs Temperature: 97.5 F Blood Pressure: 104/60 Pulse: 105 Respirations: 26 Pulse Ox (%): 96 - Physical Exam General: Cooperative, Cachectic, Other (More alert and awake, and cooperative) HEENT: Atraumatic, Normocephalic Respiratory: Diminished, Other (Breathing is not laboured) Cardiovascular: Regular rate/rhythm, Normal S1 S2 Gastrointestinal: Soft and benign, Non-distended Musculoskeletal: Other (sarcopenia) Assessment And Plan - Current Problems (Diagnosis) (1) Acute hypoxemic respiratory failure Current Visit: Yes Status: Acute (2) Bilateral pneumonia Current Visit: Yes Status: Acute (3) Atrial fibrillation Current Visit: Yes Status: Acute (4) Stroke, recent, without late effect Current Visit: Yes Status: Acute Physician Review Additional Text: Assessment Patient is a 76-year-old male severely cachectic with a recent history of stroke late last year. He was brought in for evaluation of ongoing aphasia. Since his admission, he was found to have bilateral pneumonia and acute hypoxemic respiratory failure. His CT head recaptured a large non-hemorrhagic stroke. Acute hypoxemic respiratory failure - PE ruled out Bilateral pneumonia Acute encephalopathy Aphasia Recent stroke Severe malnutrition Plan: Worsening respiratory status after fall Currently on the non-rebreather We'll obtain a STAT ABG CT head when respiratory status is more stabilized He will need to be transfer to the ICU due to increased level of care Continue IV steroid Bacterial pneumonia is unlikely with a negative procalcitonin Pulmonary/IR planning for a thoracentesis on Saturday I have reached out to Dr. Romero for PEG tube in placement, as requested by Encourage PO intake. Nutrition and DIRECTOR OF DIRECT MARKETING recommendations appreciated DVT ppx Delirium protocol: allow sunlight during the day, minimize sedation, reorientation
[2021-07-14] MEDS ORDERED: LORazepam 2 MG/ML VIAL IV ONE ×2 (15:01→23:17)
[2021-07-14 16:10] LABS: Arterial Blood Carboxyhemoglob 1.8 % (0-1.5); Blood Gas Oxyhemoglobin 86.5 % (94-97); Blood O2 Saturation 89.2 % (92-98.5)
[2021-07-14] MEDS: HALOPERIDOL LACT 5 MG/ML INJ IV PRN ×2 (17:36→21:28)
[2021-07-14] MEDS: JEVITY 1.5 CAL LIQUID 1,000 ML BOT RTH SCH (20:38)
[2021-07-14] MEDS: TERAZOSIN HCL 1 MG CAP PO SCH (20:38)
[2021-07-14] MEDS: ROSUVASTATIN 5 MG PO SCH (20:41)
[2021-07-14] MEDS: OXYBUTYNIN CHLORIDE 5 MG TAB PO SCH (20:42)
[2021-07-14] MEDS: predniSONE 20 MG TAB PO SCH (20:42)
[2021-07-14] MEDS ORDERED: WATER FOR INJ,STERILE 10 ML IM PRN (22:02)
[2021-07-14] MEDS ORDERED: ZIPRASIDONE MESYLA 20 MG/VIAL IM ONE ×2 (22:02→22:04)
[2021-07-14] MEDS ORDERED: METOPROLOL TARTRATE 5 MG/5 ML INJ IV STA (23:15)
[2021-07-14] MEDS ORDERED: LORazepam 2 MG/ML VIAL ONE (23:25)
[2021-07-15] MEDS: D5 0.45 NS 1,000 ML IV SCH ×3 (00:55→14:15)
[2021-07-15] MEDS: HALOPERIDOL LACT 5 MG/ML INJ IV PRN ×6 (00:59→22:31)
[2021-07-15] MEDS: ALBUTEROL 2.5 MG/3 ML NEB SOL IH SCH ×4 (02:00→20:30)
[2021-07-15] MEDS: JEVITY 1.5 CAL LIQUID 1,000 ML BOT FT SCH ×4 (05:00→16:59)
[2021-07-15] MEDS: PANTOPRAZOLE 40MG TABLET PO SCH (05:27)
[2021-07-15 07:22] LABS: Absolute Lymphocytes (CBC) 0.9 K/uL (0.7-4.9); Hematocrit 27.1 % (39.6-49.0); Lymphocytes % 8.1 % (15.3-44.8); MPV 7.5 fL (7.6-11.3)
--- NOTE | 2021-07-15 08:12 | P.PN ---
Subjective Date of Service: 07/15/21 Chief Complaint: COPD pleural effusion Subjective: Other (Required multiple anxiolytics over magdalena past 24 hours for severe agitation. Seen sleeping this morning.) Physical Examination - Vital Signs Temperature: 97.2 F Blood Pressure: 132/40 Pulse: 97 Respirations: 15 Pulse Ox (%): 97 - Physical Exam General: Other (sedated) HEENT: Atraumatic, Normocephalic Neck: Supple Respiratory: Diminished Cardiovascular: Regular rate/rhythm, Normal S1 S2 Musculoskeletal: Other (sarcopenia) Assessment And Plan - Current Problems (Diagnosis) (1) Acute hypoxemic respiratory failure Current Visit: Yes Status: Acute (2) Bilateral pneumonia Current Visit: Yes Status: Acute (3) Atrial fibrillation Current Visit: Yes Status: Acute (4) Stroke, recent, without late effect Current Visit: Yes Status: Acute Physician Review Additional Text: Assessment Patient is a 76-year-old male severely cachectic with a recent history of stroke late last year. He was brought in for evaluation of ongoing aphasia. Since his admission, he was found to have bilateral pneumonia and acute hypoxemic respiratory failure. His CT head recaptured a large non-hemorrhagic stroke. Increasing oxygen requirement throguhout his hospitalization. Fell on 07/14. Yet to be scanned due to unstable respiratory status. Acute hypoxemic respiratory failure - PE ruled out Bilateral pneumonia Acute encephalopathy Aphasia Recent stroke Severe malnutrition Plan: Continue respiratory support with HFNC/NIV. FiO2 of 60% Plan to place a chest tube by Surgery for pleural effusion I have reached out to Dr. Romero for PEG tube in placement, as requested by CT head when respiratory status is more stabilized Continue sitter Delirium protocol: allow sunlight during the day, minimize sedation, reorientation Continue IV steroid Bacterial pneumonia is unlikely with a negative procalcitonin Nutrition and LABORER [employer]LE [employer]W recommendations appreciated
[2021-07-15 08:32] LABS: BUN Blood Urea Nitrogen 15 mg/dL (7-18); Bicarbonate 34 mmol/L (21-32); Glucose Level 395 mg/dL (74-106); NT PRO-BNP 10270 pg/mL (<450); Sodium Level 136 mmol/L (136-145)
--- NOTE | 2021-07-15 08:45 | RAD REPORT ---
EXAM DESCRIPTION: [place] Single View07/15/2021 6:43 am CLINICAL HISTORY: Chest pain COMPARISON: June FINDINGS: Development of complete left atelectasis. Worsening in the right lung opacities presumably pneumonia Right pleural effusion probably unchanged allowing differences in positioning. IMPRESSION: Complete left atelectasis Worsening in right lung opacities presumably pneumonia
[2021-07-15] MEDS: ENOXAPARIN 40 MG/0.4 ML SQ SCH ×2 (08:49→20:49)
[2021-07-15] MEDS: THIAMINE 200 MG/2 ML INJ IVP SCH ×2 (08:49→20:49)
[2021-07-15] MEDS: predniSONE 20 MG TAB PO SCH (08:50)
--- NOTE | 2021-07-15 09:37 | P.PN ---
Subjective Date of Service: 07/15/21 Chief Complaint: Respiratory failure Patient's condition deteriorated he was transferred to the ICU currently he is unresponsive hypoxic on a BiPAP Review of Systems is unable to be obtained Physical Examination - Vital Signs Temperature: 97.2 F Blood Pressure: 132/40 Pulse: 97 Respirations: 15 Pulse Ox (%): 97 - Physical Exam General: Unresponsive Respiratory: Diminished (Left side), Crackles/rales Assessment And Plan - Current Problems (Diagnosis) (1) Pleural effusion Current Visit: Yes Status: Acute Plan: Patient's condition is worsened chest x-ray shows complete opacification on the left side plan for a chest tube today prophylactic antibiotics (2) COPD (chronic obstructive pulmonary disease) Current Visit: Yes Status: Acute Plan: Resume IV steroids bronchodilators will also need a Dobbhoff for now Qualifiers: Emphysema type: unspecified
[2021-07-15] MEDS: METHYLPREDNISOLONE 40 MG INJ IV SCH ×2 (09:52→20:48)
[2021-07-15] MEDS: CEFTRIAXONE 1,000 MG in NA CHLORIDE 0.9% 50 ML IVPB SCH (09:52)
--- NOTE | 2021-07-15 10:56 | RAD REPORT ---
EXAM DESCRIPTION: CT - Head Brain Wo Cont - 07/15/2021 10:48 am CLINICAL HISTORY: fall COMPARISON: Ct Stroke Brain Wo Cont dated 07/11/2021 TECHNIQUE: All CT scans are performed using dose optimization technique as appropriate and may inclu de automated exposure control or mA/KV adjustment according to patient size. FINDINGS: Remote right parietal and occipital lobe infarcts presumably subacute bifrontal and left p arietal infarcts/insults. Remote left cerebellar infarct which is small. No acute intracranial hemorr riri. No mass effect or midline shift. No hydrocephalus. The paranasal sinuses and mastoids are clear. The calvarium is intact. IMPRESSION: No acute intracranial abnormality. No hemorrhagic transformation of the previously seen subacute left frontal and parietal infarcts identified. Remote infarcts also noted.
[2021-07-15] MEDS: IPRATROPIUM BROM 0.5MG/2.5ML NEB PRN (13:50)
--- NOTE | 2021-07-15 13:53 | RAD REPORT ---
EXAM DESCRIPTION: RAD - Chest Single View - 07/15/2021 1:44 pm CLINICAL HISTORY: R/O Pneumo. COMPARISON: Chest Single View dated 07/15/2021; Chest Single View dated 07/14/2021; Chest Single View dated 07/11/2021; Chest Single View dated 07/11/2021; Chest Angio dated 07/11/2021 FINDINGS: Lines: None. Lungs: Poorly aerated left lung with obstruction of the left mainstem bronchus. Partial collapse of t he left lung. Airspace disease in the right lung is similar. Pleural: Left-sided pleural effusion which may be loculated. Small right effusion difficult to exclud e. . Cardiac: The heart size is within normal limits. Bones: No acute fractures. Other: IMPRESSION: Persistent partial collapse and loculated effusion in the left lung. Airspace disease in the right lung and aerated portions of the left lung. This is similar to 07/15/2021. Pneumonia and/o r multifocal edema within the differential. No pneumothorax .
--- NOTE | 2021-07-15 15:11 | P.OP ---
Preoperative diagnosis: LEFT pleural effusion / complete opacification of LEFT hemithorax Postoperative diagnosis: LEFT pleural effusion / complete opacification of LEFT hemithorax Primary procedure: Placement of 10fr LEFT thoracostomy tube Anesthesia: 1% lidocaine Estimated blood loss: <1cc Specimen: pleural fluid sent for analysis Findings: straw colored, non-bloody pleural fluid Complications: None Drain(s): Other (10Fr thoracostomy tube) Transferred to: ICU Condition: Serious
--- NOTE | 2021-07-15 19:40 | CON ---
Date of Consultation: 07/15/2021 Brief History Of Present Illness: Patient is a 76-year-old male with a past medical history of atria l fibrillation and stroke in March 2021, who ultimately went to rehabilitation. He presented to [facility] on 07/11/2021 for aphasia for approximately 3 days prior to his admission. He was noticed by h is who is his primary animal cytologist at that point. He did not have any residual defect after his st roke initially last year. He was able to ambulate without assistance and completed his ADLs. He zachary menjivar was brought into the hospital for the above stated issue. During his convalescence at the [facility], he continues to have confusion and difficulty with cognition. As such, I am consulted for sabrina quijano about a PEG tube as well as a large left persistent pleural effusion with atelectatic change s on the left chest and as such, possible placement of a thoracostomy tube. Past Medical History: As above, which included CVA, atrial fibrillation, hyperlipidemia, COPD. Past Surgical History: Includes a baclofen pain pump in the right lower abdomen; PEG tube in the [facility], which was removed; thrombectomy in 03/2021; and hip surgery. Allergies: NO KNOWN DRUG ALLERGIES. Home Medications: Include Tylenol, multivitamins, Nicoderm, Proventil, Eliquis, Pepcid, ferrous sulf ate, Atrovent, Jevity, Imodium, melatonin, metoprolol, Theravite, nicotine/Nicoderm CQ, Ditropan, Pro tonix, Crestor, Hytrin, vitamin B1, Levaquin, and Prinivil. Social History: Information is obtained from chart as patient is nonverbal during my examination. P er chart, there is no history of alcohol or recreational drug use, but there is a smoking history. I am unable to verify that. Review of Systems: 10-point review of systems other than HPI, unable to obtain. Physical Examination: General: At the time of my examination, the patient is cachectic. Psychiatric: He is nonverbal and moans during examination. He is somewhat combative and requires re straints while examination due to flailing. HEENT: Otherwise normocephalic. His sclerae were difficult to examine as the patient would not open his eyes appropriately. He remained with tightly closed eyelids. Nose, turbinates are clear. Chest: Normal expansion and excursion. Cardiovascular: Regular rate and rhythm at this time. Pulmonary: Decreased/almost absent breath sounds on the left. Minimal apical breath tones are evide nt. Otherwise, it is extremely dull on the left. Decreased breath sounds on the right as well. Abdomen: Soft. Previous PEG tube site is noted. Pelvis: Stable. Skin: Warm and dry otherwise. Imaging: He had a chest x-ray performed on 07/15 at 6:00 a.m., which was officially read as a comple te left atelectasis worsening and right lung opacities, presumably pneumonia. Laboratory Exam: Revealed a white blood cell count of 10.6, hemoglobin is 8.3, hematocrit 27.1, plat elet count was 263, neutrophils are 80.6. Coags showed a PT 12.3, INR 1.12, PTT is 34.4. His chemis try showed a sodium 136, potassium 4.0, chloride 99, carbon dioxide 34, BUN 15, creatinine 0.68, gluc ose is 395. His calcium is 7.7. His proBNP is 10,270. COVID was negative. Assessment And Plan: This is a 76-year-old male, who comes in with multiple medical problems. He is currently nonverbal and confused. 1.Continue medical management. 2.I have discussed the risks, benefits, and alternatives of placement of a left thoracostomy tube, i ncluding but not limited to bleeding, infection, damage to surrounding tissues, injury to the lung an d great vessels as well as heart, need for further operation or procedures with the patient's wh o agrees to proceed. 3.We will discuss placement of a percutaneous endoscopic gastrostomy feeding tube when the patient i s stabilized from a pulmonary standpoint and is optimized for treatment at this point. Until such ti me, I recommend continued supplemental nutrition with TPN or enteric nutrition via postpyloric feedin g access with aspiration precautions. I have explained the risks, benefits, alternatives to the priscila ent's , who agrees to proceed at this point. Thank you for this interesting consult. LEEANNE/TAMARA Voice ID: [id number] Report ID: [id number]
[2021-07-15] MEDS: JEVITY 1.5 CAL LIQUID 1,000 ML BOT RTH SCH (20:50)
[2021-07-15] MEDS: ROSUVASTATIN 5 MG PO SCH (20:50)
[2021-07-15] MEDS: OXYBUTYNIN CHLORIDE 5 MG TAB PO SCH (20:50)
[2021-07-15] MEDS: TERAZOSIN HCL 1 MG CAP PO SCH (20:50)
[2021-07-15] MEDS ORDERED: MORPHINE 2 MG/ML SYR IV ONE (21:00)
--- NOTE | 2021-07-16 01:40 | OP ---
Date of Procedure: 07/15/2021 Surgeon: Shailesh Romero MD, Preoperative Diagnosis: Left pleural effusion/complete opacification of left hemithorax. Postoperative Diagnosis: Left pleural effusion/complete opacification of left hemithorax. Procedure Performed: Placement of a 10-[place] left thoracostomy tube. Anesthesia: 1% lidocaine used without epinephrine. Estimated Blood Loss: Less than 1 cc. Specimen: Pleural fluid sent for analysis. Findings: Straw-colored non-bloody pleural fluid approximately 250 cc encountered. Complications: None. Implants/drains: 10-[place] thoracostomy tube. The patient remained in ICU in serious condition. Procedure In Detail: After informed consent was obtained from the patient's , the patient was pr epped and draped in the usual sterile fashion. An area of the left anterior axillary line was anesth etized with 1% lidocaine. At this point, a small dorota incision was made overlying the skin at the in sertion site and using the introducer catheter set I introduced the 10-[place] thoracostomy tube acros s approximately the 4th or 5th intercostal space pointing cranially toward the apex of the lungs. Us ing a finer needle medially, the inner trocar was removed and the pigtail catheter was advanced into the thoracic space. Straw-colored non-bloody fluid was immediately encountered as I passed the ailyn ter over the rib. At this point, it was hooked up to negative pressure Pneumovax system and straw-co lored non-bloody fluid was returned. At this point, the catheter was secured to the chest wall using an 0 silk suture in an interrupted fashion and a sterile dressing placed over top. The patient tushar rated the procedure well without evidence of complication, remained in the ICU in serious condition t hroughout the procedure. All counts were correct at the end of the case. TK/MODL Voice ID: [id number] Report ID: [id number]
[2021-07-16] MEDS: D5 0.45 NS 1,000 ML IV SCH ×2 (01:50→16:53)
[2021-07-16] MEDS: ALBUTEROL 2.5 MG/3 ML NEB SOL IH SCH ×4 (02:25→19:40)
[2021-07-16] MEDS: IPRATROPIUM BROM 0.5MG/2.5ML NEB PRN (02:25)
[2021-07-16] MEDS: JEVITY 1.5 CAL LIQUID 1,000 ML BOT FT SCH ×2 (05:00→09:00)
[2021-07-16] MEDS: HALOPERIDOL LACT 5 MG/ML INJ IV PRN ×4 (05:38→20:36)
[2021-07-16] MEDS: PANTOPRAZOLE 40MG TABLET PO SCH (06:00)
--- NOTE | 2021-07-16 07:43 | RAD REPORT ---
EXAM DESCRIPTION: RAD - Chest Single View - 07/16/2021 6:38 am CLINICAL HISTORY: LEFT thoracostomy tube placed, pleural effusion COMPARISON: Portable 07/15/2021 TECHNIQUE: AP portable chest image was obtained 07/16/2021 6:38 am labeled supine. FINDINGS: Small bore chest tube is present with the tip positioned in the mid left lung field. Left- sided pleural fluid collection has reduced significantly. No pneumothorax is identified. Anterior pne umothorax can be occult on a portable supine examination. Patchy lung parenchymal opacification is present. There are areas of airspace opacification could be infiltrate, subsegmental atelectasis or edema. Small right pleural effusion is suspected. Heart size is upper normal but stable. Pulmonary vasculature within normal limits. Trachea is in the midline. IMPRESSION: Small bore chest tube is positioned in the mid left lung field with substantial reductio n of the left-sided pleural fluid collection since prior imaging. No pneumothorax is seen though an anterior pneumothorax can be present on a portable supine examinati on. Patchy lung parenchymal opacities similar to comparison. Small right pleural effusion suspected.
--- NOTE | 2021-07-16 08:40 | P.PN ---
Subjective Date of Service: 07/16/21 Chief Complaint: COPD pleural effusion Subjective: Improving (S/P left sided chest tube for pleural effusion. Now weaned off NIV and on 3L.) Physical Examination - Vital Signs Temperature: 97.4 F Blood Pressure: 85/61 Pulse: 117 Respirations: 20 Pulse Ox (%): 96 - Physical Exam General: Cachectic, Other (agitated) HEENT: Atraumatic, Normocephalic Respiratory: Diminished Cardiovascular: Regular rate/rhythm, Normal S1 S2, Other (tachycardic) Musculoskeletal: No clubbing, No swelling, No contractures, No erythema Assessment And Plan - Current Problems (Diagnosis) (1) Acute hypoxemic respiratory failure Current Visit: Yes Status: Acute (2) Bilateral pneumonia Current Visit: Yes Status: Acute (3) Atrial fibrillation Current Visit: Yes Status: Acute (4) Stroke, recent, without late effect Current Visit: Yes Status: Acute Physician Review Additional Text: Assessment Patient is a 76-year-old male severely cachectic with a recent history of stroke late last year. He was brought in for evaluation of ongoing aphasia. Since his admission, he was found to have bilateral pneumonia and acute hypoxemic respiratory failure. His CT head recaptured a large non-hemorrhagic stroke. Increasing oxygen requirement throguhout his hospitalization. Fell 07/14. CT negative for acute injury. Almost immediately became hypoxic after his fall and had to be transferred to the unit for NIV. Chest tube on 07/15 after chest x showed left sided effusion and partially collapse left lung. Acute hypoxemic respiratory failure - PE ruled out Bilateral pneumonia Acute encephalopathy Rapid afib Aphasia Recent stroke Severe malnutrition Plan: Started on diltiazem drip for rapid afib OFF NIV and now on 3L Chest tube management as per Dr Romero. I have also reached out to Dr. Romero for PEG tube in placement, as requested by Continue sitter Delirium protocol: allow sunlight during the day, minimize sedation, reorientation Continue IV steroid Bacterial pneumonia is unlikely with a negative procalcitonin Nutrition and FREELANCE PROGRAMMER/APP DEVELOPER recommendations appreciated
[2021-07-16] MEDS: THIAMINE 200 MG/2 ML INJ IVP SCH ×2 (09:12→21:04)
[2021-07-16] MEDS: METHYLPREDNISOLONE 40 MG INJ IV SCH ×2 (09:12→21:04)
[2021-07-16] MEDS: CEFTRIAXONE 1,000 MG in NA CHLORIDE 0.9% 50 ML IVPB SCH (09:12)
[2021-07-16] MEDS ORDERED: DILTIAZEM INJ 125 MG in NA CHLORIDE 0.9% 100 ML IV SCH (10:00)
[2021-07-16] MEDS: LORazepam 2 MG/ML VIAL IV PRN ×2 (11:37→18:06)
[2021-07-16] MEDS: NICOTINE 14 MG/PAT TD SCH (12:52)
--- NOTE | 2021-07-16 13:03 | P.PN ---
Subjective Date of Service: 07/16/21 Chief Complaint: COPD pleural effusion Subjective: Improving (patient remains non-verbal) Physical Examination - Vital Signs Temperature: 97.4 F Blood Pressure: 111/93 Pulse: 107 Respirations: 22 Pulse Ox (%): 96 - Physical Exam General: Alert, In no apparent distress, Demented, Confused Respiratory: Other (LEFT chest tube in place, significant improvement, fluid clear) Assessment And Plan - Current Problems (Diagnosis) (1) Pleural effusion Current Visit: Yes Status: Acute Plan: - continue thoracostomy tube on suction for now - continue medical management Malnutrition - will discuss timing of PEG placement with primary team
[2021-07-16] MEDS ORDERED: JEVITY 1.2 CAL LIQUID 1,000 ML BOT FT SCH (15:00)
[2021-07-16] MEDS: ROSUVASTATIN 5 MG PO SCH (21:00)
[2021-07-16] MEDS: OXYBUTYNIN CHLORIDE 5 MG TAB PO SCH (21:00)
[2021-07-16] MEDS: TERAZOSIN HCL 1 MG CAP PO SCH (21:00)
[2021-07-16] MEDS: MORPHINE 2 MG/ML SYR IV PRN (21:15)
[2021-07-16] MEDS ORDERED: LORazepam 2 MG/ML VIAL IV ONE (21:34)
[2021-07-17] MEDS: ALBUTEROL 2.5 MG/3 ML NEB SOL IH SCH ×4 (01:35→20:00)
[2021-07-17] MEDS: LORazepam 2 MG/ML VIAL IV PRN ×2 (04:11→10:02)
[2021-07-17] MEDS: PANTOPRAZOLE 40MG TABLET PO SCH (05:22)
[2021-07-17] MEDS: D5 0.45 NS 1,000 ML IV SCH ×2 (05:56→21:48)
[2021-07-17] MEDS: CEFTRIAXONE 1,000 MG in NA CHLORIDE 0.9% 50 ML IVPB SCH (07:30)
[2021-07-17] MEDS: METHYLPREDNISOLONE 40 MG INJ IV SCH ×2 (07:30→20:11)
[2021-07-17] MEDS: THIAMINE 200 MG/2 ML INJ IVP SCH ×2 (07:31→20:10)
[2021-07-17] MEDS: NICOTINE 14 MG/PAT TD SCH (07:31)
[2021-07-17] MEDS: IPRATROPIUM BROM 0.5MG/2.5ML NEB PRN ×2 (08:19→20:30)
--- NOTE | 2021-07-17 08:30 | RAD REPORT ---
[facility] CLINICAL HISTORY: Left chest tube COMPARISON: July 15, 2021 FINDINGS: Left chest tube in place without pneumothorax No significant change in bilateral pulmonary opacities and cardiomegaly. Partial left lung atelectasis. Left pleural effusion is loculated and probably small to moderate Right pleural effusion may be small to moderate
[2021-07-17] MEDS: MORPHINE 2 MG/ML SYR IV PRN ×2 (08:51→20:18)
[2021-07-17] MEDS: HALOPERIDOL LACT 5 MG/ML INJ IV PRN (09:17)
--- NOTE | 2021-07-17 12:31 | P.PN ---
Subjective Date of Service: 07/17/21 Chief Complaint: Delirium Patient continues to remain very agitated delirious s/p chest tube Review of Systems is unable to be obtained Physical Examination - Vital Signs Temperature: 96.8 F Blood Pressure: 144/97 Pulse: 110 Respirations: 24 Pulse Ox (%): 99 - Physical Exam General: Delirious Respiratory: Clear to auscultation bilaterally, Diminished Cardiovascular: No edema, Regular rate/rhythm - Studies Microbiology Data (last 24 hrs): 07/11/21 13:42 Blood - Blood Aerobic Blood Culture - Final No growth in 5 days. 07/11/21 13:42 Blood - Blood Anaerobic Blood Culture - Final No growth in 5 days. 07/11/21 13:25 Blood - Blood Aerobic Blood Culture - Final No growth in 5 days. 07/11/21 13:25 Blood - Blood Anaerobic Blood Culture - Final No growth in 5 days. Assessment And Plan - Current Problems (Diagnosis) (1) Pleural effusion Current Visit: Yes Status: Acute Plan: S/p chest tube on the left side pleural fluid chemistries need to be sent off including Gram stain culture and cytology chest x-ray has improved on the left side no malignant cells identified (2) COPD (chronic obstructive pulmonary disease) Current Visit: Yes Status: Acute Plan: Awaiting Dobbhoff consider LTAC Qualifiers: Emphysema type: unspecified
[2021-07-17] MEDS ORDERED: Ringers Lactate 1,000 ML IV ONE (12:44)
[2021-07-17] MEDS ORDERED: propofoL 200 MG/20 ML VIAL IV ONE (12:57)
--- NOTE | 2021-07-17 13:29 | ENDO RPT ---
[address], [address] EGD WITH PEG PROCEDURE REPORT EXAM DATE: 07/17/2021 PATIENT NAME: Mitch Jim MR #: [id number] BIRTHDATE: 1945 ATTENDING: Shailesh Romero DR STATUS: inpatient - 7 INDUSTRIAL PARAMEDIC: Sanaz Durham RN and Carlie Gatica CST INDICATIONS: The patient is a 76 yr old Male here for an EGD with PEG due to malnutrition PROCEDURE PERFORMED: EGD with PEG placement MEDICATIONS: Per Anesthesia. TOPICAL ANESTHETIC: none CONSENT: The patient understands the risks and benefits of the procedure and understands that these risks include, but are not limited to: sedation, allergic reaction, infection, perforation and/or bleeding. Alternative means of evaluation and treatment include, among others: physical exam, x-rays, and/or surgical intervention. The patient elects to proceed with this endoscopic procedure. DESCRIPTION OF PROCEDURE: During intra-op preparation period all mechanical medical equipment was checked for proper function. Hand hygiene and appropriate measures for infection prevention was taken. After the risks, benefits and alternatives of the procedure were thoroughly explained, Informed consent was verified, confirmed and timeout was successfully executed by the treatment team. The patient was anesthetized with topical anesthesia and the [id number] ([id number]) endoscope was introduced through the mouth and advanced to the second portion of the duodenum. The instrument was slowly withdrawn as the mucosa was fully examined. The stomach was then inflated with air, and by a combination of transillumination and manual palpation, the site for the gastrostomy tube placement was selected and marked on the anterior abdominal wall. The skin of the anterior abdomen was surgically prepped and draped with sterile towels. Utilizing strict sterile technique, the selected site was then anesthetized with 1% xylocaine by injection into the skin and subcutaneous tissue. A 1 cm incision was made through the skin and subcutaneous tissue, and the needle/cannula assembly was then passed through the abdominal wall and through the anterior wall of the stomach, maintaining visualization with the endoscope. A snare device previously placed through the instrument channel was then opened and placed around the cannula, the needle was removed, and the insertion wire was passed through the cannula and into the stomach lumen. The snare was then loosened from the cannula, and repositioned to snare the insertion wire. The snare was then pulled up to the endoscope distal tip, and the scope was then withdrawn bringing with it the snare and insertion wire. The insertion wire was then released from the snare, and then loop-attached to the PEG PULL gastrostomy tube. Using the pull technique, the G-tube was then pulled into place by traction on the insertion wire at the abdominal wall end. The G-tube insertion site was then cleansed once again, and the external bolster was placed over the tube to secure it to the abdominal wall. A sterile dressing was then applied, and the procedure terminated. Retroflexion was not performed. The gastroscope was then slowly withdrawn and removed. ADVERSE EVENT: There were no complications. IMPRESSIONS: RECOMMENDATIONS: 1. anti-reflux regimen 2. acid suppression therapy 3. avoid NSAIDS 4. follow PEG suggestions 5. begin feeding tomorrow REPEAT EXAM: Shailesh Romero DR eSigned: Shailesh Romero DR 07/17/2021 1:28 PM cc: CPT CODES: ICD9 CODES: PATIENT NAME: Mitch Jim MR#: [id number]
[2021-07-17] MEDS: DEXMEDETOMIDINE HCL 200 MCG in NA CHLORIDE 0.9% 98 ML IV SCH ×2 (14:30→22:47)
[2021-07-17] MEDS: OXYBUTYNIN CHLORIDE 5 MG TAB PO SCH (20:06)
[2021-07-17] MEDS: TERAZOSIN HCL 1 MG CAP PO SCH (20:08)
[2021-07-17] MEDS: ROSUVASTATIN 5 MG PO SCH (20:08)
[2021-07-18] MEDS: ALBUTEROL 2.5 MG/3 ML NEB SOL IH SCH ×4 (01:30→19:55)
[2021-07-18] MEDS: MORPHINE 2 MG/ML SYR IV PRN ×4 (04:23→22:27)
[2021-07-18] MEDS: LORazepam 2 MG/ML VIAL IV PRN ×2 (05:03→12:50)
[2021-07-18 05:41] LABS: Absolute Lymphocytes (CBC) 0.6 K/uL (0.7-4.9); Hematocrit 32.7 % (39.6-49.0); Lymphocytes % 6.2 % (15.3-44.8); MPV 7.8 fL (7.6-11.3); RBC Red Blood Cell Count 3.93 M/uL (4.33-5.43)
[2021-07-18 05:49] LABS: BUN Blood Urea Nitrogen 14 mg/dL (7-18); Bicarbonate 31 mmol/L (21-32); Glucose Level 160 mg/dL (74-106); Potassium 4.1 mmol/L (3.5-5.1); Sodium Level 133 mmol/L (136-145)
[2021-07-18 05:50] LABS: Magnesium 1.4 mg/dL (1.8-2.4)
[2021-07-18] MEDS: PANTOPRAZOLE 40MG TABLET PO SCH (06:00)
--- NOTE | 2021-07-18 06:52 | P.PN ---
Date of Service: 07/17/21 Subjective Patient is confused and lethargic. is at bedside. Patient is very frail and cachectic. Patient had been active prior to this but his prognosis is very poor. He has a chest tube in place. Nutritional status is very poor. PEG tube is pending. Long-term prognosis is poor. Physical Examination - Vital Signs Reviewed - Physical Exam General: Cachectic, Other (agitated) HEENT: Atraumatic, Normocephalic Respiratory: Diminished Cardiovascular: Regular rate/rhythm, Normal S1 S2, Other (tachycardic) Musculoskeletal: No clubbing, No swelling, No contractures, No erythema Assessment And Plan - Current Problems (Diagnosis) (1) Acute hypoxemic respiratory failure Current Visit: Yes Status: Acute (2) Bilateral pneumonia Current Visit: Yes Status: Acute (3) Atrial fibrillation Current Visit: Yes Status: Acute (4) Stroke, recent, without late effect Current Visit: Yes Status: Acute Physician Review Additional Text: Assessment: 1. Acute hypoxemic respiratory failure - PE ruled out 2. Bilateral pneumonia 3. Acute encephalopathy 4. Rapid atrial fibrillation 5. Aphasia 6. Recent stroke 7. Severe malnutrition Plan: -Started on diltiazem drip for rapid afib; weaned off -OFF NIV and now on 3L; continue -Chest tube management as per Dr Romero. -PEG tube in placement pending; -Continue sitter -Delirium protocol: allow sunlight during the day, minimize sedation, reorientation -Continue IV steroid; wean off -Bacterial pneumonia is unlikely with a negative procalcitonin -Nutrition and TASSEL MAKING MACHINE OPERATOR recommendations appreciated
--- NOTE | 2021-07-18 06:53 | P.PN ---
Date of Service: 07/18/21 Subjective Patient had PEG tube placement yesterday. Possibly start tube feeding today Physical Examination - Vital Signs Reviewed - Physical Exam General: Cachectic, Other (agitated) HEENT: Atraumatic, Normocephalic Respiratory: Diminished; CT in place on left Cardiovascular: irreg, irreg, Normal S1 S2, Other (tachycardic) GI: Soft nontender and PEG tube in place Musculoskeletal: No clubbing, No swelling, No contractures, No erythema Assessment And Plan - Current Problems (Diagnosis) (1) Acute hypoxemic respiratory failure Current Visit: Yes Status: Acute (2) Bilateral pneumonia Current Visit: Yes Status: Acute (3) Atrial fibrillation Current Visit: Yes Status: Acute (4) Stroke, recent, without late effect Current Visit: Yes Status: Acute Physician Review Additional Text: Assessment: 1. Acute hypoxemic respiratory failure 2. Bilateral pneumonia 3. Acute encephalopathy 4. Rapid atrial fibrillation 5. Aphasia 6. Acute CVA 7. Severe malnutrition Plan: -Started on diltiazem drip for rapid afib; weaned off -OFF NIV and now on 3L; continue -Chest tube management as per Dr Romero. -PEG tube in placement pending; -Continue sitter -Delirium protocol: allow sunlight during the day, minimize sedation, reorientation -Continue IV steroid; wean off -Bacterial pneumonia is unlikely with a negative procalcitonin -Nutrition and DATA MINING ANALYST recommendations appreciated
--- NOTE | 2021-07-18 07:18 | RAD REPORT ---
EXAM DESCRIPTION: RAD - Chest Single View - 07/18/2021 5:41 am CLINICAL HISTORY: LEFT thoracostomy tube placed COMPARISON: Portable 07/17/2021, portable 07/16/2021 TECHNIQUE: AP portable chest image was obtained 07/18/2021 5:41 am . FINDINGS: Interstitial and patchy alveolar opacities remain in the right hemithorax. No new or progr essive right lung field finding. There is slight left shift of the trachea. Complete left hemithorax opacification has developed. No left-sided pneumothorax seen. Anterior pneumothorax can be occult on portable imaging. The right-sided small bore chest tube is positioned in the left midchest. Interval change could be reaccumulation of fluid from a diminished or nonfunctioning chest tube. Left upper lo be and left lower lobe atelectasis from endobronchial occlusion or compressive atelectasis also possi ble. Bleeding into the pleural space cannot be excluded given the rapid change from prior day. Correl ation is needed with volume of tube output as well as appearance of chest tube content. Heart is fully obscured by the left hemithorax opacification. IMPRESSION: Complete left hemithorax opacification has developed new from prior imaging. Atelectasis and reaccumulation of fluid would be most likely. Leading into the pleural space is a pot ential etiology. Small bore chest tube is positioned in the mid chest.
[2021-07-18] MEDS: DEXMEDETOMIDINE HCL 200 MCG in NA CHLORIDE 0.9% 98 ML IV SCH ×3 (07:27→23:11)
[2021-07-18 07:55] LABS: Blood Morphology Comment NOT SEEN (NOT SEEN); Platelet Estimate ADEQ
--- NOTE | 2021-07-18 08:47 | EKG ---
Test Date: 2021-07-16 Test Time: 08:20:13 [employer]: MEASUREMENT RESULTS: Intervals: Rate: 117 SC: QRSD: 130 QT: 350 QTc: 488 [place]: P: SC: QRS: -85 T: 77 INTERPRETIVE STATEMENTS: Atrial fibrillation with rapid ventricular response with premature ventricular or aberrantly conducted complexes Left axis deviation Right bundle branch block Inferior infarct, age undetermined Anterior infarct, age undetermined Abnormal ECG Compared to ECG 07/11/2021 11:33:33 Ventricular premature complex(es) now present T-wave abnormality no longer present Possible ischemia no longer present Myocardial infarct finding still present Electronically Signed On 07-18-21 08:42:39 CDT by James Valdez
[2021-07-18] MEDS: CEFTRIAXONE 1,000 MG in NA CHLORIDE 0.9% 50 ML IVPB SCH (09:44)
[2021-07-18] MEDS: METHYLPREDNISOLONE 40 MG INJ IV SCH ×2 (09:44→20:26)
[2021-07-18] MEDS: NICOTINE 14 MG/PAT TD SCH (09:44)
[2021-07-18] MEDS: THIAMINE 200 MG/2 ML INJ IVP SCH ×2 (09:44→20:26)
[2021-07-18] MEDS: D5 0.45 NS 1,000 ML IV SCH (11:03)
--- NOTE | 2021-07-18 11:36 | P.PN ---
Subjective Date of Service: 07/18/21 Chief Complaint: Delirium Condition stable patient is on a Precedex drip chest x-ray shows complete opacification of the left hemithorax chest tube is in place Review of Systems is unable to be obtained Physical Examination - Vital Signs Temperature: 97.1 F Blood Pressure: 134/87 Pulse: 83 Respirations: 21 Pulse Ox (%): 91 - Physical Exam General: Unresponsive Respiratory: Diminished (Bronchial breathing on the left side) Cardiovascular: No edema, Irregular heart rate/rhythm Assessment And Plan - Current Problems (Diagnosis) (1) Pleural effusion Current Visit: Yes Status: Acute Plan: Chest tube in place chest x-ray shows complete opacification of the left side plan for bronchoscopy tomorrow rule out for the possibility of an obstruction we will plan for chest percussion (2) COPD (chronic obstructive pulmonary disease) Current Visit: Yes Status: Acute Plan: PEG tube was done to feedings as per general surgery Qualifiers: Emphysema type: unspecified
[2021-07-18] MEDS ORDERED: JEVITY 1.2 CAL LIQUID 1,000 ML BOT FT SCH (13:47)
[2021-07-18] MEDS: Magnesium Sulfate 2gm IVPB 2 G/50 ML BAG IV SCH ×2 (14:02→15:21)
--- NOTE | 2021-07-18 19:52 | P.PN ---
Subjective Date of Service: 07/18/21 Chief Complaint: Delirium Subjective: No new changes (patient remains confused, worsening opacification of LEFT hemithorax) Physical Examination - Vital Signs Temperature: 97.0 F Blood Pressure: 141/63 Pulse: 94 Respirations: 19 Pulse Ox (%): 97 - Physical Exam General: Alert, Demented, Confused Respiratory: Other (decreased breath sounds on LEFT, chest tube on water seal) Gastrointestinal: Other (soft, mild tenderness, PEG tube in place. ) Assessment And Plan - Current Problems (Diagnosis) (1) Pleural effusion Current Visit: Yes Status: Acute Plan: - continue thoracostomy tube on suction for now - daily chest x rays - continue medical management Malnutrition - PEG placed, start jevity 1.2 @ 20cc/hr. advance per mcat tutor recommendations
[2021-07-18] MEDS: IPRATROPIUM BROM 0.5MG/2.5ML NEB PRN (19:55)
[2021-07-18] MEDS: ROSUVASTATIN 5 MG PO SCH (20:25)
[2021-07-18] MEDS: TERAZOSIN HCL 1 MG CAP PO SCH (20:25)
[2021-07-18] MEDS: OXYBUTYNIN CHLORIDE 5 MG TAB PO SCH (20:25)
[2021-07-18] MEDS ORDERED: LORazepam 2 MG/ML VIAL IV PRN (22:23)
[2021-07-19] MEDS: HALOPERIDOL LACT 5 MG/ML INJ IV PRN ×3 (00:12→20:32)
[2021-07-19] MEDS ORDERED: MORPHINE 4 MG/ML SYR IV ONE (00:35)
[2021-07-19] MEDS ORDERED: WATER FOR INJ,STERILE 10 ML IM PRN (01:28)
[2021-07-19] MEDS: ALBUTEROL 2.5 MG/3 ML NEB SOL IH SCH ×4 (02:00→20:30)
[2021-07-19] MEDS: D5 0.45 NS 1,000 ML IV SCH ×2 (02:03→11:35)
[2021-07-19] MEDS: MORPHINE 2 MG/ML SYR IV PRN ×3 (03:33→12:27)
[2021-07-19] MEDS: DEXMEDETOMIDINE HCL 200 MCG in NA CHLORIDE 0.9% 98 ML IV SCH ×2 (04:06→11:48)
[2021-07-19 05:49] LABS: LD, PLEURAL FLUID 53 U/L; TOTAL PROTEIN, PLEURAL FLUID <3.0 g/dL
[2021-07-19] MEDS: PANTOPRAZOLE 40MG TABLET PO SCH (06:00)
[2021-07-19] MEDS: NICOTINE 14 MG/PAT TD SCH (08:10)
[2021-07-19] MEDS: THIAMINE 200 MG/2 ML INJ IVP SCH (08:11)
[2021-07-19] MEDS: METHYLPREDNISOLONE 40 MG INJ IV SCH (08:11)
[2021-07-19] MEDS: CEFTRIAXONE 1,000 MG in NA CHLORIDE 0.9% 50 ML IVPB SCH (08:12)
--- NOTE | 2021-07-19 08:22 | RAD REPORT ---
EXAM DESCRIPTION: RAD - Chest Single View - 07/19/2021 5:55 am CLINICAL HISTORY: LEFT thoracostomy tube placed Chest pain. COMPARISON: Chest Single View dated 07/18/2021; Chest Single View dated 07/17/2021; Chest Single View dated 07/16/2021; Chest Single View dated 07/15/2021 FINDINGS: Portable technique limits examination quality. Left-sided small bore chest tube is in place. Significant reduction is seen in the left pleural effus ion since yesterday's study. Mild to moderate bilateral pulmonary opacities are present, likely pneum onia. The heart is moderately enlarged.
[2021-07-19] MEDS: ZIPRASIDONE MESYLA 20 MG/VIAL IM PRN ×3 (09:14→23:39)
[2021-07-19 10:56] LABS: Absolute Lymphocytes (CBC) 0.9 K/uL (0.7-4.9); Hematocrit 33.6 % (39.6-49.0); MPV 7.9 fL (7.6-11.3); RBC Red Blood Cell Count 3.96 M/uL (4.33-5.43)
[2021-07-19 11:07] LABS: ALT/SGPT 29 U/L (12-78); AST/SGOT 31 U/L (15-37); Albumin 2.4 g/dL (3.4-5.0); Alkaline Phosphatase 69 U/L (45-117); BUN Blood Urea Nitrogen 17 mg/dL (7-18); Bicarbonate 32 mmol/L (21-32); Bilirubin Total 0.4 mg/dL (0.2-1.0); Glucose Level 146 mg/dL (74-106); Potassium 3.5 mmol/L (3.5-5.1); Protein, Total 6.5 g/dL (6.4-8.2); Sodium Level 137 mmol/L (136-145)
[2021-07-19] MEDS ORDERED: POTASSIUM 25 MEQ EFFERV TAB FT ONE (11:47)
[2021-07-19] MEDS: JEVITY 1.5 CAL LIQUID 1,000 ML BOT RTH SCH (11:49)
--- NOTE | 2021-07-19 12:09 | P.PN ---
Subjective Date of Service: 07/19/21 Chief Complaint: Delirium Patient is improving is more alert and responsive Precedex drip chest x-ray shows lung expansion on the left side Review of Systems General: Weakness Respiratory: Shortness of Breath Physical Examination - Vital Signs Temperature: 97.0 F Blood Pressure: 136/53 Pulse: 91 Respirations: 21 Pulse Ox (%): 89 - Physical Exam General: Alert, Cooperative, Mild distress Respiratory: Diminished Cardiovascular: No edema, Normal S1 S2 Assessment And Plan - Current Problems (Diagnosis) (1) Pleural effusion Current Visit: Yes Status: Acute Plan: Chest x-ray has improved resumed atelectasis DC IV antibiotic pleural effusion is a transudate (2) COPD (chronic obstructive pulmonary disease) Current Visit: Yes Status: Acute Plan: On tube feeds currently stable Qualifiers: Emphysema type: unspecified (3) Atrial fibrillation Current Visit: Yes Status: Acute Plan: You have A. fib changed to metoprolol resume Eliquis DC'd IV diltiazem add low- dose metoprolol DC IV fluid
[2021-07-19] MEDS ORDERED: QUETIAPINE 25 MG TAB PO ONE (12:15)
[2021-07-19] MEDS: SPIRONOLACTONE 25 MG TABLET PO SCH (12:25)
[2021-07-19] MEDS: OLANZapine 2.5 MG TAB PO PRN ×2 (15:43→23:21)
[2021-07-19] MEDS: METOPROLOL TAR 25 MG TAB PO SCH (18:22)
[2021-07-19] MEDS: IPRATROPIUM BROM 0.5MG/2.5ML NEB PRN (20:30)
[2021-07-19] MEDS: ROSUVASTATIN 5 MG PO SCH (21:00)
[2021-07-19] MEDS: QUETIAPINE 25 MG TAB PO SCH (21:08)
[2021-07-19] MEDS: OXYBUTYNIN CHLORIDE 5 MG TAB PO SCH (21:08)
[2021-07-19] MEDS: TERAZOSIN HCL 1 MG CAP PO SCH (21:08)
[2021-07-19] MEDS: APIXABAN 5 MG TABLET PO SCH (21:08)
[2021-07-19] MEDS: predniSONE 20 MG TAB PO SCH (21:08)
[2021-07-20] MEDS: ALBUTEROL 2.5 MG/3 ML NEB SOL IH SCH ×4 (01:55→20:30)
[2021-07-20 05:42] LABS: Absolute Lymphocytes (CBC) 0.3 K/uL (0.7-4.9); Lymphocytes % 1.9 % (15.3-44.8); RBC Red Blood Cell Count 3.96 M/uL (4.33-5.43)
[2021-07-20 05:59] LABS: ALT/SGPT 31 U/L (12-78); AST/SGOT 26 U/L (15-37); Albumin 2.5 g/dL (3.4-5.0); Alkaline Phosphatase 75 U/L (45-117); BUN Blood Urea Nitrogen 18 mg/dL (7-18); Bicarbonate 34 mmol/L (21-32); Bilirubin Total 0.5 mg/dL (0.2-1.0); Glucose Level 187 mg/dL (74-106); Magnesium 1.9 mg/dL (1.8-2.4); Potassium 4.5 mmol/L (3.5-5.1); Protein, Total 6.8 g/dL (6.4-8.2); Sodium Level 136 mmol/L (136-145)
[2021-07-20] MEDS: PANTOPRAZOLE 40MG TABLET PO SCH (06:13)
[2021-07-20] MEDS: METOPROLOL TAR 25 MG TAB PO SCH ×2 (06:13→17:35)
--- NOTE | 2021-07-20 07:32 | RAD REPORT ---
EXAM DESCRIPTION: RAD - Chest Single View - 07/20/2021 6:00 am CLINICAL HISTORY: LEFT thoracostomy tube placed COMPARISON: Portable 07/19/2021 TECHNIQUE: AP portable chest image was obtained 07/20/2021 6:00 am . FINDINGS: Left-side small bore chest tube remains in place. No change in positioning. Retrocardiac l eft base remains increased in density, probably atelectasis. Overall improved aeration seen in both l neeru haro. Cardiomediastinal silhouette is stable. No identifiable pneumothorax. No acute bony abnor mality seen. No acute aortic findings suspected. IMPRESSION: Improved aeration of both lung haro since prior day imaging. Retrocardiac left base re neida dense, possibly pneumonia or atelectasis. No change in positioning of the small bore left-sided chest tube.
[2021-07-20] MEDS: MORPHINE 2 MG/ML SYR IV PRN ×2 (07:59→12:21)
[2021-07-20] MEDS: SPIRONOLACTONE 25 MG TABLET PO SCH (08:56)
[2021-07-20] MEDS: NICOTINE 14 MG/PAT TD SCH (08:56)
[2021-07-20] MEDS: predniSONE 20 MG TAB PO SCH ×2 (08:56→20:18)
[2021-07-20] MEDS: APIXABAN 5 MG TABLET PO SCH ×2 (08:56→20:18)
[2021-07-20] MEDS: QUETIAPINE 25 MG TAB PO SCH ×2 (08:56→20:17)
[2021-07-20] MEDS: OLANZapine 2.5 MG TAB PO PRN ×2 (14:07→22:43)
[2021-07-20] MEDS: ZIPRASIDONE MESYLA 20 MG/VIAL IM PRN (14:43)
--- NOTE | 2021-07-20 19:44 | P.PN ---
Subjective Date of Service: 07/19/21 Chief Complaint: Delirium Subjective: Improving Physical Examination - Vital Signs Temperature: 98.6 F Blood Pressure: 139/82 Pulse: 80 Respirations: 24 Pulse Ox (%): 95 - Physical Exam General: Alert, Confused, Delirious Respiratory: Other (improved, LEFT chest tube in place) Gastrointestinal: Other (PEG in place, functional) Assessment And Plan - Current Problems (Diagnosis) (1) Pleural effusion Current Visit: Yes Status: Acute Plan: - continue thoracostomy tube on water seal will DC soon - daily chest x rays - continue medical management Malnutrition - PEG placed, continue jevity 1.2 @ advance per domestic technician recommendations
[2021-07-20] MEDS: OXYBUTYNIN CHLORIDE 5 MG TAB PO SCH (20:17)
[2021-07-20] MEDS: TERAZOSIN HCL 1 MG CAP PO SCH (20:17)
[2021-07-20] MEDS: IPRATROPIUM BROM 0.5MG/2.5ML NEB PRN (20:40)
[2021-07-20] MEDS: ROSUVASTATIN 5 MG PO SCH (20:49)
[2021-07-21] MEDS: ALBUTEROL 2.5 MG/3 ML NEB SOL IH SCH ×4 (02:10→19:56)
[2021-07-21] MEDS: ZIPRASIDONE MESYLA 20 MG/VIAL IM PRN ×2 (05:00→14:12)
[2021-07-21 05:18] LABS: Absolute Lymphocytes (CBC) 1.8 K/uL (0.7-4.9); Lymphocytes % 12.4 % (15.3-44.8); RBC Red Blood Cell Count 4.06 M/uL (4.33-5.43)
[2021-07-21] MEDS: METOPROLOL TAR 25 MG TAB PO SCH ×2 (05:32→17:18)
[2021-07-21] MEDS: PANTOPRAZOLE 40MG TABLET PO SCH (05:32)
[2021-07-21 05:33] LABS: BUN Blood Urea Nitrogen 24 mg/dL (7-18); Bicarbonate 34 mmol/L (21-32); Glucose Level 145 mg/dL (74-106); Magnesium 1.6 mg/dL (1.8-2.4); Potassium 4.8 mmol/L (3.5-5.1); Sodium Level 130 mmol/L (136-145)
--- NOTE | 2021-07-21 07:42 | P.PN ---
Date of Service: 07/19/21 Subjective Patient start tube feedings today. Patient still very agitated so we added Seroquel. Chest tube still in place. Possible waterseal in a.m. Awaiting for placement at nursing facility Physical Examination - Vital Signs Reviewed - Physical Exam General: Cachectic, Other (agitated) HEENT: Atraumatic, Normocephalic Respiratory: Diminished; CT in place on left Cardiovascular: irreg, irreg, Normal S1 S2, Other (tachycardic) GI: Soft nontender and PEG tube in place Musculoskeletal: No clubbing, No swelling, No contractures, No erythema Assessment And Plan - Current Problems (Diagnosis) (1) Acute hypoxemic respiratory failure Current Visit: Yes Status: Acute (2) Bilateral pneumonia Current Visit: Yes Status: Acute (3) Atrial fibrillation Current Visit: Yes Status: Acute (4) Stroke, recent, without late effect Current Visit: Yes Status: Acute Physician Review Additional Text: Assessment: 1. Acute hypoxemic respiratory failure 2. Bilateral pneumonia 3. Acute encephalopathy 4. Rapid atrial fibrillation 5. Aphasia 6. Acute CVA 7. Severe malnutrition Plan: -Started on diltiazem drip for rapid afib; weaned off; heart rate stable -OFF NIV and now on 3L; O2 per protocol -Chest tube management as per Dr Romero. -PEG tube placed and pending tube feeds -Continue sitter -Delirium protocol: allow sunlight during the day, minimize sedation, reorientation -Wean off of steroids -Bacterial pneumonia is unlikely with a negative procalcitonin -Nutrition and SALES ASSISTANT INSTITUTIONAL SALES recommendations appreciated -Placement at [facility] pending
--- NOTE | 2021-07-21 07:45 | P.PN ---
Date of Service: 07/20/21 Subjective Added Seroquel and patient mentation is somewhat better. Not as combative. Chest tube to waterseal. May possibly be able to remove it tomorrow. Physical Examination - Vital Signs Reviewed - Physical Exam General: Cachectic, Other (agitated) HEENT: Atraumatic, Normocephalic Respiratory: Diminished; CT in place on left Cardiovascular: irreg, irreg, Normal S1 S2, Other (tachycardic); rate controlled GI: Soft nontender and PEG tube in place Musculoskeletal: No clubbing, No swelling, No contractures, No erythema Assessment And Plan - Current Problems (Diagnosis) (1) Acute hypoxemic respiratory failure status post pneumothorax Current Visit: Yes Status: Acute (2) Bilateral pneumonia Current Visit: Yes Status: Acute (3) Atrial fibrillation Current Visit: Yes Status: Acute (4) Stroke, recent, without late effect Current Visit: Yes Status: Acute Physician Review Additional Text: Assessment: 1. Acute hypoxemic respiratory failure status post pneumothorax 2. Bilateral pneumonia 3. Acute encephalopathy 4. Rapid atrial fibrillation 5. Aphasia 6. Acute CVA 7. Severe malnutrition status post PEG tube placement Plan: -Continue monitoring tachyarrhythmias; -OFF NIV and now on 3L; O2 per protocol -Chest tube management as per Dr Romero. On waterseal and possibly DC tomorrow -PEG tube placed and started tube feeds -Continue sitter -Delirium protocol: allow sunlight during the day, minimize sedation, reorientation;started Seroquel -Wean off of steroids -Bacterial pneumonia is unlikely with a negative procalcitonin -Nutrition and POLITICAL SCIENCE CHAIR recommendations appreciated -Placement at [facility] pending
--- NOTE | 2021-07-21 07:46 | P.PN ---
Date of Service: 07/21/21 Subjective Patient continues to improve. Will transfer to general medical floor. Physical Examination - Vital Signs Reviewed - Physical Exam General: Cachectic, Other (agitated) HEENT: Atraumatic, Normocephalic Respiratory: Diminished; CT in place on left Cardiovascular: irreg, irreg, Normal S1 S2, Other (tachycardic); rate controlled GI: Soft nontender and PEG tube in place Musculoskeletal: No clubbing, No swelling, No contractures, No erythema Assessment And Plan - Current Problems (Diagnosis) (1) Acute hypoxemic respiratory failure status post pneumothorax Current Visit: Yes Status: Acute (2) Bilateral pneumonia Current Visit: Yes Status: Acute (3) Atrial fibrillation Current Visit: Yes Status: Acute (4) Stroke, recent, without late effect Current Visit: Yes Status: Acute Physician Review Additional Text: Assessment: 1. Acute hypoxemic respiratory failure status post pneumothorax 2. Bilateral pneumonia 3. Acute encephalopathy 4. Rapid atrial fibrillation 5. Aphasia 6. Acute CVA 7. Severe malnutrition status post PEG tube placement Plan: -Continue monitoring tachyarrhythmias; -Continue O2 per protocol -Chest tube management as per Dr Romero. Will be removed today -PEG tube placed and started tube feeds; trying to get to goal today -Continue with Seroquel -Delirium protocol: allow sunlight during the day, minimize sedation, reorientation; -Wean off of steroids -Placement at [facility]
--- NOTE | 2021-07-21 07:49 | RAD REPORT ---
[facility] CLINICAL HISTORY: Chest pain COMPARISON: July 20, 2021 FINDINGS: No significant change in the bilateral pulmonary opacities. Mild left lung volume loss pe rsists. Heart remains enlarged. Left chest tube in place without pneumothorax
[2021-07-21] MEDS: SPIRONOLACTONE 25 MG TABLET PO SCH (09:06)
[2021-07-21] MEDS: QUETIAPINE 25 MG TAB PO SCH ×2 (09:06→20:33)
[2021-07-21] MEDS: APIXABAN 5 MG TABLET PO SCH ×2 (09:06→20:33)
[2021-07-21] MEDS: predniSONE 20 MG TAB PO SCH (09:06)
[2021-07-21] MEDS: NICOTINE 14 MG/PAT TD SCH (09:06)
--- NOTE | 2021-07-21 09:57 | P.PN ---
Subjective Date of Service: 07/21/21 Chief Complaint: Delirium Patient is improving has mild agitation chest tube removed this morning Review of Systems is unable to be obtained Physical Examination - Vital Signs Temperature: 97.1 F Blood Pressure: 140/66 Pulse: 86 Respirations: 28 Pulse Ox (%): 89 - Physical Exam General: Alert, Cooperative, Cachectic Respiratory: Diminished Cardiovascular: No edema, Normal S1 S2 Assessment And Plan - Current Problems (Diagnosis) (1) Pleural effusion Current Visit: Yes Status: Acute Plan: Chest x-ray has improved resumed atelectasis DC IV antibiotic pleural effusion is a transudate chest x-ray has improved (2) COPD (chronic obstructive pulmonary disease) Current Visit: Yes Status: Acute Plan: On tube feeds currently stable currently stable reduce dose of prednisone able to be transferred to the floor needs physical therapy Qualifiers: Emphysema type: unspecified (3) Atrial fibrillation Current Visit: Yes Status: Acute Plan: Patient has A. fib rate controlled continue with beta-blockers and anticoagulation
--- NOTE | 2021-07-21 11:48 | RAD REPORT ---
EXAM DESCRIPTION: RADChest Single View07/21/2021 11:08 am CLINICAL HISTORY: Chest tube removal IMPRESSION: Left chest tube has been removed. There is an equivocal tiny left apical pneumothorax.
[2021-07-21] MEDS: JEVITY 1.5 CAL LIQUID 1,000 ML BOT RTH SCH (12:27)
[2021-07-21] MEDS: ROSUVASTATIN 5 MG PO SCH (20:28)
[2021-07-21] MEDS: predniSONE 10 MG TAB PO SCH (20:32)
[2021-07-21] MEDS: OXYBUTYNIN CHLORIDE 5 MG TAB PO SCH (20:33)
[2021-07-21] MEDS: TERAZOSIN HCL 1 MG CAP PO SCH (20:33)
[2021-07-21] MEDS ORDERED: QUETIAPINE 25 MG TAB PO SCH (21:00)
[2021-07-22] MEDS: ALBUTEROL 2.5 MG/3 ML NEB SOL IH SCH ×4 (02:08→20:00)
[2021-07-22] MEDS: ZIPRASIDONE MESYLA 20 MG/VIAL IM PRN ×2 (03:05→17:48)
[2021-07-22] MEDS: METOPROLOL TAR 25 MG TAB PO SCH ×2 (05:44→17:51)
[2021-07-22] MEDS: PANTOPRAZOLE 40MG TABLET PO SCH (05:44)
[2021-07-22 06:24] VITALS: BMI 13.7
[2021-07-22] MEDS: predniSONE 10 MG TAB PO SCH ×2 (07:59→20:56)
[2021-07-22] MEDS: QUETIAPINE 25 MG TAB PO SCH ×2 (07:59→20:56)
[2021-07-22] MEDS: NICOTINE 14 MG/PAT TD SCH (08:00)
[2021-07-22] MEDS: APIXABAN 5 MG TABLET PO SCH ×2 (08:00→20:56)
[2021-07-22] MEDS: JEVITY 1.5 CAL LIQUID 1,000 ML BOT RTH SCH (08:33)
[2021-07-22] MEDS: TERAZOSIN HCL 1 MG CAP PO SCH (20:56)
[2021-07-22] MEDS: OXYBUTYNIN CHLORIDE 5 MG TAB PO SCH (20:56)
[2021-07-22] MEDS: ROSUVASTATIN 5 MG PO SCH (20:57)
[2021-07-23] MEDS: LORazepam 2 MG/ML VIAL IV PRN (01:45)
[2021-07-23] MEDS: ALBUTEROL 2.5 MG/3 ML NEB SOL IH SCH ×4 (02:10→20:30)
[2021-07-23] MEDS: METOPROLOL TAR 25 MG TAB PO SCH ×2 (05:14→18:44)
[2021-07-23] MEDS: PANTOPRAZOLE 40MG TABLET PO SCH (05:16)
[2021-07-23] MEDS: NICOTINE 14 MG/PAT TD SCH (09:31)
[2021-07-23] MEDS: QUETIAPINE 25 MG TAB PO SCH ×2 (09:31→22:11)
[2021-07-23] MEDS: predniSONE 10 MG TAB PO SCH ×2 (09:31→22:11)
[2021-07-23] MEDS: APIXABAN 5 MG TABLET PO SCH ×2 (09:31→22:11)
--- NOTE | 2021-07-23 12:13 | P.PN ---
Subjective Date of Service: 07/20/21 Chief Complaint: Delirium Subjective: Improving Physical Examination - Vital Signs Temperature: 96.7 F Blood Pressure: 126/57 Pulse: 73 Respirations: 24 Pulse Ox (%): 95 - Physical Exam General: Alert, In no apparent distress, Demented, Confused Respiratory: Other (improving, RIGHT chest tube removed today @ bedside) Cardiovascular: Regular rate/rhythm Gastrointestinal: Other (PEG in place, no issues, functioning well) Assessment And Plan - Current Problems (Diagnosis) (1) Pleural effusion Current Visit: Yes Status: Acute Plan: - DC chest tube today @ bedside - repeat post removal chest tube - continue medical management Malnutrition - PEG placed, continue jevity 1.2 @ advance per grain combiner recommendations
--- NOTE | 2021-07-23 12:14 | P.PN ---
Subjective Date of Service: 07/21/21 Chief Complaint: Delirium Subjective: Improving (no pulmonary issues) Physical Examination - Vital Signs Temperature: 96.7 F Blood Pressure: 126/57 Pulse: 73 Respirations: 24 Pulse Ox (%): 95 - Physical Exam General: Alert, Demented, Confused Respiratory: Clear to auscultation bilaterally, Normal air movement Gastrointestinal: Other (PEG in place, no issues, functioning well) Assessment And Plan - Current Problems (Diagnosis) (1) Pleural effusion Current Visit: Yes Status: Acute Plan: - continue medical management Malnutrition - PEG placed, continue jevity 1.2 @ advance per case management director recommendations
--- NOTE | 2021-07-23 12:15 | P.PN ---
Subjective Date of Service: 07/23/21 Chief Complaint: Delirium Subjective: Improving Physical Examination - Vital Signs Temperature: 96.7 F Blood Pressure: 126/57 Pulse: 73 Respirations: 24 Pulse Ox (%): 95 - Physical Exam General: Alert, In no apparent distress, Demented, Confused Respiratory: Clear to auscultation bilaterally, Normal air movement Gastrointestinal: Other (PEG in place, no issues, functioning well) Assessment And Plan - Current Problems (Diagnosis) (1) Pleural effusion Current Visit: Yes Status: Acute Plan: - continue medical management Malnutrition - PEG placed, continue jevity 1.2 @ advance per timber deadener recommendations
--- NOTE | 2021-07-23 12:15 | P.PN ---
Subjective Date of Service: 07/22/21 Chief Complaint: Delirium Subjective: Improving Physical Examination - Vital Signs Temperature: 96.7 F Blood Pressure: 126/57 Pulse: 73 Respirations: 24 Pulse Ox (%): 95 - Physical Exam General: Alert, In no apparent distress, Demented, Confused Respiratory: Clear to auscultation bilaterally, Normal air movement Gastrointestinal: Other (PEG in place, no issues, functioning well) Assessment And Plan - Current Problems (Diagnosis) (1) Pleural effusion Current Visit: Yes Status: Acute Plan: - continue medical management Malnutrition - PEG placed, continue jevity 1.2 @ advance per senior quality methods specialist recommendations
--- NOTE | 2021-07-23 17:12 | P.PN ---
Date of Service: 07/22/21 Subjective Clinically doing well. Chest tube removed. PEG tube feedings tolerated. Continue with medication for confusion. At this time, patient is clinically doing well and patient should be stable for discharge. Physical Examination - Vital Signs Reviewed - Physical Exam General: Cachectic, Stable HEENT: WNL Respiratory: Basilar crackles Cardiovascular: Regular rate and rhythm no murmurs GI: Soft nontender and PEG tube in place Musculoskeletal: No clubbing, No swelling, No contractures, No erythema Assessment And Plan - Current Problems (Diagnosis) (1) Acute hypoxemic respiratory failure status post pneumothorax Current Visit: Yes Status: Acute (2) Bilateral pneumonia Current Visit: Yes Status: Acute (3) Atrial fibrillation Current Visit: Yes Status: Acute (4) Stroke, recent, without late effect Current Visit: Yes Status: Acute Physician Review Additional Text: Assessment: 1. Acute hypoxemic respiratory failure status post pneumothorax; chest tube has been removed 2. Bilateral pneumonia 3. Vascular dementia 4. Rapid atrial fibrillation; rate is controlled 5. Aphasia 6. History of stroke 7. Severe malnutrition status post PEG tube placement Plan: -Heart rate controlled -Continue nasal cannula -Chest tube removed -PEG tube feedings have been started -Continue sitter -Continue with placement -Wean off of steroids -Nutrition and C4 PLANNER recommendations appreciated -Placement at [facility] pended -Poor prognosis
--- NOTE | 2021-07-23 17:24 | P.PN ---
Date of Service: 07/23/21 Subjective Clinically doing well. Chest tube removed. PEG tube feedings tolerated. Continue with medication for confusion. At this time, patient is clinically doing well and patient should be stable for discharge once accepted to [facility]. Physical Examination - Vital Signs Reviewed - Physical Exam General: Cachectic, Stable HEENT: WNL Respiratory: Basilar crackles Cardiovascular: Regular rate and rhythm no murmurs GI: Soft nontender and PEG tube in place Musculoskeletal: No clubbing, No swelling, No contractures, No erythema Assessment And Plan - Current Problems (Diagnosis) (1) Acute hypoxemic respiratory failure status post pneumothorax Current Visit: Yes Status: Acute (2) Bilateral pneumonia Current Visit: Yes Status: Acute (3) Atrial fibrillation Current Visit: Yes Status: Acute (4) Stroke, recent, without late effect Current Visit: Yes Status: Acute Physician Review Additional Text: Assessment: 1. Acute hypoxemic respiratory failure status post pneumothorax; chest tube has been removed 2. Bilateral pneumonia 3. Vascular dementia 4. Rapid atrial fibrillation; rate is controlled 5. Aphasia 6. History of stroke 7. Severe malnutrition status post PEG tube placement Plan: -Heart rate controlled -Continue nasal cannula -Chest tube removed -PEG tube feedings have been started -Continue sitter -Continue with placement -Wean off of steroids -Nutrition and LIFE MANAGEMENT TEACHER recommendations appreciated -Placement at [facility] pended -Poor prognosis
[2021-07-23] MEDS: ZIPRASIDONE MESYLA 20 MG/VIAL IM PRN (19:59)
[2021-07-23] MEDS: IPRATROPIUM BROM 0.5MG/2.5ML NEB PRN (20:30)
[2021-07-23] MEDS: ROSUVASTATIN 5 MG PO SCH (21:00)
[2021-07-23] MEDS: TERAZOSIN HCL 1 MG CAP PO SCH (22:11)
[2021-07-23] MEDS: OXYBUTYNIN CHLORIDE 5 MG TAB PO SCH (22:12)
[2021-07-24] MEDS: ALBUTEROL 2.5 MG/3 ML NEB SOL IH SCH ×3 (01:25→14:00)
[2021-07-24] MEDS: LORazepam 2 MG/ML VIAL IV PRN ×2 (01:31→05:03)
[2021-07-24] MEDS ORDERED: HYDROCOD 2.5mg-ACETAMIN 108mg/5mL Soln PO PRN (02:29)
[2021-07-24 04:39] LABS: Absolute Lymphocytes (CBC) 0.5 K/uL (0.7-4.9); Hematocrit 30.8 % (39.6-49.0); Lymphocytes % 3.5 % (15.3-44.8); MPV 7.9 fL (7.6-11.3); RBC Red Blood Cell Count 3.77 M/uL (4.33-5.43)
[2021-07-24 04:48] LABS: BUN Blood Urea Nitrogen 29 mg/dL (7-18); Bicarbonate 33 mmol/L (21-32); Glucose Level 170 mg/dL (74-106); Magnesium 1.9 mg/dL (1.8-2.4); Potassium 4.6 mmol/L (3.5-5.1); Sodium Level 125 mmol/L (136-145)
[2021-07-24] MEDS: PANTOPRAZOLE 40MG TABLET PO SCH (05:03)
[2021-07-24] MEDS: METOPROLOL TAR 25 MG TAB PO SCH (05:03)
[2021-07-24 06:56] LABS: Blood Morphology Comment NOT SEEN (NOT SEEN); Platelet Estimate ADEQ
--- NOTE | 2021-07-24 07:31 | RAD REPORT ---
EXAM DESCRIPTION: RAD - Chest Single View - 07/24/2021 6:41 am CLINICAL HISTORY: pneumonia COMPARISON: Chest Single View dated 07/23/2021; Chest Single View dated 07/22/2021; Chest Single View dated 07/19/2021; Chest Pa And Lat (2 Views) dated 11/18/2018Chest Single View dated 07/21/2021; Chest S bert View dated 07/21/2021; Chest Single View dated 07/20/2021; Chest Single View dated 07/19/2021 FINDINGS: Lines: None. Lungs: Similar aeration lungs compared with 07/21/2021. There is some ill-defined bilateral opacities , most notable in the right side. Left lung base is partially obscured Pleural: Small effusions likely. Cardiac: Cardiomegaly Bones: No acute fractures. Other: IMPRESSION: Mild to moderate ill-defined bilateral airspace disease is similar to 07/21/2021 and pre sumably represents pneumonia. No pneumothorax .
[2021-07-24] MEDS: IPRATROPIUM BROM 0.5MG/2.5ML NEB PRN (08:08)
[2021-07-24 08:12] VITALS: TEMP 97
[2021-07-24] MEDS: APIXABAN 5 MG TABLET PO SCH (10:19)
[2021-07-24] MEDS: QUETIAPINE 25 MG TAB PO SCH (10:19)
[2021-07-24] MEDS: predniSONE 10 MG TAB PO SCH (10:19)
[2021-07-24] MEDS: NICOTINE 14 MG/PAT TD SCH (10:19)
[2021-07-24 12:16] VITALS: BP 123/55
--- NOTE | 2021-07-24 12:53 | P.DS ---
Admission Date: 07/11/21 Discharge Date: 07/24/21 Disposition: TRANSFER TO [facility] Discharge Condition: FAIR Reason for Admission: Delirium Consultations: Neurology General surgery Nutrition service Pulmonary Brief History of Present Illness: Sensorium and patient will come to the emergency room with complaint of being aphasic for 3 days. He was diagnosed with large hemorrhagic stroke and subsequently was admitted for inpatient care because of his extreme lethargy and comorbid condition. Hospital Course: All admissions record nursing for he has a diagnosis of atrial fibrillation and vascular dementia, large hemorrhagic stroke and he was also deconditioned and bedbound. He subsequently developed significant comorbid issue with tension pneumothorax requiring chest tube placement which led to respiratory failure. He also had significant ulcers in the sacral area warranting surgeon evaluation for debridement and recommendation from wound VAC Placement. He was also found to have sepsis and was started on appropriate antibiotic therapy. He had chest tube removed after [facility] significantly cleared him for pneumothorax and he also had appropriate therapy with nutrition services on board for issues with regard to his mild nausea. He had a PEG tube placed for nutrition purposes. He was deemed stable for discharge to snf today to continue wound care and complete antibiotic therapy and to follow-up with specialists as recommended for care of his comorbid condition. Vital Signs/Physical Exam: Temp Pulse Resp BP Pulse Ox 97.0 F 78 16 123/55 L 95 07/24/21 12:00 07/24/21 12:00 07/24/21 12:00 07/24/21 12:00 07/24/21 12:00 Laboratory Data at Discharge: WBC 13.3 K/uL (4.3-10.9) H 07/24/21 04:11 Hgb 9.9 g/dL (13.6-17.9) L 07/24/21 04:11 Hct 30.8 % (39.6-49.0) L 07/24/21 04:11 Plt Count 197 K/uL (152-406) 07/24/21 04:11 PT 12.3 SECONDS (9.5-12.5) 07/11/21 12:42 INR 1.12 07/11/21 12:42 APTT 34.4 SECONDS (24.3-36.9) 07/11/21 12:42 Sodium 125 mmol/L (136-145) L 07/24/21 04:11 Potassium 4.6 mmol/L (3.5-5.1) 07/24/21 04:11 BUN 29 mg/dL (7-18) H 07/24/21 04:11 Creatinine 0.56 mg/dL (0.55-1.3) 07/24/21 04:11 Glucose 170 mg/dL (74-106) H 07/24/21 04:11 Magnesium 1.9 mg/dL (1.8-2.4) 07/24/21 04:11 Total Bilirubin 0.5 mg/dL (0.2-1.0) 07/20/21 04:44 AST 26 U/L (15-37) 07/20/21 04:44 ALT 31 U/L (12-78) 07/20/21 04:44 Alkaline Phosphatase 75 U/L (45-117) 07/20/21 04:44 Cholesterol 93 mg/dL (<200) 07/14/21 11:17 Home Medications: Acetaminophen [Tylenol] 650 mg PO Q6H PRN 05/07/21 Multivitamin [Multiple Vitamins] 1 each PO DAILY 05/07/21 Albuterol Neb [Proventil 0.083% Neb Soln] 2.5 mg NEB [id number] PRN amp 05/22/21 Apixaban [Eliquis *] 2.5 mg PO BID tablet 05/22/21 Famotidine [Pepcid*] 20 mg PO BID tab 05/22/21 Ferrous Sulfate [Ferrous Sulfate Elixir*] 5 ml PO TID #450 osyr 05/22/21 Ipratropium Neb [Atrovent*] 0.5 mg NEB [id number] PRN amp 05/22/21 Jevity 1.5 Mark Liquid 237 ml FT 0500,0900,1300,1700 bot 05/22/21 Jevity 1.5 Mark Liquid 237 ml RTH 2100 bot 05/22/21 Melatonin [Children's Sleep] 5 ml PO BEDTIME #30 liquid 05/22/21 Metoprolol Tartrate [Lopressor*] 25 mg PO BID 6AM 6PM tab 05/22/21 Multivitamin Oral Liq [Theravite Liq*] 5 ml FT DAILY osyr 05/22/21 Oxybutynin Chloride [Ditropan*] 5 mg PO BEDTIME tab 05/22/21 Pantoprazole [Protonix Tab*] 40 mg PO 0600 tab 05/22/21 Rosuvastatin [Crestor*] 5 mg PO BEDTIME tab 05/22/21 Terazosin HCl [Hytrin*] 1 mg PO BEDTIME cap 05/22/21 Thiamine HCl [Vitamin B-1*] 100 mg PO DAILY tablet 05/22/21 Albuterol Neb [Proventil 0.083% Neb Soln] 2.5 mg IH [id number] amp 07/24/21 Hydrocodone/APAP Soln [Lortab Solution *] 10 ml PO Q6H PRN ml 07/24/21 Metoprolol Tartrate [Lopressor*] 25 mg PO BID 6AM 6PM tab 07/24/21 Quetiapine [Seroquel*] 25 mg PO BID tab 07/24/21 Followup: David Mcknight MD [Primary Care Provider] -
[2021-07-24 15:03] VITALS: O2SAT 90
== END 2021-07-24 14:45 | DRG 871 ==
LOC: ER 12:03 → ERHOLD 15:07 → 4TH 15:35 → 2ND 19:35 → 3RD-ICU 07-14 21:43 → 2ND 07-22 15:00
PROVIDERS: ADMIT Internal Medicine; ATTEND Internal Medicine
PROC: 0W9B30Z Drainage of Left Pleural Cavity with Drainage Device, Percutaneous Approach (ICD-10-PCS; principal; 2021-07-15)
PROC: 0DH63UZ Insertion of Feeding Device into Stomach, Percutaneous Approach (ICD-10-PCS; 2021-07-17)
PROC: 5A09357 Assistance with Respiratory Ventilation, Less than 24 Consecutive Hours, Continuous Positive Airway Pressure (ICD-10-PCS; 2021-07-20)
DX: A41.9 Sepsis, unspecified organism (principal); J96.01 Acute respiratory failure with hypoxia; J18.9 Pneumonia, unspecified organism; J93.0 Spontaneous tension pneumothorax; E43 Unspecified severe protein-calorie malnutrition; G93.41 Metabolic encephalopathy; J96.02 Acute respiratory failure with hypercapnia; I63.9 Cerebral infarction, unspecified; R47.01 Aphasia; R64 Cachexia; Z68.1 Body mass index [BMI] 19.9 or less, adult; E87.1 Hypo-osmolality and hyponatremia; J90 Pleural effusion, not elsewhere classified; J98.11 Atelectasis; J44.0 Chronic obstructive pulmonary disease with (acute) lower respiratory infection; R65.20 Severe sepsis without septic shock; R53.83 Other fatigue; I48.91 Unspecified atrial fibrillation; F01.50 Vascular dementia, unspecified severity, without behavioral disturbance, psychotic disturbance, mood disturbance, and anxiety; E87.6 Hypokalemia; E78.5 Hyperlipidemia, unspecified; I10 Essential (primary) hypertension; M62.84 Sarcopenia; D64.9 Anemia, unspecified; G89.29 Other chronic pain; M54.2 Cervicalgia; M54.50 Low back pain, unspecified; K21.9 Gastro-esophageal reflux disease without esophagitis; W19.XXXA Unspecified fall, initial encounter; Y92.239 Unspecified place in hospital as the place of occurrence of the external cause; R29.704 NIHSS score 4; F17.210 Nicotine dependence, cigarettes, uncomplicated; Z20.822 Contact with and (suspected) exposure to COVID-19; Z79.01 Long term (current) use of anticoagulants; Z79.82 Long term (current) use of aspirin; Z79.899 Other long term (current) drug therapy; Z86.73 Personal history of transient ischemic attack (TIA), and cerebral infarction without residual deficits; Z74.01 Bed confinement status
CPT/HCPCS: 36415; 70450; 71045; 71046; 71275; 76604; 80048; 80053; 82140; 82465; 82805; 82945; 82947; 83605; 83615; 83735; 83880; 84145; 84157; 84484; 85025; 85610; 85730; 86140; 86480; 87015; 87040; 87102; 87116; 87206; 87804; 88108; 88305; 92610; 93005; 93306; 94640; 94660; 94667; 94668; 94760; 96365; 97110; 97112; 97161; 97530; 99285; J0456; J1630; J1650; J2185; J2270; J2405; J2704; J2920; J2930; J3411; J3475; J3486; J7030; J7050; J7120; J7512; J7799; Q9967; U0003

== ENCOUNTER 2021-07-25 00:56 | Inpatient (IN) | payer OTHER ==
--- OUTSIDE RECORDS SUMMARY | 2021-07-25 00:58 | XMS REPORT | Continuity of Care Document ---
:1945 Author Organization [facility] t Address [address] [place] [address] Care Team Providers Name Role Phone INES Attending Clinician Unavailable Payers Payer Name Policy Type Policy Number Effective Date Expiration Date S laurie [employer] OPEN CHOICE [id number] 2000 2024 PPO 00:00:00 00:00:00 MEDICARE PART A [id number] 2009 2024 AND B 00:00:00 00:00:00 Problems This patient has no known problems. Allergies, Adverse Reactions, Alerts This patient has no known allergies or adverse reactions. Medications This patient has no known medications. Procedures This patient has no known procedures. Encounters Start End Encounter Admission Attending Care Care Encounter Source Date/Time Date/Time Type Type Clinicians Facility Department ID 2021-05-26 Outpatient [facility] [id number] [place] 15:24:16 [facility] 2021-05-26 Outpatient [facility] [id number] [place] 15:24:15 [facility] 2021-05-24 Outpatient [facility] [id number] [facility] 12:00:28 [id number] 2020-02-25 2020-02-25 Outpatient [facility] [id number] [facility] Results This patient has no known results.
[2021-07-25 01:24] LABS: Absolute Lymphocytes (CBC) 0.8 K/uL (0.7-4.9); Hematocrit 34.2 % (39.6-49.0); Lymphocytes % 5.4 % (15.3-44.8); RBC Red Blood Cell Count 4.14 M/uL (4.33-5.43)
[2021-07-25 01:40] LABS: BUN Blood Urea Nitrogen 30 mg/dL (7-18); Bicarbonate 30 mmol/L (21-32); Glucose Level 117 mg/dL (74-106); Magnesium 1.8 mg/dL (1.8-2.4); NT PRO-BNP 9300 pg/mL (<450); Potassium 4.8 mmol/L (3.5-5.1); Sodium Level 125 mmol/L (136-145); Troponin High Sensitivity 47.4 pg/mL (<58.9)
--- NOTE | 2021-07-25 01:44 | ER ---
Nurse's Notes [facility] Name: Mitch Jim Jr Age: 76 yrs Sex: Male : 1945 Arrival Date: 07/25/2021 Time: 00:58 Bed 6 Private MD: Diagnosis: Hyponatremia;Acute respiratory failure with hypoxia;Pneumonia due to other specified bacteria;Altered mental status, unspecified Presentation: 07/25 01:05 Chief complaint: EMS states: pt was d/c from upstairs 6 hours ago. retirement stated kd3 that his O2 sats "remained low" and he was irritable and sitting to the side of the bed with shortness of breath. pt d/c diagnosis of pneumonia. Coronavirus screen: Vaccine status: Patient reports receiving the 2nd dose of the covid vaccine. Ebola Screen: Patient negative for fever greater than or equal to 101.5 degrees Fahrenheit, and additional compatible Ebola Virus Disease symptoms. Initial Sepsis Screen: Does the patient meet any 2 criteria?. Risk Assessment: Do you want to hurt yourself or someone else? Patient reports no desire to harm self or others. Onset of symptoms was July 25, 2021. 01:05 Method Of Arrival: EMS: [facility] kd3 01:05 Acuity: MARYLIN 3 kd3 01:15 Initial Sepsis Screen: Does the patient have a suspected source of infection? Yes: kd3 Productive cough/pneumonia. Triage Assessment: 01:08 General: Appears in no apparent distress. Behavior is calm, cooperative. Pain: Denies kd3 pain. Respiratory: Reports shortness of breath at rest Airway is patent Trachea midline Onset: The symptoms/episode began/occurred today, the patient has moderate shortness of breath. GI: No signs and/or symptoms were reported involving the gastrointestinal system. Historical: - Home Meds: 01:08 aspirin 81 mg Oral chew 1 tab once daily [Active]; cyclobenzaprine 10 mg Oral tab 1 tab kd3 daily [Active]; gabapentin 600 mg Oral tab 1 tab 3 times per day [Active]; hydrocodone-acetaminophen 5-325 mg Oral tab 1 tab three times a day [Active]; metoprolol tartrate 25 mg Oral tab 1 tab once daily [Active]; Requip 1 mg Oral tab 1 tab daily [Active]; Symbicort 160-4.5 mcg/actuation inhalation HFAA 2 puffs 2 times per day [Active]; - PMHx: 01:08 Cerebrovascular accident; Hypertension; kd3 - PSHx: 01:08 pain pump; kd3 - Immunization history:: Adult Immunizations up to date. - Social history:: Smoking status: unknown. Screenin:14 Abuse screen: Denies threats or abuse. Denies injuries from another. Nutritional kd3 screening: No deficits noted. Tuberculosis screening: No symptoms or risk factors identified. Fall Risk IV access (20 points). Gait- Weak (10 pts.). Assessment: 01:15 Reassessment: please see triage assessment. st1 01:15 Cardiovascular: Rhythm is atrial fibrillation. Respiratory: Airway is patent kd3 Respiratory effort is unlabored, Breath sounds with crackles bilaterally. Vital Signs: 01:05 BP 102 / 86; Pulse 104; Resp 20; Pulse Ox 94% on NC; kd3 01:14 Weight 63.5 kg; Height 6 ft. 2 in. (187.96 cm); kd3 02:30 BP 109 / 68; Pulse 100; Resp 20; Pulse Ox 94% on 4 lpm NC; kd3 01:14 Body Mass Index 17.97 (63.50 kg, 187.96 cm) kd3 ED Course: 00:58 Patient arrived in ED. kd3 00:58 Mark Salter MD is Attending Physician. rn 00:58 Rudi Manuel PA is PHCP. rn 01:05 Gabrielle Rhodes, MARIELA is Primary Nurse. kd3 01:06 Inserted saline lock: 20 gauge in right forearm, using aseptic technique. st1 01:08 Triage completed. kd3 01:08 Arm band placed on right wrist. kd3 01:11 Basic Metabolic Panel Sent. st1 01:11 CBC with Diff Sent. st1 01:12 Magnesium Sent. st1 01:12 Troponin HS Sent. st1 01:14 Bed in low position. Call light in reach. Side rails up X2. kd3 01:38 XRAY Chest (1 view) In Process Unspecified. EDMS 01:43 Darien Urias MD is Hospitalizing Provider. jr8 03:20 No provider procedures requiring assistance completed. Patient admitted, IV remains in st1 place. Administered Medications: 02:57 Drug: Zosyn (piperacillin-tazobactam) 3.375 grams Route: IVPB; Infused Over: 60 mins; kd3 Site: right antecubital; 03:48 Follow up: Response: No adverse reaction; Rate change 100 ml; IV Status: Completed kd3 infusion Outcome: 01:44 Decision to Hospitalize by Provider. brodie 03:26 Admitted to Med/surg accompanied by tech, via stretcher, room 203, with oxygen, with st1 chart, Report called to MARIELA Koehler 03:26 Condition: stable 03:26 Instructed on the need for admit, Demonstrated understanding of ADMISSION 03:47 Patient left the ED. kd3 Signatures: Dispatcher [employer] EDMS Mark Salter MD MD rn Rudi Manuel PA PA jr8 Gabrielle Rhodes RN RN kd3 Brie Box, MARIELA RN st1
--- NOTE | 2021-07-25 01:45 | EDPHYS ---
Physician Documentation [facility] Name: Mitch Jim Jr Age: 76 yrs Sex: Male : 1945 Arrival Date: 07/25/2021 Time: 00:58 Bed 6 Private MD: ED Physician Mark Salter HPI: 07/25 01:10 This 76 yrs old Male presents to ER via EMS with complaints of Shortness Of Breath. jr8 01:10 The patient has shortness of breath at rest. Duration: The symptoms are continuous. jr8 Associated signs and symptoms: Pertinent positives: altered mental status. Severity of symptoms: At their worst the symptoms were moderate in the emergency department the symptoms are unchanged. The patient has experienced a previous episode. The patient has been recently seen by a physician: The patient has been recently been admitted at [facility], was discharged earlier today, for similar complaints, but despite evaluation and treatment the patient has continued symptoms. This is a 76-year-old male that arrived via EMS from shelter after being called out for agitation, altered mental status, and hypoxia. Patient was discharged from the hospital today after being here for couple weeks for pneumonia. [facility] stated that he was getting out of bed and becoming very hypoxic. Could not control him.. Historical: - Home Meds: 01:08 aspirin 81 mg Oral chew 1 tab once daily [Active]; cyclobenzaprine 10 mg Oral tab 1 tab kd3 daily [Active]; gabapentin 600 mg Oral tab 1 tab 3 times per day [Active]; hydrocodone-acetaminophen 5-325 mg Oral tab 1 tab three times a day [Active]; metoprolol tartrate 25 mg Oral tab 1 tab once daily [Active]; Requip 1 mg Oral tab 1 tab daily [Active]; Symbicort 160-4.5 mcg/actuation inhalation HFAA 2 puffs 2 times per day [Active]; - PMHx: 01:08 Cerebrovascular accident; Hypertension; kd3 - PSHx: 01:08 pain pump; kd3 - Immunization history:: Adult Immunizations up to date. - Social history:: Smoking status: unknown. ROS: 01:10 Unable to obtain ROS due to altered mental status. jr8 Exam: 01:10 Eyes: Pupils equal round and reactive to light, extra-ocular motions intact. Lids and jr8 lashes normal. Conjunctiva and sclera are non-icteric and not injected. Cornea within normal limits. Periorbital areas with no swelling, redness, or edema. ENT: Nares patent. No nasal discharge, no septal abnormalities noted. Tympanic membranes are normal and external auditory canals are clear. Oropharynx with no redness, swelling, or masses, exudates, or evidence of obstruction, uvula midline. Mucous membranes moist. Neck: Trachea midline, no thyromegaly or masses palpated, and no cervical lymphadenopathy. Supple, full range of motion 01:10 Abdomen/GI: Soft with normal bowel sounds. No distension Skin: Warm, dry with normal turgor. Normal color with no rashes, no lesions, and no evidence of cellulitis. MS/ Extremity: Pulses equal, no cyanosis. Neurovascular intact. Full, normal range of motion. 01:10 Cardiovascular: Rate: tachycardic, Rhythm: irregularly irregular, Pulses: Pulses are 2+ in right radial artery and left radial artery. Heart sounds: normal, normal S1and S2, Edema: is not appreciated. 01:10 Respiratory: the patient does not display signs of respiratory distress, Respirations: tachypnea, that is mild, Breath sounds: rhonchi, that are mild, are heard in the right upper lobe, right middle lobe, right posterior upper lobe and right posterior middle lobe. 01:10 Neuro: Orientation: to person, Mentation: able to follow commands, slow to respond, confused, Memory: unable to test, Cranial nerves: CN I not tested, CN II- XII are normal as tested, extraocular movements are intact, Motor: moves all fours, Sensation: no obvious gross deficits, seizure activity, is not displayed by the patient, Abnormal movements: there are no abnormal movements. Vital Signs: 01:05 BP 102 / 86; Pulse 104; Resp 20; Pulse Ox 94% on NC; kd3 01:14 Weight 63.5 kg; Height 6 ft. 2 in. (187.96 cm); kd3 02:30 BP 109 / 68; Pulse 100; Resp 20; Pulse Ox 94% on 4 lpm NC; kd3 01:14 Body Mass Index 17.97 (63.50 kg, 187.96 cm) kd3 MDM: 00:58 Patient medically screened. rn 23:49 Data reviewed: vital signs, nurses notes, lab test result(s), EKG, radiologic studies, plain films. Data interpreted: Pulse oximetry: on room air is 95 %. Interpretation: normal. Counseling: I had a detailed discussion with the patient and/or guardian regarding: the historical points, exam findings, and any diagnostic results supporting the discharge/admit diagnosis, lab results, radiology results. 07/25 01:07 Order name: Basic Metabolic Panel; Complete Time: :42 07/25 01:07 Order name: CBC with Diff; Complete Time: :28 07/25 01:07 Order name: Magnesium; Complete Time: :07/25 01:07 Order name: NT PRO-BNP; Complete Time: :07/25 01:07 Order name: PT-INR; Complete Time: 02:00 07/25 01:07 Order name: Troponin HS; Complete Time: :42 07/25 01:07 Order name: XRAY Chest (1 view) 07/25 01:07 Order name: EKG; Complete Time: 01:07 07/25 01:07 Order name: Cardiac monitoring; Complete Time: 01:11 07/25 01:43 Order name: Blood Culture Adult (2) ny07/25 01:43 Order name: Procalcitonin; Complete Time: 03:36 07/25 01:51 Order name: COVID-19/FLU A+B (Document "Date of Onset" if Symptomatic) tw5 07/25 02:56 Order name: ABG Arterial Blood Gas [facility] 07/25 01:07 Order name: EKG - Nurse/Tech; Complete Time: 01:14 07/25 01:07 Order name: IV Saline Lock; Complete Time: 01:11 07/25 01:07 Order name: Labs collected and sent; Complete Time: 01:15 07/25 01:07 Order name: O2 Per Protocol; Complete Time: 01:11 07/25 01:07 Order name: O2 Sat Monitoring; Complete Time: 01:11 Administered Medications: 02:57 Drug: Zosyn (piperacillin-tazobactam) 3.375 grams Route: IVPB; Infused Over: 60 mins; kd3 Site: right antecubital; 03:48 Follow up: Response: No adverse reaction; Rate change 100 ml; IV Status: Completed kd3 infusion Disposition: 06:00 Co-signature as Attending Physician, Mark Salter MD. rn Disposition Summary: 07/25/21 01:44 Hospitalization Ordered Hospitalization Status: Inpatient Admission jr8 Provider: Darien Urias jr8 Location: Telemetry/MedSurg (Inpatient) jr8 Condition: Fair jr8 Problem: new jr8 Symptoms: have improved jr8 Bed/Room Type: Standard [facility] Room Assignment: 203(07/25/21 03:15) Diagnosis - Hyponatremia jr8 - Acute respiratory failure with hypoxia jr8 - Pneumonia due to other specified bacteria jr8 - Altered mental status, unspecified jr8 Forms: - Medication Reconciliation Form jr8 - SBAR form jr8 Signatures: Dispatcher [employer] Estephania Floyd, RN RN Mark Salter MD MD rn Roszak, Josh, PA PA jr8 Joey Marquez, CORN HUSKER-C CORN HUSKER-Cla1 Gabrielle Rhodes RN RN kd3 Corrections: (The following items were deleted from the chart) 03:15 01:44 jr8 mw
[2021-07-25 01:51] LABS: Protime INR 1.33
--- NOTE | 2021-07-25 02:41 | P.HP ---
Certification for Inpatient Patient admitted to: Inpatient With expected LOS: >2 Midnights Patient will require the following post-hospital care: None Practitioner: I am a practitioner with admitting privileges, knowledge of patient current condition, hospital course, and medical plan of care. Services: Services provided to patient in accordance with Admission requirements found in Title 42 Section 412.3 of the Code of Federal Regulations Patient History Date of Service: 07/25/21 Primary Care Provider: skilled nursing doctor Reason for admission: hypoxemia, hyponatremia History of Present Illness: 76-year-old male with history of atrial fibrillation, on chronic anticoagulation therapy, hypertension, malnutrition, large nonhemorrhagic cerebral infarction, COPD, chronic back pain and recent transudative left pleural effusion requiring chest tube placement who was discharged from our facility yesterday and sent to [facility] presents back to the emergency department for hypoxia and confusion. Patient was sent to shelter on nasal cannula, while on nasal cannula at shelter 4 L patient was d esaturating into the 60s to 70s as reported by shelter staff, EMS noted sats in the 80s. ABG obtained in the emergency department on 4 L per nasal cannula demonstrated a PO2 of 54.2 and an O2 sat of 89.2. Patient also noted to have bilateral airspace disease/infiltrate suggestive of pneumonia his white blood cell count increased from 13 in the morning yesterday to 15.1 although upon chart review he was on steroids as well. Patient also very agitated and confused which had persisted throughout his previous admission. ED provider unable to discharge back to shelter given persistent hypoxia despite nasal cannula oxygen as prescribed LPM, shelter also reports they are unable to control his confusion/agitation. We will need to admit for further evaluation and management of suspected pneumonia/acute on chronic hypoxic respiratory failure.Pt does have PEG tube which was placed during hospitalization Allergies No Known Allergies Allergy (Verified 05/07/21 16:16) Home Medications: Acetaminophen [Tylenol] 650 mg PO Q6H PRN 05/07/21 Multivitamin [Multiple Vitamins] 1 each PO DAILY 05/07/21 Albuterol Neb [Proventil 0.083% Neb Soln] 2.5 mg NEB [id number] PRN amp 05/22/21 Apixaban [Eliquis *] 2.5 mg PO BID tablet 05/22/21 Famotidine [Pepcid*] 20 mg PO BID tab 05/22/21 Ferrous Sulfate [Ferrous Sulfate Elixir*] 5 ml PO TID #450 osyr 05/22/21 Ipratropium Neb [Atrovent*] 0.5 mg NEB [id number] PRN amp 05/22/21 Jevity 1.5 Mark Liquid 237 ml FT 0500,0900,1300,1700 bot 05/22/21 Jevity 1.5 Makr Liquid 237 ml RTH 2100 bot 05/22/21 Melatonin [Children's Sleep] 5 ml PO BEDTIME #30 liquid 05/22/21 Metoprolol Tartrate [Lopressor*] 25 mg PO BID 6AM 6PM tab 05/22/21 Multivitamin Oral Liq [Theravite Liq*] 5 ml FT DAILY osyr 05/22/21 Oxybutynin Chloride [Ditropan*] 5 mg PO BEDTIME tab 05/22/21 Pantoprazole [Protonix Tab*] 40 mg PO 0600 tab 05/22/21 Rosuvastatin [Crestor*] 5 mg PO BEDTIME tab 05/22/21 Terazosin HCl [Hytrin*] 1 mg PO BEDTIME cap 05/22/21 Thiamine HCl [Vitamin B-1*] 100 mg PO DAILY tablet 05/22/21 Albuterol Neb [Proventil 0.083% Neb Soln] 2.5 mg IH [id number] amp 07/24/21 Hydrocodone/APAP Soln [Lortab Solution *] 10 ml PO Q6H PRN ml 07/24/21 Metoprolol Tartrate [Lopressor*] 25 mg PO BID 6AM 6PM tab 07/24/21 Quetiapine [Seroquel*] 25 mg PO BID tab 07/24/21 - Past Medical/Surgical History Diabetic: No -: CVA -: A-fib -: hyperlipidema -: COPD -: Baclofen pain pump lower rt ABD -: chronic neck and lower back pain -: PEG 05/03/21 -: thrombectomy 04/18 -: hip surg Psychosocial/ [facility] - Family History Father History Unknown: Yes - Social History Smoking Status: Unknown if ever smoked Alcohol use: No CD- Drugs: No Caffeine use: Yes Place of Residence: Home Review of Systems is unable to be obtained Physical Examination - Physical Exam General: Alert, Oriented x1, Confused HEENT: Atraumatic Neck: Supple Respiratory: Diminished, Crackles/rales Cardiovascular: No edema, Irregular heart rate/rhythm (afib, rate controlled) Gastrointestinal: Normal bowel sounds, Other (PEG tube in place) Musculoskeletal: No contractures Integumentary: No cyanosis Neurological: Dementia - Studies Laboratory Data (last 24 hrs) 07/25/21 01:30: PT 14.7 H, INR 1.33 07/25/21 01:05: WBC 15.1 H, Hgb 10.7 L, Hct 34.2 L, Plt Count 230 07/25/21 01:05: Sodium 125 L, Potassium 4.8, BUN 30 H, Creatinine 0.68, Glucose 117 H, Magnesium 1.8 Assessment and Plan - Plan Assessment: Acute on chronic hypoxic respiratory failure secondary to suspected bilateral pneumonia versus COPD with exacerbation Metabolic encephalopathy related to above Atrial fibrillation on chronic anticoagulation therapy Hyponatremia Hyperlipidemia History of ischemic CVA Recent left pleural effusion S/P chest tube insertion/removal PEG tube in place Plan: Acute on chronic hypoxic respiratory failure secondary to suspected bilateral pneumonia versus COPD with exacerbation: ABG performed in ER demonstrates hypoxemia despite nasal cannula oxygen therapy at 4L, chest x-ray demonstrates bilateral infiltrates not significant different from previous x-ray yesterday morning although white blood cell count did increase slightly from 13-15. It appears that patient was on oral steroids at the time this is possibly due to steroid use. Procalcitonin pending blood cultures were obtained. Patient curre ntly on Zosyn. Sputum cultures ordered as well. We will consult pulmonology continue supplemental oxygen as needed to maintain saturations greater than 92%. Patient was also very agitated shelter, they are unable to give him settled and reported that anytime he moved all he became significantly hypoxic with saturations in the 60s to 70s reportedly. Will also give patient as needed nebulizer treatments. During previous hospitalization patient was treated for large left-sided pleural effusion with chest tube which is since been removed. Will likely need assistance from social work professor with placement depending on patient's response to treatment either back to detention or possibly LTAC Metabolic encephalopathy related to above: Continue as above Atrial fibrillation on chronic anticoagulation therapy: Continue metoprolol, Eliquis monitor on telemetry Hyponatremia: Gentle hydration with normal saline, continue tube feeds dietary consulted. Hyperlipidemia: Obtain and continue home medication History of ischemic CVA: History of large ischemic CVA, obtain and continue medication as appropriate. Patient with lots of confusion/agitation. Recent left pleural effusion S/P chest tube insertion/removal: No pneumothorax or significant pleural effusion noted on chest x-ray at this time suspected bilateral infiltrates. PEG tube in place: Placed during previous hospitalization, continue tube feeds, dietary consult in place. DVT PPX: Continue Eliquis Code status: Full Discharge Plan: Care Home Plan to discharge in: 48 Hours - Advance Directives Does patient have a Living Will: No Does patient have a Durable POA for Healthcare: No - Code Status/Comfort Care Code Status Assessed: Yes (Full code) Critical Care: No Time Spent Managing Pts Care (In Minutes): 55
[2021-07-25 02:53] LABS: SARS-COV-2 RT PCR NEGATIVE (NEGATIVE)
[2021-07-25] MEDS ORDERED: PIPERACIL/TAZO 3.375 GM VIAL IV ONE (02:56)
[2021-07-25] MEDS ORDERED: NA CHLORIDE 0.9% 0 ML ONE (02:57)
[2021-07-25] MEDS ORDERED: NA CHLORIDE 0.9% 100 ML IV ONE (02:59)
[2021-07-25 03:23] LABS: Arterial Blood Carboxyhemoglob 1.8 % (0-1.5); Blood Gas Oxyhemoglobin 86.5 % (94-97); Blood O2 Saturation 88.9 % (92-98.5)
[2021-07-25] MEDS ORDERED: ALBUTEROL 2.5 MG/3 ML NEB SOL NEB PRN (04:01)
[2021-07-25] MEDS ORDERED: ONDANSETRON 4 MG/2 ML VIAL IV PRN (04:01)
[2021-07-25] MEDS ORDERED: IPRATROPIUM BROM 0.5MG/2.5ML NEB PRN (04:01)
[2021-07-25] MEDS ORDERED: ZIPRASIDONE MESYLA 20 MG/VIAL IM PRN (04:01)
[2021-07-25] MEDS ORDERED: WATER FOR INJ,STERILE 10 ML IM PRN (04:01)
[2021-07-25 04:43] VITALS: BMI 17.9
[2021-07-25] MEDS: NA CHLORIDE 0.9% 1,000 ML IV SCH ×2 (04:57→17:21)
[2021-07-25] MEDS: METOPROLOL TAR 25 MG TAB PO SCH ×2 (05:09→18:54)
[2021-07-25 06:03] LABS: Arterial Blood Carboxyhemoglob 1.8 % (0-1.5); Blood Gas Oxyhemoglobin 92.5 % (94-97); Blood O2 Saturation 95.3 % (92-98.5)
[2021-07-25] MEDS ORDERED: APIXABAN 5 MG TABLET PO SCH (09:00)
[2021-07-25] MEDS: PIPER TAZO 3.375 GM in NA CHLORIDE 0.9% 100 ML IV SCH ×2 (10:08→18:53)
--- NOTE | 2021-07-25 11:31 | RAD REPORT ---
EXAM DESCRIPTION: RAD - ENTEROSTOMY TUBE CHECK W/CONTR - 07/25/2021 11:26 am CLINICAL HISTORY: verify new Peg tube placement COMPARISON: Renal Ultrasound-Complete dated 05/15/2021 FINDINGS/IMPRESSION: Injection of contrast demonstrates contrast within the lumen of the stomach. Th is would indicate an intragastric location of the feeding tube.
--- NOTE | 2021-07-25 12:34 | EKG ---
Test Date: 2021-07-25 Test Time: 00:59:44 Sharples Machine Operator: PEBBLES MEASUREMENT RESULTS: Intervals: Rate: 102 TX: QRSD: 132 QT: 380 QTc: 495 [place]: P: TX: QRS: -90 T: 72 INTERPRETIVE STATEMENTS: Atrial fibrillation with rapid ventricular response with premature ventricular or aberrantly conducted complexes Right bundle branch block T wave abnormality, consider lateral ischemia or digitalis effect Abnormal ECG Compared to ECG 07/16/2021 08:20:13 T-wave abnormality now present Possible ischemia now present Left-axis deviation no longer present Myocardial infarct finding no longer present Electronically Signed On 07-25-21 12:33:04 CDT by James Valdez
--- NOTE | 2021-07-25 17:32 | RAD REPORT ---
EXAM DESCRIPTION: RAD - Chest Single View - 07/25/2021 1:36 am CLINICAL HISTORY: 76 years, Male, DYSPNEA COMPARISON: None. FINDINGS: Single view of the chest was obtained portable. No prior films are available for compariso n. The heart is in the upper normal size. There is atherosclerotic disease of the aorta. Minimal bi lateral areas of opacities lung bases correspond to perhaps atelectasis and/or bibasilar pneumonia. N o significant pleural effusions The rest of the soft tissue and bony structures demonstrate to be unr emarkable. IMPRESSION: Minimal bilateral areas of lung opacities correspond to perhaps atelectasis and/or bibas ilar pneumonia. Electronically signed by: Mazin Patel MD 07/25/2021 1:48 AM CDT Due to temporary technical issues with the PACS/Fluency reporting system, reports are being signed by the in house radiologists without review as a courtesy to insure prompt reporting. The interpreting radiologist is fully responsible for the content of the report.
[2021-07-25] MEDS ORDERED: HYDROCOD 2.5mg-ACETAMIN 108mg/5mL Soln FT PRN (19:22)
[2021-07-25] MEDS ORDERED: MELATONIN FT SCH (21:00)
[2021-07-25] MEDS ORDERED: OXYBUTYNIN CHLORIDE 5 MG TAB FT ONE (23:00)
[2021-07-25] MEDS ORDERED: APIXABAN 2.5 MG TABLET FT ONE (23:00)
[2021-07-25] MEDS ORDERED: TERAZOSIN HCL 1 MG CAP FT ONE (23:00)
[2021-07-25] MEDS ORDERED: ROSUVASTATIN 10 MG TAB FT ONE (23:00)
[2021-07-25] MEDS ORDERED: QUETIAPINE 25 MG TAB FT ONE (23:00)
[2021-07-25] MEDS ORDERED: ROSUVASTATIN 10 MG TAB PO ONE (23:00)
[2021-07-25] MEDS ORDERED: JEVITY 1.5 CAL LIQUID 1,000 ML BOT FT ONE (23:00)
--- NOTE | 2021-07-25 23:42 | CON ---
Date of Consultation: 07/25/2021 Brief Hpi: The patient is a 76-year-old male, known to me from previous admission. I perf ormed a PEG tube placement on 07/17 for feeding access, which was working well until he ultimately di slodged this feeding tube. Prior to his admission on this particular occasion, the feeding tube had been functional. He was tolerating tube feeds ago without complication, but somehow he had pulled ou t the feeding tube and as such, was brought to the ER with the above-stated complaints. Past Medical History: Significant for CVA, atrial fibrillation, hyperlipidemia, COPD, confusion. Past Surgical History: PEG tube on 07/17/2021, thrombectomy, chronic baclofen pain pump in the right lower abdomen, and hip surgery. Home Medications: Include Jevity, melatonin, metoprolol, Theravite, Ditropan, Protonix, Crestor, Hyt rin, vitamin B1, Proventil, Lortab solution, Lopressor, Seroquel. Allergies: NO KNOWN DRUG ALLERGIES. Social History: He is home away prison in [place]. There is no history of smoking, alcohol, or recreational drug use. Review of Systems: 10 point review of systems unable to obtain due to patient's confusion. Physical Examination: Vital Signs: At the time of examination, his BMI is 18. His blood pressure is 124/49, pulse is 60, respiratory rate 18, temperature 97.6. General: He is awake and alert, but confused. Psychiatric: He is confused but conversive. HEENT: He is thin, frail, and overall cachectic in [facility] and appears malnourished. HEENT: Otherwise, normocephalic. Sclerae icteric. Mucous membranes are moist. His oropharynx is c lear. Neck: Supple without JVD. Chest: Expansion and excursion. Cardiovascular: Rate and rhythm. Pulmonary: Clear to auscultation bilaterally. Abdomen: Soft with feeding tube in place and it appeared to be a Rashid catheter placed. Extremities: No clubbing, cyanosis, edema. Skin: Warm and dry. Laboratory Data: Revealed a white blood cell count of 15.1, hemoglobin 10.7, hematocrit 34.2, platel et count was 230. His PT is 14.7, INR 1.23, sodium 125, potassium 4.8, chloride 89, carbon dioxide 3 0, BUN 30, creatinine is 0.6, glucose was 117. Troponin was 47.4. Procalcitonin 0.07, proBNP is 930 0. COVID negative. Influenza A and B negative. After a placement of his feeding tube, he had 2 g p erformed through his feeding tube to verify position on 07/25 which was officially read, as injection of contrast demonstrates contrast within the lumen of the stomach. This would indicate an intragast maco location of the feeding tube. Assessment And Plan: This is a 76-year-old male with multiple medical problems, who had his PEG tube dislodged and replaced, currently appears to be in the intragastric position. 1.Continue medical management per primary team. 2.Feeding tube appears to be in good position. Okay to resume tube feedings at this point with the current feeding tube access. Thank you for this interesting consult. LEEANNE/TAMARA Voice ID: [id number] Report ID: [id number]
[2021-07-25] MEDS ORDERED: SODIUM CHLORIDE 0.9% 10ML INJ IV PRN (23:56)
[2021-07-26] MEDS: PIPER TAZO 3.375 GM in NA CHLORIDE 0.9% 100 ML IV SCH ×2 (01:39→10:00)
[2021-07-26] MEDS ORDERED: JEVITY 1.5 CAL LIQUID 1,000 ML BOT FT SCH (05:00)
[2021-07-26] MEDS: METOPROLOL TAR 25 MG TAB PO SCH ×2 (05:17→18:00)
[2021-07-26] MEDS: JEVITY 1.5 CAL LIQUID 1,000 ML BOT FT SCH ×6 (05:18→21:00)
[2021-07-26] MEDS: NA CHLORIDE 0.9% 1,000 ML IV SCH (05:53)
[2021-07-26 05:55] LABS: Lymphocytes % 7.5 % (15.3-44.8); RBC Red Blood Cell Count 4.09 M/uL (4.33-5.43)
[2021-07-26] MEDS ORDERED: Pantoprazole (granules) 40 MG/BLIST PACKET PO SCH (06:00)
[2021-07-26 06:04] LABS: ALT/SGPT 25 U/L (12-78); AST/SGOT 23 U/L (15-37); Albumin 2.2 g/dL (3.4-5.0); Alkaline Phosphatase 74 U/L (45-117); BUN Blood Urea Nitrogen 28 mg/dL (7-18); Bicarbonate 27 mmol/L (21-32); Bilirubin Total 1.2 mg/dL (0.2-1.0); Glucose Level 69 mg/dL (74-106); Magnesium 1.8 mg/dL (1.8-2.4); Potassium 4.2 mmol/L (3.5-5.1); Protein, Total 6.7 g/dL (6.4-8.2); Sodium Level 131 mmol/L (136-145)
[2021-07-26] MEDS: THIAMINE HCL 100 MG TABLET FT SCH ×2 (09:00→10:00)
[2021-07-26] MEDS: QUETIAPINE 25 MG TAB FT SCH ×3 (09:00→21:00)
[2021-07-26] MEDS: APIXABAN 2.5 MG TABLET PO SCH ×3 (09:00→21:00)
[2021-07-26] MEDS: PANTOPRAZOLE 40 MG INJ IVP SCH (10:00)
--- NOTE | 2021-07-26 12:40 | P.PN ---
Subjective Date of Service: 07/26/21 Primary Care Provider: shelter doctor Chief Complaint: Hypoxemia Subjective: Improving (Patient is improving doing better or alert responsive cooperative he was just recently discharged came back again from the [facility] hypoxic at count is minimally elevated vital signs stable) Review of Systems General: Weakness Respiratory: Shortness of Breath Physical Examination - Vital Signs Temperature: 97.1 F Blood Pressure: 148/98 Pulse: 78 Respirations: 20 Pulse Ox (%): 97 - Physical Exam General: Alert, Cooperative Respiratory: Clear to auscultation bilaterally, Diminished Cardiovascular: No edema, Regular rate/rhythm - Studies Microbiology Data (last 24 hrs): 07/25/21 02:14 Blood - Blood Anaerobic Blood Culture - Final 07/25/21 02:06 Blood - Blood Anaerobic Blood Culture - Final Assessment And Plan - Current Problems (Diagnosis) (1) COPD (chronic obstructive pulmonary disease) Current Visit: No Status: Acute Plan: I suspect he has significant COPD doubt infection although his white count is mildly elevated can change lead to Augmentin and doxycycline via the PEG tube he is at risk for hospital-acquired infection patient is anticoagulated changed to PEG tube flushes is currently stable on 2 L of nasal cannula oxygen patient is anticoagulated change to scheduled bronchodilator therapy evaluate for discharge tomorrow on bronchodilators add scheduled long-acting bronchodilators Brovana 1 neb twice daily Qualifiers: Emphysema type: unspecified
[2021-07-26] MEDS: IPRATROPIUM BROM 0.5MG/2.5ML NEB SCH ×2 (14:00→20:10)
[2021-07-26] MEDS: D5 0.9 NS 1,000 ML IV SCH (20:00)
[2021-07-26] MEDS ORDERED: ROSUVASTATIN 10 MG TAB FT SCH (21:00)
[2021-07-26] MEDS: OXYBUTYNIN CHLORIDE 5 MG TAB FT SCH (21:00)
[2021-07-26] MEDS: AMOX/K CLAV 500 MG TAB PO SCH (21:00)
[2021-07-26] MEDS: TERAZOSIN HCL 1 MG CAP FT SCH (21:00)
[2021-07-26] MEDS: ROSUVASTATIN 10 MG TAB PO SCH (21:00)
[2021-07-26] MEDS: MELATONIN 5 MG TABLET PO SCH (21:00)
[2021-07-26] MEDS: DOXYCYCLINE 100 MG CAP PO SCH (21:00)
[2021-07-27] MEDS: IPRATROPIUM BROM 0.5MG/2.5ML NEB SCH ×4 (01:25→19:45)
[2021-07-27] MEDS: JEVITY 1.5 CAL LIQUID 1,000 ML BOT FT SCH ×5 (04:14→17:00)
[2021-07-27] MEDS: METOPROLOL TAR 25 MG TAB PO SCH ×2 (05:36→18:00)
[2021-07-27 05:47] LABS: Absolute Lymphocytes (CBC) 1.3 K/uL (0.7-4.9); Hematocrit 30.2 % (39.6-49.0); Lymphocytes % 13.7 % (15.3-44.8); MPV 7.7 fL (7.6-11.3); RBC Red Blood Cell Count 3.65 M/uL (4.33-5.43)
[2021-07-27 05:58] LABS: ALT/SGPT 20 U/L (12-78); AST/SGOT 19 U/L (15-37); Albumin 2.2 g/dL (3.4-5.0); Alkaline Phosphatase 65 U/L (45-117); BUN Blood Urea Nitrogen 23 mg/dL (7-18); Bicarbonate 30 mmol/L (21-32); Bilirubin Total 0.8 mg/dL (0.2-1.0); Glucose Level 111 mg/dL (74-106); Magnesium 1.8 mg/dL (1.8-2.4); Potassium 3.3 mmol/L (3.5-5.1); Protein, Total 6.2 g/dL (6.4-8.2); Sodium Level 137 mmol/L (136-145)
[2021-07-27] MEDS: KCL 20 MEQ/100 mL IVPB 20 MEQ/100 ML BAG IV SCH ×2 (07:30→09:30)
[2021-07-27] MEDS: THIAMINE HCL 100 MG TABLET FT SCH (09:00)
[2021-07-27] MEDS: DOXYCYCLINE 100 MG CAP PO SCH ×2 (09:00→20:06)
[2021-07-27] MEDS: APIXABAN 2.5 MG TABLET PO SCH ×2 (09:00→20:06)
[2021-07-27] MEDS: AMOX/K CLAV 500 MG TAB PO SCH ×2 (09:00→20:06)
[2021-07-27] MEDS: QUETIAPINE 25 MG TAB FT SCH ×2 (09:00→20:06)
[2021-07-27] MEDS: PANTOPRAZOLE 40 MG INJ IVP SCH (09:40)
[2021-07-27] MEDS: D5 0.9 NS 1,000 ML IV SCH ×2 (09:49→23:40)
--- NOTE | 2021-07-27 16:14 | RAD REPORT ---
EXAM DESCRIPTION: RAD - ENTEROSTOMY TUBE CHECK W/CONTR - 07/27/2021 4:04 pm CLINICAL HISTORY: peg placement COMPARISON: abdomen 07/25/2021 FINDINGS: Supine portable KUB image obtained prior to and subsequent to retrograde injection of Rhina roview contrast material. Initial image shows PEG tube with balloon in the left upper quadrant. No bowel obstruction, free air or pneumatosis seen. Multiple nondilated small bowel loops are present. Following retrograde injection contrast, the PEG tube localizes to the proximal portion of the stomac h. All injected contrast remains within the lumen of the stomach and the duodenal bulb. IMPRESSION: PEG tube is positioned in the proximal stomach. All injected contrast remained within th e lumen.
[2021-07-27] MEDS ORDERED: DEXTROSE 10%-WATER 500 ML IV SCH ×2 (18:30→19:00)
[2021-07-27] MEDS ORDERED: AA 4.25 %/D5W/ELECTROLYTES 2,000 ML IV SCH ×2 (19:00→20:00)
[2021-07-27] MEDS ORDERED: KCL 20 MEQ/100 mL IVPB 20 MEQ/100 ML BAG IV SCH (20:00)
[2021-07-27] MEDS: MELATONIN 5 MG TABLET PO SCH (20:06)
[2021-07-27] MEDS: TERAZOSIN HCL 1 MG CAP FT SCH (20:06)
[2021-07-27] MEDS: OXYBUTYNIN CHLORIDE 5 MG TAB FT SCH (20:06)
[2021-07-27] MEDS: ROSUVASTATIN 10 MG TAB PO SCH (20:06)
--- NOTE | 2021-07-27 22:00 | P.PN ---
Subjective Date of Service: 07/27/21 Primary Care Provider: retirement doctor Chief Complaint: Hypoxemia Subjective: No new changes, Improving Physical Examination - Vital Signs Temperature: 97.3 F Blood Pressure: 137/65 Pulse: 83 Respirations: 17 Pulse Ox (%): 93 - Physical Exam General: Alert, Cachectic HEENT: Atraumatic, Normocephalic Neck: Supple Respiratory: Clear to auscultation bilaterally Cardiovascular: No edema, Regular rate/rhythm Gastrointestinal: Soft and benign Assessment And Plan - Plan Malnutrition Hyponatremia Deconditioning Cachexia Dislodged PEG tube. Plan: His sodium is better at 131 today. He also has been more conversant and active. we will continue NS infusion and monitor sodium level closely. we will continue present care with enteral feeds as tolerated. His PEG tube was dislodged, surgeon evaluating. we will continue plans for rehab placement.
--- NOTE | 2021-07-27 22:02 | P.PN ---
Subjective Date of Service: 07/26/21 Primary Care Provider: [facility] doctor Chief Complaint: Hypoxemia Subjective: No new changes, Ambulating Physical Examination - Vital Signs Temperature: 97.3 F Blood Pressure: 137/65 Pulse: 83 Respirations: 17 Pulse Ox (%): 93 - Physical Exam General: Alert, Oriented x3, Cachectic HEENT: Atraumatic, Normocephalic Neck: Supple Respiratory: Clear to auscultation bilaterally Cardiovascular: Regular rate/rhythm, Normal S1 S2 Gastrointestinal: Soft and benign Neurological: Normal speech, Sensation intact Assessment And Plan - Plan Malnutrition Hyponatremia Deconditioning Cachexia Dislodged PEG tube. Plan: His sodium is better at 131 today. He also has been more conversant and active. we will continue NS infusion and monitor sodium level closely. we will continue present care with enteral feeds as tolerated. His PEG tube was dislodged, surgeon evaluating. we will continue plans for rehab placement.
[2021-07-28] MEDS: IPRATROPIUM BROM 0.5MG/2.5ML NEB SCH ×4 (01:50→19:55)
[2021-07-28 05:19] LABS: Hematocrit 31.4 % (39.6-49.0); Lymphocytes % 9.5 % (15.3-44.8); MPV 7.7 fL (7.6-11.3); RBC Red Blood Cell Count 3.74 M/uL (4.33-5.43)
[2021-07-28 05:52] LABS: ALT/SGPT 20 U/L (12-78); AST/SGOT 17 U/L (15-37); Alkaline Phosphatase 68 U/L (45-117); BUN Blood Urea Nitrogen 16 mg/dL (7-18); Bicarbonate 30 mmol/L (21-32); Bilirubin Total 0.7 mg/dL (0.2-1.0); Glucose Level 133 mg/dL (74-106); Magnesium 1.7 mg/dL (1.8-2.4); Potassium 3.6 mmol/L (3.5-5.1); Protein, Total 6.1 g/dL (6.4-8.2); Sodium Level 138 mmol/L (136-145)
[2021-07-28] MEDS: METOPROLOL TAR 25 MG TAB PO SCH ×2 (06:00→17:45)
[2021-07-28] MEDS ORDERED: KCL 20 MEQ/100 mL IVPB 20 MEQ/100 ML BAG IV ONE (07:30)
[2021-07-28] MEDS ORDERED: LIDOCAINE 1% MPF 5 ML VIAL ONE (08:10)
[2021-07-28] MEDS: AMOX/K CLAV 500 MG TAB PO SCH ×2 (09:00→21:57)
[2021-07-28] MEDS: DOXYCYCLINE 100 MG CAP PO SCH ×2 (09:00→21:57)
[2021-07-28] MEDS: QUETIAPINE 25 MG TAB FT SCH ×2 (09:00→21:58)
[2021-07-28] MEDS: THIAMINE HCL 100 MG TABLET FT SCH (09:00)
[2021-07-28] MEDS: APIXABAN 2.5 MG TABLET PO SCH ×2 (09:00→21:58)
--- NOTE | 2021-07-28 09:53 | RAD REPORT ---
EXAM DESCRIPTION: RAD - ENTEROSTOMY TUBE CHECK W/CONTR - 07/28/2021 9:38 am CLINICAL HISTORY: Gastrostomy tube placement FINDINGS: Contrast was administered into the percutaneous gastrostomy tube. The gastric body and ant rum is opacified.. No extravasation contrast Zero fluoroscopy performed. Zero fluoroscopic spot images obtained
[2021-07-28] MEDS: PANTOPRAZOLE 40 MG INJ IVP SCH (10:00)
[2021-07-28 11:48] LABS: Urine Appearance Clear (Clear); Urine Bilirubin Negative (Negative); Urine Blood Trace-intact (Negative); Urine Color Yellow (Yellow); Urine Glucose Negative (Negative); Urine Protein Trace (Negative); Urine Specific Gravity 1.025 (1.005-1.030); Urine Urobilinogen 0.2 mg/dL (0.2-1.0); Urine pH 6.5 (5.0-7.0)
[2021-07-28 11:55] LABS: Urine Microscopic Reflex ORDER UMIC
[2021-07-28 12:21] LABS: Urine Bacteria <20 /HPF (NONE SEEN); Urine RBC <5 /HPF (NONE SEEN)
--- NOTE | 2021-07-28 12:48 | P.DS ---
Admission Date: 07/25/21 Discharge Date: 07/28/21 Primary Care Provider: long-term doctor Disposition: TRANSFER TO LONG TERM Discharge Condition: FAIR Reason for Admission: Hypoxemia - Problems (1) COPD (chronic obstructive pulmonary disease) Current Visit: No Status: Acute Qualifiers: Emphysema type: unspecified Brief History of Present Illness: Patient is 76 years of age was discharged admitted again with hypoxemia possible pneumonia Hospital Course: No complication during the stay he was started on Augmentin and doxycycline Dr. Ayala was consulted for repositioning of the PEG tube was secured in place prior to discharge and confirmed on scan/patient was doing well at the time of discharge vital signs stable oxygenation satisfactory chemistries and labs reviewed white count was normal is to follow-up with me in 2 weeks Vital Signs/Physical Exam: Temp Pulse Resp BP Pulse Ox 98.8 F 149 H 28 H 173/99 H 76 L 07/28/21 08:00 07/28/21 08:00 07/28/21 08:00 07/28/21 08:00 07/28/21 08:00 Laboratory Data at Discharge: WBC 10.3 K/uL (4.3-10.9) 07/28/21 04:23 Hgb 9.9 g/dL (13.6-17.9) L 07/28/21 04:23 Hct 31.4 % (39.6-49.0) L 07/28/21 04:23 Plt Count 219 K/uL (152-406) 07/28/21 04:23 PT 14.7 SECONDS (9.5-12.5) H 07/25/21 01:30 INR 1.33 07/25/21 01:30 Sodium 138 mmol/L (136-145) 07/28/21 04:23 Potassium 3.6 mmol/L (3.5-5.1) 07/28/21 04:23 BUN 16 mg/dL (7-18) 07/28/21 04:23 Creatinine 0.61 mg/dL (0.55-1.3) 07/28/21 04:23 Glucose 133 mg/dL (74-106) H 07/28/21 04:23 Magnesium 1.7 mg/dL (1.8-2.4) L 07/28/21 04:23 Total Bilirubin 0.7 mg/dL (0.2-1.0) 07/28/21 04:23 AST 17 U/L (15-37) 07/28/21 04:23 ALT 20 U/L (12-78) 07/28/21 04:23 Alkaline Phosphatase 68 U/L (45-117) 07/28/21 04:23 Home Medications: Acetaminophen [Tylenol] 650 mg FT Q6H PRN 05/07/21 Multivitamin [Multiple Vitamins] 1 each FT DAILY 05/07/21 Albuterol Neb [Proventil 0.083% Neb Soln] 2.5 mg NEB [id number] PRN amp 05/22/21 Apixaban [Eliquis *] 2.5 mg PO BID tablet 05/22/21 Ipratropium Neb [Atrovent*] 0.5 mg NEB [id number] PRN amp 05/22/21 Jevity 1.5 Mark Liquid 237 ml FT 0500,0900,1300,1700 bot 05/22/21 Jevity 1.5 Mark Liquid 237 ml RTH 2100 bot 05/22/21 Melatonin [Children's Sleep] 5 ml PO BEDTIME #30 liquid 05/22/21 Multivitamin Oral Liq [Theravite Liq*] 5 ml FT DAILY osyr 05/22/21 Oxybutynin Chloride [Ditropan*] 5 mg PO BEDTIME tab 05/22/21 Pantoprazole [Protonix Tab*] 40 mg PO 0600 tab 05/22/21 Rosuvastatin [Crestor*] 5 mg PO BEDTIME tab 05/22/21 Terazosin HCl [Hytrin*] 1 mg PO BEDTIME cap 05/22/21 Thiamine HCl [Vitamin B-1*] 100 mg PO DAILY tablet 05/22/21 Hydrocodone/APAP Soln [Lortab Solution *] 10 ml PO Q6H PRN ml 07/24/21 Quetiapine [Seroquel*] 25 mg PO BID tab 07/24/21 Famotidine [Pepcid*] 20 mg FT BID 07/25/21 Ferrous Sulfate [Ferrous Sulfate Elixir*] 5 ml FT TID 07/25/21 Metoprolol Tartrate [Lopressor*] 25 mg FT BID 6AM 6PM 07/25/21 Metoprolol Tartrate [Lopressor*] 25 mg FT BID 6AM 6PM 07/25/21 Amox/Clavulanate [Augmentin 500-125 mg Tab*] 500 mg PO BID #20 tab 07/28/21 Doxycycline Hyclate 100 mg PO BID #14 tablet. 07/28/21 Fluticasone/Umeclidin/Vilanter [Trelegy Ellipta 100-62.5-25] 1 each IH DAILY #30 blst.w.dev 07/28/21 New Medications: Amox/Clavulanate [Augmentin 500-125 mg Tab*] 500 mg PO BID #20 tab Doxycycline Hyclate 100 mg PO BID #14 tablet. Fluticasone/Umeclidin/Vilanter [Trelegy Ellipta 100-62.5-25] 1 each IH DAILY #30 blst.w.dev Physician Discharge Instructions: Fu with Salvador Guzmán MD in 2-4 wks/she is faxed to the pharmacy oxygen 2 to 4 L titrate sat to 90 to 95% Followup: HÉCTOR ANAYA [Primary Care Provider] -
[2021-07-28] MEDS ORDERED: AA 4.25 %/D5W/ELECTROLYTES 2,000 ML, Lipids 20% 250 ML with MULTIVITAMINS INJ 10 ML IV SCH ×3 (17:00)
[2021-07-28] MEDS ORDERED: AA 5%/D20W/ELECTROLYTES-TPN 2,000 ML, Lipids 20% 250 ML with MULTIVITAMINS INJ 10 ML IV SCH ×3 (17:00)
[2021-07-28] MEDS: D5 0.9 NS 1,000 ML IV SCH (17:48)
[2021-07-28] MEDS: ROSUVASTATIN 10 MG TAB PO SCH (21:00)
[2021-07-28] MEDS: TERAZOSIN HCL 1 MG CAP FT SCH (21:57)
[2021-07-28] MEDS: MELATONIN 5 MG TABLET PO SCH (21:58)
[2021-07-28] MEDS: OXYBUTYNIN CHLORIDE 5 MG TAB FT SCH (22:01)
[2021-07-29] MEDS: IPRATROPIUM BROM 0.5MG/2.5ML NEB SCH (01:25)
[2021-07-29 02:21] VITALS: O2SAT 98
[2021-07-29 04:27] VITALS: BP 129/62; TEMP 98.2
== END 2021-07-29 03:35 | DRG 190 ==
LOC: ER 00:56 → 2ND 03:24
PROVIDERS: ADMIT Internal Medicine Nephrology; ATTEND Internal Medicine Sleep Medicine
PROC: 0DH63UZ Insertion of Feeding Device into Stomach, Percutaneous Approach (ICD-10-PCS; principal; 2021-07-28)
DX: J43.9 Emphysema, unspecified (principal); J96.21 Acute and chronic respiratory failure with hypoxia; G93.41 Metabolic encephalopathy; E44.0 Moderate protein-calorie malnutrition; Z68.1 Body mass index [BMI] 19.9 or less, adult; E87.1 Hypo-osmolality and hyponatremia; R64 Cachexia; I48.91 Unspecified atrial fibrillation; E78.5 Hyperlipidemia, unspecified; I10 Essential (primary) hypertension; Z79.51 Long term (current) use of inhaled steroids; Z79.82 Long term (current) use of aspirin; Z79.899 Other long term (current) drug therapy; Z86.73 Personal history of transient ischemic attack (TIA), and cerebral infarction without residual deficits; Z79.01 Long term (current) use of anticoagulants; Z93.1 Gastrostomy status; Z20.822 Contact with and (suspected) exposure to COVID-19
CPT/HCPCS: 0240U; 36415; 49465; 71045; 80048; 80053; 81003; 81015; 82805; 82947; 83735; 83880; 84132; 84145; 84484; 85025; 85610; 87040; 92610; 93005; 96365; 99285; C9113; J2543; J3480; J7030; J7042; J7050; U0003

== ENCOUNTER 2021-07-31 12:28 | Emergency (ER) | payer OTHER ==
--- OUTSIDE RECORDS SUMMARY | 2021-07-31 12:31 | XMS REPORT | Continuity of Care Document ---
:1945 Author Organization [facility] t Address [address] [place] [address] [address] [place] [address] Care Team Providers Name Role Phone INES Attending Clinician Unavailable Payers Payer Name Policy Type Policy Number Effective Date Expiration Date S laurie [employer] OPEN CHOICE [id number] 2000 2024 PPO 00:00:00 00:00:00 MEDICARE PART A [id number] 2009 2024 AND B 00:00:00 00:00:00 Problems This patient has no known problems. Allergies, Adverse Reactions, Alerts This patient has no known allergies or adverse reactions. Medications This patient has no known medications. Procedures This patient has no known procedures. Encounters Start End Encounter Admission Attending Care Care Encounter Source Date/Time Date/Time Type Type Clinicians Facility Department ID 2021-05-26 Outpatient [facility] [id number] [place] 15:24:16 [facility] 2021-05-26 Outpatient [facility] [id number] [place] 15:24:15 [facility] 2021-05-[address] [facility] [id number] [facility] 12:00:28 [id number] 2020-02-25 2020-02-[address] [facility] [id number] [facility] 00[facility] Results This patient has no known results.
[2021-07-31] MEDS ORDERED: LIDOCAINE VISCOUS 2% SOLN 15 ML UDC ONE (14:06)
--- NOTE | 2021-07-31 16:22 | RAD REPORT ---
EXAM DESCRIPTION: RAD - ENTEROSTOMY TUBE CHECK W/CONTR - 07/31/2021 3:56 pm CLINICAL HISTORY: Gastrostomy tube placement FINDINGS: Contrast was administered into the percutaneous gastrostomy tube. The gastric body is opac ified. Contrast enters the duodenum. No extravasation contrast Zero fluoroscopy performed. Zero fluoroscopic spot images obtained
--- NOTE | 2021-07-31 16:40 | EDPHYS ---
Physician Documentation [facility] Name: Mitch Jim Jr Age: 76 yrs Sex: Male : 1945 Arrival Date: 07/31/2021 Time: 12:34 Bed 14 Private MD: ED Physician Mark Salter HPI: 07/31 13:00 This 76 yrs old Male presents to ER via EMS with complaints of Pulled Out Peg Tube. cp 13:00 replacement of gastrostomy tube after being pulled out by patient today. cp 13:00 Severity of symptoms: in the emergency department the symptoms are unchanged. cp Historical: - Allergies: 12:40 No Known Allergies; parker - Home Meds: 12:42 aspirin 81 mg Oral chew 1 tab once daily [Active]; cyclobenzaprine 10 mg Oral tab 1 tab parker daily [Active]; gabapentin 600 mg Oral tab 1 tab 3 times per day [Active]; hydrocodone-acetaminophen 5-325 mg Oral tab 1 tab three times a day [Active]; metoprolol tartrate 25 mg Oral tab 1 tab once daily [Active]; Requip 1 mg Oral tab 1 tab daily [Active]; Symbicort 160-4.5 mcg/actuation inhalation HFAA 2 puffs 2 times per day [Active]; - PMHx: 12:42 Cerebrovascular accident; Hypertension; parker - PSHx: 12:42 pain pump; parker - Immunization history:: Adult Immunizations up to date. - Social history:: Smoking status: unknown. ROS: 13:05 Constitutional: Negative for fever. cp 13:05 Cardiovascular: Negative for chest pain. 13:05 Respiratory: Negative for cough, shortness of breath. 13:05 Abdomen/GI: Negative for abdominal pain, vomiting, diarrhea, constipation. 13:05 Neuro: Negative for altered mental status. 13:05 All other systems are negative. Exam: 13:15 Constitutional: The patient appears in no acute distress, alert, awake, non-toxic, well cp developed, frail. 13:15 Head/Face: Normocephalic, atraumatic. cp 13:15 Eyes: Periorbital structures: appear normal, Conjunctiva: normal, no exudate, no injection, Lids and lashes: appear normal, bilaterally. 13:15 ENT: External ear(s): are unremarkable, Nose: is normal, Mouth: Lips: dry, Oral mucosa: dry, Posterior pharynx: Airway: no evidence of obstruction, patent. 13:15 Chest/axilla: Inspection: normal. 13:15 Cardiovascular: Rate: normal. 13:15 Respiratory: the patient does not display signs of respiratory distress, Respirations: normal, no use of accessory muscles, no retractions, labored breathing, is not present, Breath sounds: are clear throughout, no decreased breath sounds, no stridor, no wheezing. 13:15 Abdomen/GI: Inspection: distension, is not seen, Bowel sounds: active, all quadrants, Palpation: abdomen is soft and non-tender, in all quadrants. Vital Signs: 12:39 BP 133 / 67; Pulse 50; Resp 15; Temp 97.8; Pulse Ox 92% on 3 lpm NC; Weight 52.16 kg; parker Height 5 ft. 10 in. (177.80 cm); 14:30 BP 147 / 86; Pulse 72; Resp 17; Pulse Ox 98% on 2 lpm NC; ww 15:35 BP 143 / 92; Pulse 79; Resp 21; Pulse Ox 98% on 2 lpm NC; ww 16:36 BP 139 / 94; Pulse 79; Resp 18; Pulse Ox 100% on 2 lpm NC; ww 12:39 Body Mass Index 16.50 (52.16 kg, 177.80 cm) parker MDM: 12:36 Patient medically screened. cp 16:38 Data reviewed: vital signs, nurses notes, radiologic studies, plain films. cp 16:38 Test interpretation: by ED physician or midlevel provider: plain radiologic studies. cp Counseling: I had a detailed discussion with the patient and/or guardian regarding: the historical points, exam findings, and any diagnostic results supporting the discharge/admit diagnosis, radiology results, to return to the emergency department if symptoms worsen or persist or if there are any questions or concerns that arise at home. Response to treatment: the patient's symptoms have resolved after treatment, and as a result, I will discharge patient. 07/31 14:15 Order name: PEG Tube Check w/contrast; Complete Time: 16:37 cp 07/31 16:37 Interpretation: Report reviewed. cp Administered Medications: 14:30 Drug: Viscous Lidocaine Liquid (4 %) 5 ml {Note: administered by mahesh page.} Route: ww Mucous Membrane; Disposition Summary: 07/31/21 16:39 Discharge Ordered Location: Home cp Problem: new cp Symptoms: have improved cp Condition: Stable cp Diagnosis - Other complications of gastrostomy - replacement of gastrostomy tube cp Followup: cp - With: Private Physician - When: 1 - 2 days - Reason: Recheck today's complaints Discharge Instructions: - Discharge Summary Sheet cp - PEG Tube Home Guide cp Forms: - Medication Reconciliation Form cp - Thank You Letter cp - Antibiotic Education cp - Prescription Opioid Use cp Signatures: Dispatcher [employer] EDMS Mahesh Mora PA PA cp Wood, Whitney, RN RN Marina Malik RN RN Corrections: (The following items were deleted from the chart) 12: 12:40 Home Meds: aspirin 81 mg Oral chew 1 tab once daily; parker parker 12: 12:40 Home Meds: cyclobenzaprine 10 mg Oral tab 1 tab daily; parker parker 12:42 12:40 Home Meds: gabapentin 600 mg Oral tab 1 tab 3 times per day; parker parker 12: 12:40 Home Meds: hydrocodone-acetaminophen 5-325 mg Oral tab 1 tab three times a day; haha 12: 12:40 Home Meds: metoprolol tartrate 25 mg Oral tab 1 tab once daily; parker parker 12:42 12:40 Home Meds: Requip 1 mg Oral tab 1 tab daily; parker parker 12:42 12:40 Home Meds: Symbicort 160-4.5 mcg/actuation inhalation HFAA 2 puffs 2 times per parker day; parker 12:42 12:40 Home Meds: None; parker parker
--- NOTE | 2021-07-31 16:40 | ER ---
Nurse's Notes [facility] Name: Mitch Jim Jr Age: 76 yrs Sex: Male : 1945 Arrival Date: 07/31/2021 Time: 12:34 Bed 14 Private MD: Diagnosis: Other complications of gastrostomy-replacement of gastrostomy tube Presentation: 07/31 12:39 Chief complaint: EMS states: pulled out peg tube. Coronavirus screen: Vaccine status: parker Patient reports receiving the 2nd dose of the covid vaccine. Ebola Screen: Patient denies travel to an Ebola-affected area in the 21 days before illness onset. Initial Sepsis Screen: Does the patient meet any 2 criteria? No. Patient's initial sepsis screen is negative. Does the patient have a suspected source of infection? No. Patient's initial sepsis screen is negative. Risk Assessment: Do you want to hurt yourself or someone else?. Onset of symptoms was July 31, 2021. 12:39 Method Of Arrival: EMS: [facility] 12:39 Acuity: MARYLIN 4 parker Triage Assessment: 12:42 General: Appears in no apparent distress. Behavior is calm, cooperative. Pain: Denies parker pain. Historical: - Allergies: 12:40 No Known Allergies; parker - Home Meds: 12:42 aspirin 81 mg Oral chew 1 tab once daily [Active]; cyclobenzaprine 10 mg Oral tab 1 tab parker daily [Active]; gabapentin 600 mg Oral tab 1 tab 3 times per day [Active]; hydrocodone-acetaminophen 5-325 mg Oral tab 1 tab three times a day [Active]; metoprolol tartrate 25 mg Oral tab 1 tab once daily [Active]; Requip 1 mg Oral tab 1 tab daily [Active]; Symbicort 160-4.5 mcg/actuation inhalation HFAA 2 puffs 2 times per day [Active]; - PMHx: 12:42 Cerebrovascular accident; Hypertension; parker - PSHx: 12:42 pain pump; parker - Immunization history:: Adult Immunizations up to date. - Social history:: Smoking status: unknown. Screenin:43 Abuse screen: Denies threats or abuse. Denies injuries from another. Nutritional parker screening: No deficits noted. Tuberculosis screening: No symptoms or risk factors identified. Fall Risk Mental Status-. Assessment: 12:43 General: Appears in no apparent distress. Behavior is calm, cooperative. GI: pt pulled parker out his peg tube. 13:05 General: Appears in no apparent distress. slender, unkempt, emaciated, Behavior is ww cooperative. Pain: Denies pain. Neuro: Level of Consciousness is awake, alert, Oriented to place. Cardiovascular: Patient's skin is warm and dry. Respiratory: Airway is patent Respiratory effort is even, unlabored, Respiratory pattern is regular, symmetrical. GI: Abdomen is non-distended, PEG tube removed with gauze covering opening. Derm: Skin is fragile, is thin. 14:30 Reassessment: Patient appears in no apparent distress at this time. Patient and/or ww family updated on plan of care and expected duration. Pain level reassessed. Patient is alert, oriented x 3, equal unlabored respirations, skin warm/dry/pink. GI: PEG tube in place, Site clean. Site reddened. Mahesh Page placed 18 peg tube. Gauze placed and tape around peg tube 15:24 Reassessment: Patient appears in no apparent distress at this time. No changes from previously documented assessment. Patient and/or family updated on plan of care and expected duration. Pain level reassessed. Patient is alert, oriented x 3, equal unlabored respirations, skin warm/dry/pink. 16:33 Reassessment: Patient appears in no apparent distress at this time. No changes from previously documented assessment. Patient and/or family updated on plan of care and expected duration. Pain level reassessed. Patient is alert, oriented x 3, equal unlabored respirations, skin warm/dry/pink. Repositioned in bed. 17:11 Reassessment: Patient appears in no apparent distress at this time. Contacted [facility] and they do not have a transportation van to pick patient up. EMS notified for transfer back to facility. Vital Signs: 12:39 BP 133 / 67; Pulse 50; Resp 15; Temp 97.8; Pulse Ox 92% on 3 lpm NC; Weight 52.16 kg; parker Height 5 ft. 10 in. (177.80 cm); 14:30 BP 147 / 86; Pulse 72; Resp 17; Pulse Ox 98% on 2 lpm NC; ww 15:35 BP 143 / 92; Pulse 79; Resp 21; Pulse Ox 98% on 2 lpm NC; ww 16:36 BP 139 / 94; Pulse 79; Resp 18; Pulse Ox 100% on 2 lpm NC; ww 12:39 Body Mass Index 16.50 (52.16 kg, 177.80 cm) ED Course: 12:34 Patient arrived in ED. iw 12:34 Mahesh Mora PA is PHCP. cp 12:35 Mark Salter MD is Attending Physician. cp 12:36 Tracey Hidalgo, RN is Primary Nurse. ww 12:40 Triage completed. parker 12:42 Arm band placed on. parker 12:43 Patient has correct armband on for positive identification. Bed in low position. Side parker rails up X2. 12:43 No provider procedures requiring assistance completed. parker 13:00 satellite project site monitor on. Pulse ox on. NIBP on. ww 13:34 assisted with gtube insertion by calming patient down while Mahesh Mora inserted gtube. ww 15:56 X-ray completed. Portable x-ray completed in exam room. Patient tolerated procedure mh1 well. 15:58 PEG Tube Check w/contrast In Process Unspecified. EDNV 17:42 Patient did not have IV access during this emergency room visit. ww Administered Medications: 14:30 Drug: Viscous Lidocaine Liquid (4 %) 5 ml {Note: administered by mahesh mora.} Route: ww Mucous Membrane; Outcome: 16:39 Discharge ordered by . cp 17:[facility] [address] [facility] [address] ww 17:42 Condition: stable 17:42 Discharge instructions given to EMS. 17:42 Patient left the ED. ww Signatures: Dispatcher [employer] EDMS Estephania [facility] Adalgisa Morejon RN RN Mahesh Mora PA PA cp Wood, Whitney, RN RN Paulina-StageMarina bardales RN RN Corrections: (The following items were deleted from the chart) 12:42 12:40 Home Meds: aspirin 81 mg Oral chew 1 tab once daily; [facility] 12:42 12:40 Home Meds: cyclobenzaprine 10 mg Oral tab 1 tab daily; [facility] 12:42 12:40 Home Meds: gabapentin 600 mg Oral tab 1 tab 3 times per day; [facility] 12:42 12:40 Home Meds: hydrocodone-acetaminophen 5-325 mg Oral tab 1 tab three times a day; [facility] 12:42 12:40 Home Meds: metoprolol tartrate 25 mg Oral tab 1 tab once daily; parker parker 12: 12:40 Home Meds: Requip 1 mg Oral tab 1 tab daily; parker parker 12:40 Home Meds: Symbicort 160-4.5 mcg/actuation inhalation HFAA 2 puffs 2 times per parker day; parker 12:40 Home Meds: None; parker parker 16:35 16:33 Reassessment: Patient appears in no apparent distress at this time. No changes ww from previously documented assessment. Patient and/or family updated on plan of care and expected duration. Pain level reassessed. Patient is alert, oriented x 3, equal unlabored respirations, skin warm/dry/pink. ww
[2021-07-31 17:51] VITALS: TEMP 97.8
[2021-07-31 17:54] VITALS: BP 139/94; O2SAT 100
== END 2021-07-31 17:42 | disposition home or self-care (01) ==
LOC: ER 12:28
DX: K94.29 Other complications of gastrostomy (principal)
CPT/HCPCS: 49465; 99284